=== PATIENT | male | born 1960 | race Caucasian/White ===

== ENCOUNTER 2021-07-06 19:13 | Emergency (ER) | payer OTHER, SELFPAY ==
[2021-07-06 19:14] VITALS: BP 196/114; PULSE 75; RESP 20; TEMP 36.8; O2SAT 95; BMI 57.7
[2021-07-06 19:50] VITALS: BP 186/87; RESP 20; O2SAT 93
--- NOTE | 2021-07-06 19:58 | EX.ED.DYSGE1 ---
HPI History of Present Illness Chief Complaint: Shortness of Breath Narrative Narrative: Positive COVID-19 infection 6 days ago. Nonvaccinated. Symptoms 8 days ago with cough and congestion. No loss of taste or smell. Loose stool yesterday. Today nauseated. States dyspnea is improvement. Just feels fatigued. History of paroxysmal atrial fibrillation. History of diabetes on oral medications. States history of peripheral edema on water pills. He does not take anticoagulation medications. First infection. [facility] Medical History Atrial fibrillation Diabetes Hypertension Home Medications carvedilol [Coreg] 25 mg PO BID 07/06/21 [History Last Taken Unknown] diltiazem HCl [Cartia XT] 120 mg PO DAILY 07/06/21 [History Last Taken Unknown] fluoxetine 40 mg PO DAILY 07/06/21 [History Last Taken Unknown] glyburide-metformin 1 tab PO BID 07/06/21 [History Last Taken Unknown] lisinopril 40 mg PO DAILY 07/06/21 [History Last Taken Unknown] metolazone 2.5 mg PO DAILY 07/06/21 [History Last Taken Unknown] potassium chloride 10 meq PO DAILY 07/06/21 [History Last Taken Unknown] spironolactone 25 mg PO DAILY 07/06/21 [History Last Taken Unknown] torsemide 100 mg PO DAILY 07/06/21 [History Last Taken Unknown] Allergy/AdvReac Type Severity Reaction Status Date / Time codeine Allergy Swelling Verified 07/06/21 19:17 Surgical History History of elbow surgery Social History Smoking Status: Former smoker ROS ROS ED Constitutional Constitutional ED: Denies chills, fever(s) or sweats Eyes Eyes: Denies change in vision ENT ENT ED: Denies dysphagia or sore throat Cardiovascular Cardiovascular: Denies chest pain, leg edema, palpitations or racing heartbeat Respiratory/Chest Respiratory/Chest: Reports cough and dyspnea; Denies dyspnea on exertion Gastrointestinal Gastrointestinal: Reports nausea; Denies abdominal pain, diarrhea or vomiting Genitourinary Genitourinary ED: Denies dysuria, hematuria or urinary frequency Musculoskeletal Musculoskeletal: Denies back pain, extremity pain or neck pain Integumentary Denies rash or wounds Neurologic Neurologic: Denies headache(s), paresthesias or weakness EXAM Physical Exam Const Vital Signs: 07/06/21 19:14 07/06/21 19:50 07/06/21 20:25 Temperature 98.3 F Temperature Source Temporal Pulse Rate 75 Respiratory Rate 20 H 20 H Blood Pressure 196/114 H 186/87 H Blood Pressure Mean 141 120 Pulse Ox 95 93 96 Oxygen Delivery Method Room Air Room Air Nasal Cannula Oxygen Flow Rate (L/min) 2 07/06/21 21:18 Temperature 98.3 F Temperature Source Temporal Pulse Rate 78 Respiratory Rate 20 H Blood Pressure 184/78 H Blood Pressure Mean 113 Pulse Ox 97 Oxygen Delivery Method Nasal Cannula Oxygen Flow Rate (L/min) 2 Positive well nourished and well developed General Appearance ED: well developed and NAD HEENT Reports dry mucous membranes normocephalic and atraumatic Mouth ED: Yes dry mucous membranes Mouth: dry mucous membranes Eyes PERRL, EOMs intact bilaterally and conjunctivae normal General Eye ED: Yes normal appearance of both eyes Neck no lymphadenopathy and supple General: Negative for tenderness Chest Wall Chest: Negative for tenderness Resp normal respiratory effort and normal air movement Effort and Inspection: symmetric chest movement; Negative for respiratory distress Cardio regular rate, regular rhythm and no murmurs Peripheral Pulses: pulses 2+ throughout GI normal to inspection, nondistended, normoactive bowel sounds and non-tender Palpation: Negative for guarding or rebound tenderness present Back/Spine no CVA tenderness and no thoracic nor lumbar tenderness Extremity normal to inspection General Extremety ED: Negative for edema or tenderness General Extremity: Negative for edema Neuro oriented x3 and no sensory deficits noted Sensorium / Orientation: awake and alert Skin no rashes or lesions noted and no wounds MDM MDM MDM Narrative Medical decision making narrative: Patient vitals stable pulse ox 93% on arrival. Blood glucose 135. He is already on Decadron. Concerning work-up labs are stable chest x-ray notes viral pneumonia. With sitting nursing no pulse ox 88% he is placed on oxygen is stable. With his hypoxia I spoke with hospitalist team for admission. He did be a candidate for antiviral treatment. He will be placed on the Covid floor. Lab Data Labs: Laboratory Results - last 24 hr 07/06/21 07/06/21 07/06/21 19:45 19:45 20:16 WBC 5.5 RBC 4.34 L Hgb 12.9 L Hct 39.3 L MCV 90.6 MCH 29.7 MCHC 32.8 RDW Std Deviation 45.9 H RDW Coeff of Daniel 13.8 Plt Count 167 MPV 9.5 Immature Gran % (Auto) 0.600 Neut % (Auto) 73.5 H Lymph % (Auto) 14.7 L [place] % (Auto) 9.0 Eos % (Auto) 1.8 Baso % (Auto) 0.4 Absolute Neuts (auto) 4.0 Absolute Lymphs (auto) 0.80 L Nucleated RBC % 0 Sodium 137 Potassium 3.4 L Chloride 102 Carbon Dioxide 31.0 Anion Gap 4 L BUN 13 Creatinine 1.09 Estim Creat Clear Calc 83.79 Est GFR (MDRD) Af Amer 89 Est GFR (MDRD) Non-Af 73 BUN/Creatinine Ratio 11.9 Glucose 123 H Calcium 8.6 POC Glucose 135 H Radiography Chest X-Ray - ED: 1 View, Read by ED Physician and Read by Radiologist Diagnostic Testing: Radiology Impression Chest X-Ray 07/06/21 20:15 IMPRESSION: Hazy bilateral airspace disease suspicious for pneumonia including atypical or viral pneumonia. at 2120 Reported and signed by: Saals Kaufman MD Electronically Signed: Salas Kaufman MD at 21:19 EDT Tel , Service support , Viral pneumonia Discharge Plan Triage Chief Complaint: Shortness of Breath ED Provider: Doc Oglesby Dx/Rx/DC Orders Clinical Impression: COVID-19 virus infection, Hypoxia Prescriptions: No Action fluoxetine 40 mg Capsule 40 mg PO DAILY RF: 0 metolazone 2.5 mg Tablet 2.5 mg PO DAILY RF: 0 carvedilol [Coreg] 25 mg Tablet 25 mg PO BID RF: 0 potassium chloride 10 mEq Tablet Extended Release 10 meq PO DAILY RF: 0 spironolactone 25 mg Tablet 25 mg PO DAILY RF: 0 torsemide 100 mg Tablet 100 mg PO DAILY RF: 0 glyburide-metformin 5-500 mg Tablet 1 tab PO BID RF: 0 diltiazem HCl [Cartia XT] 120 mg capsule,extended release 24hr 120 mg PO DAILY RF: 0 lisinopril 40 mg Tablet 40 mg PO DAILY RF: 0 Primary Care Provider: Wale Melgoza Referrals: Wale Melgoza MD [Primary Care Provider] - Disposition Disposition: Acute Care Hospital
--- NOTE | 2021-07-06 20:15 | RAD_ITS ---
HISTORY: cough, covid 19 EXAMINATION/TECHNIQUE: XR Chest 1 View: 1 view COMPARISON: None FINDINGS: LINES/DEVICES: None. LUNGS: Hazy bilateral airspace opacities without consolidation or effusion. No pneumothorax. MEDIASTINUM AND CARDIOVASCULAR STRUCTURES: Cardiac silhouette not enlarged. Central airways and mediastinal contour are unremarkable. BONES AND SOFT TISSUES: No acute bony abnormalities. RAD/Chest 1 View (Portable) IMPRESSION: Hazy bilateral airspace disease suspicious for pneumonia including atypical or viral pneumonia. at 2120 Reported and signed by: Salas Kaufman MD Electronically Signed: Salas Kaufman MD at 21:19 EDT Tel , Service support ,
[2021-07-06] MEDS: Ondansetron 4 MG/2 ML Vial IV (20:24)
[2021-07-06 20:25] VITALS: O2SAT 88; O2SAT 96
[2021-07-06 20:25] LABS: Basophil# 0.02 X10^3/uL; Basophil% 0.4 % (0-1); Eosinophils% 1.8 % (0-5); Hematocrit 39.3 % (40-54); Hemoglobin 12.9 g/dL (13.0-16.5); Lymphocyte % 14.7 % (19-41); Mean Corp Hgb Conc 32.8 g/dL (32-36); Mean Corpuscular Hgb 29.7 pg (27.0-32.0); Mean Corpuscular Volume 90.6 fL (80-94); Mean Platelet Vol. 9.5 fl (6.2-12.0); Monocyte# 0.49 X10^3/uL; NRBC Flagged by Analyzer 0 % (0-5); Neutrophil # 4.01 X10^3/uL (2.7-7.7); Neutrophil % 73.5 % (47-70); Platelet Count 167 K/mm3 (150-450); RBC Distribution Width CV 13.8 % (11.6-14.6); RBC Distribution Width SD 45.9 fl (35.1-43.9); Red Blood Count 4.34 M/mm3 (4.6-6.2); White Blood Count 5.5 K/mm3 (4.4-11.0)
[2021-07-06 20:26] LABS: Bedside Glucose 135 mg/dL (70-110)
[2021-07-06 20:35] LABS: Anion Gap 4 (5-15); BUN 13 mg/dL (7-18); BUN/Creat Ratio 11.9 RATIO (10-20); Calcium,Total 8.6 mg/dL (8.5-10.1); Chloride 102 mmol/L (98-107); Creatinine, Serum 1.09 mg/dL (0.70-1.30); EST Glomerular Filtration Rate 73 mL/min (>60); Est Glom Filt Rate - Afr Amer 89 mL/min (>60); Estimated Creatinine Clearance 83.79 ml/min; Glucose 123 mg/dL (74-106); Potassium 3.4 mmol/L (3.5-5.1); Sodium Level 137 mmol/L (136-145)
[2021-07-06] MEDS: dexAMETHasone 4 MG Tablet 6 MG PO (21:15)
[2021-07-06 21:18] VITALS: BP 184/78; PULSE 78; RESP 20; TEMP 36.8; O2SAT 97
[2021-07-06 21:53] VITALS: BP 175/84; PULSE 70; RESP 20; TEMP 37.1; O2SAT 97
[2021-07-06 22:17] VITALS: O2SAT 93
--- NOTE | 2021-07-06 22:18 | ED.RN ---
pt refused to sign AMA paperwork. aware of O2 sats being a reason for admission but does not feel he needs to stay.
== END 2021-07-06 22:20 | disposition left against medical advice (07) ==
LOC: ED 21:45 → PCU 22:03
PROVIDERS: Emergency Provider Emergency Medicine; PCP Family Medicine
DX: U07.1 COVID-19 (principal); R09.02 Hypoxemia; Z53.21 Procedure and treatment not carried out due to patient leaving prior to being seen by health care provider; I10 Essential (primary) hypertension; E11.9 Type 2 diabetes mellitus without complications; I48.0 Paroxysmal atrial fibrillation; Z79.84 Long term (current) use of oral hypoglycemic drugs; Z79.899 Other long term (current) drug therapy; Z87.891 Personal history of nicotine dependence
CPT/HCPCS: 71045; 80048; 82962; 85025; 96361; 96374; 99285; J7040; A4216; J2405

== ENCOUNTER 2022-06-03 10:31 | Inpatient (IN) | payer OTHER, SELFPAY ==
[2022-06-03] VITALS (19 sets, daily range): BP systolic 112–175; BP diastolic 46–97; PULSE 51–92; RESP 12–22; TEMP 36.1–37.1; O2SAT 43–100; BMI 51.4
--- NOTE | 2022-06-03 | OM_PTH ---
PATIENT: CHERYL HERRERA LOC: MS3 U#:[id number] AGE/SX: 61/M ROOM: [facility] [place] RE06/03/[address]: Dr. Odessa Guzman MD : 1960 BED: 1 DIS: 06/07/2022 SPEC #: [id number] RECD: 06/06/22 08:04 STATUS: GILMAR RELindsay #: [id number] RAMONA: 06/03/22 00:[address]: Odessa Guzman DEPT: SURGICAL PATHOLOGY RECD BY: Jose Perdue ENTERED: 06/06/22 08:47 SP TYPE: OMENTUM OTHR DR: Dr. Wale Melgoza MD Tissues: A - Omentum, NOS B - HERNIA Procedures: Surgery Specimen Level II Surgery Specimen Level III HEADER OPERATION: Exploratory laparotomy, repair incarcerated ventral hernia PRE-OP DIAGNOSIS: Incarcerated ventral hernia, incarcerated umbilical hernia TISSUE SUBMITTED: A ? Omentum, B ? Hernia sac MICROSCOPIC DIAGNOSIS A. Omentum, partial excision: Mature adipose tissue consistent with omentum with focal vascular congestion and hemorrhage. B. Hernia sac, herniorrhaphy: Fibrosis and mild chronic inflammation. AM:ulysses 06/07/2022 MICROSCOPIC DESCRIPTION Slides are reviewed. GROSS DESCRIPTION A - Received in fixative is one container labeled with the patient's name and designated omentum. The specimen consists of two irregular fragments of yellow fatty tissue resembling omentum that in aggregate measure 23 x 15 x 5 cm. Serial sections do not reveal mass lesions. Paving Stone Installer sections are submitted in three cassettes. B - Received in fixative is one container labeled with the patient's name and designated hernia sac. The specimen consists of three irregular fragments of glistening sanches soft tissue with patchy yellow fatty tissue that in aggregate measure 14 x 12 x 3 cm. Serial sections do not reveal mass lesions. Paving Stone Installer sections are submitted in two cassettes. / AM:ulysses 06/06/2022 TC:3 CPT: 64638, 42318
--- NOTE | 2022-06-03 10:40 | EKG12_ITS ---
Test Reason : ABD PAIN Blood Pressure : / mmHG Vent. Rate : 056 BPM Atrial Rate : 220 BPM P-R Int : 000 ms QRS Dur : 098 ms QT Int : 526 ms P-R-T Axes : 000 -51 026 degrees QTc Int : 507 ms Atrial fibrillation Left anterior fascicular block Prolonged QT Abnormal ECG Confirmed by MAYURI HUANG, MARILY ([id number]), offline editor DARYL ZIMMERMAN ([id number]) on 06/06/2022 11:27:31 AM Referred By: HORACE Confirmed By:MARILY MESSINA MD
--- NOTE | 2022-06-03 10:40 | CT_ITS ---
STUDY: CT ABDOMEN AND PELVIS WITH CONTRAST REASON FOR EXAM: Male, 61 years old. Abd pain, hernia RADIATION DOSAGE (If Supplied By Facility): CTDIvol = ( 18.74 ) mGy, DLP = ( 1390.01 ) mGycm TECHNIQUE: Transaxial images were obtained from the dome of the diaphragm to the symphysis pubis without oral contrast. IV 100mL Isovue-300 was administered. Sagittal and coronal images were reconstructed. Individualized dose optimization techniques were used for this CT. COMPARISON: None. FINDINGS: Mild increased markings at the lung bases suggestive of atelectasis. Coronary artery calcification. Normal liver. There are multiple small gallstones. Normal spleen. Normal pancreas. Normal bilateral adrenal glands. Normal right kidney. Normal left kidney. There is a small hiatal hernia. Normal small intestine. Normal colon. The appendix is visualized and appears normal. There is diffuse atherosclerotic calcification of the abdominal aorta, without a demonstrated aneurysm. Normal inferior vena cava. There is borderline retroperitoneal lymphadenopathy with enlarged nodes no greater than 10mm in the short axis diameter. Normal urinary bladder. Large left paramedian anterior abdominal wall hernia containing fat and nondilated small bowel loops. The neck of the hernia measures 4.8 cm. Increased markings in the subcutaneous tissues overlying the anterior abdominal wall. There are degenerative changes of the visualized lumbar spine. CT/Abdomen/Pelvis W IV Cont ONLY IMPRESSION: Large left paramedian hernia containing fat and nondilated small bowel loops. The neck of the hernia measures 4.8 cm. Multiple small gallstones. Electronically Signed: Romulo Schulz MD at 12:44 EDT ,
--- NOTE | 2022-06-03 10:42 | EX.ED.DYSGE1 ---
HPI History of Present Illness Chief Complaint: Abd Pain Informant: patient Onset/Context/Timing Onset: Today Current Severity: Moderate Maximum Severity: Moderate Narrative Narrative: Patient present secondary to abdominal pain along with nausea, vomiting, and diarrhea. Patient states he started coughing this morning and had sudden worsening abdominal pain around his umbilical hernia. He has had an umbilical hernia for years with no problems. Since then he has had nausea vomiting with a couple episodes of diarrhea as well. No fever or chills. [facility] Medical History Atrial fibrillation Diabetes Hypertension Home Medications carvedilol 25 mg tablet (Coreg) 25 mg PO BID 07/06/21 [History Last Taken Unknown] diltiazem HCl 120 mg capsule,extended release 24 hr (Cartia XT) 120 mg PO DAILY 07/06/21 [History Last Taken Unknown] fluoxetine 40 mg capsule 40 mg PO DAILY 07/06/21 [History Last Taken Unknown] glyburide 5 mg-metformin 500 mg tablet 1 tab PO BID 07/06/21 [History Last Taken Unknown] lisinopril 40 mg tablet 40 mg PO DAILY 07/06/21 [History Last Taken Unknown] metolazone 2.5 mg tablet 2.5 mg PO DAILY 07/06/21 [History Last Taken Unknown] potassium chloride 10 mEq tablet,extended release 10 meq PO DAILY 07/06/21 [History Last Taken Unknown] spironolactone 25 mg tablet 25 mg PO DAILY PRN PRN fluid 07/06/21 [History Last Taken Unknown] torsemide 100 mg tablet 100 mg PO DAILY 07/06/21 [History Last Taken Unknown] Allergy/AdvReac Type Severity Reaction Status Date / Time codeine Allergy Swelling Verified 06/03/22 10:36 Surgical History History of elbow surgery Social History Smoking Status: Former smoker ROS ROS ED Constitutional Constitutional ED: Denies chills or fever(s) Eyes Eyes: Denies change in vision or discharge from eye(s) ENT ENT ED: Denies discharge from eye(s), rhinorrhea or sore throat Cardiovascular Cardiovascular: Denies chest pain or palpitations Respiratory/Chest Respiratory/Chest: Denies cough or dyspnea Gastrointestinal Gastrointestinal: Reports abdominal pain, diarrhea, nausea and vomiting Genitourinary Genitourinary ED: Denies dysuria Musculoskeletal Musculoskeletal: Denies back pain or extremity pain Integumentary Denies Abrasions or rash Neurologic Neurologic: Denies headache(s) or weakness Psychiatric Psychiatric: Denies anxiety or depression Allergic/Immunologic Allergic/Immunologic ED: Denies lip swelling or urticaria EXAM Physical Exam Const Vital Signs: 06/03/22 10:32 06/03/22 11:00 06/03/22 11:31 Temperature 96.9 F L Temperature Source Temporal Pulse Rate 54 L 54 L Pulse Rate [1] Pulse Rate [2] Pulse Rate [3] Pulse Rate [4] Respiratory Rate 17 17 Respiratory Rate [1] Respiratory Rate [2] Respiratory Rate [3] Respiratory Rate [4] Blood Pressure 170/75 H 175/97 H Blood Pressure [1] Blood Pressure [2] Blood Pressure [3] Blood Pressure [4] Blood Pressure Mean 106 123 Pulse Ox 94 99 99 Oxygen Delivery Method Room Air Nasal Cannula Nasal Cannula Oxygen Delivery Method [1] Oxygen Delivery Method [2] Oxygen Delivery Method [3] Oxygen Delivery Method [4] Oxygen Flow Rate (L/min) 2 2 Oxygen Flow Rate (L/min) [1] Oxygen Flow Rate (L/min) [2] Oxygen Flow Rate (L/min) [3] Oxygen Flow Rate (L/min) [4] 06/03/22 12:45 06/03/22 15:09 06/03/22 15:13 Temperature Temperature Source Pulse Rate 51 L 58 L Pulse Rate [1] 56 L Pulse Rate [2] 61 Pulse Rate [3] 58 L Pulse Rate [4] 70 Respiratory Rate 17 21 H Respiratory Rate [1] 21 H Respiratory Rate [2] 19 H Respiratory Rate [3] 22 H Respiratory Rate [4] 21 H Blood Pressure 135/78 H 154/73 H Blood Pressure [1] 157/78 H Blood Pressure [2] 146/79 H Blood Pressure [3] 146/79 H Blood Pressure [4] 151/83 H Blood Pressure Mean 97 Pulse Ox 99 43 Oxygen Delivery Method Nasal Cannula Nasal Cannula Oxygen Delivery Method [1] Nasal Cannula Oxygen Delivery Method [2] Nasal Cannula Oxygen Delivery Method [3] Nasal Cannula Oxygen Delivery Method [4] Nasal Cannula Oxygen Flow Rate (L/min) 2 5 Oxygen Flow Rate (L/min) [1] 6 Oxygen Flow Rate (L/min) [2] 6 Oxygen Flow Rate (L/min) [3] 6 Oxygen Flow Rate (L/min) [4] 6 06/03/22 14:00 06/03/22 15:00 06/03/22 15:20 Temperature Temperature Source Pulse Rate 54 L 59 L Pulse Rate [1] Pulse Rate [2] Pulse Rate [3] Pulse Rate [4] Respiratory Rate 19 H 20 H Respiratory Rate [1] Respiratory Rate [2] Respiratory Rate [3] Respiratory Rate [4] Blood Pressure 159/77 H 158/77 H Blood Pressure [1] Blood Pressure [2] Blood Pressure [3] Blood Pressure [4] Blood Pressure Mean 104 104 Pulse Ox 100 100 Oxygen Delivery Method Nasal Cannula Nasal Cannula Nasal Cannula Oxygen Delivery Method [1] Oxygen Delivery Method [2] Oxygen Delivery Method [3] Oxygen Delivery Method [4] Oxygen Flow Rate (L/min) 2 2 2 Oxygen Flow Rate (L/min) [1] Oxygen Flow Rate (L/min) [2] Oxygen Flow Rate (L/min) [3] Oxygen Flow Rate (L/min) [4] 06/03/22 15:25 06/03/22 15:20 06/03/22 15:25 Temperature Temperature Source Pulse Rate 58 L 59 L Pulse Rate [1] Pulse Rate [2] Pulse Rate [3] Pulse Rate [4] Respiratory Rate 18 22 H Respiratory Rate [1] Respiratory Rate [2] Respiratory Rate [3] Respiratory Rate [4] Blood Pressure 151/83 H 159/82 H Blood Pressure [1] Blood Pressure [2] Blood Pressure [3] Blood Pressure [4] Blood Pressure Mean Pulse Ox 98 99 Oxygen Delivery Method Nasal Cannula Nasal Cannula Nasal Cannula Oxygen Delivery Method [1] Oxygen Delivery Method [2] Oxygen Delivery Method [3] Oxygen Delivery Method [4] Oxygen Flow Rate (L/min) 2 2 2 Oxygen Flow Rate (L/min) [1] Oxygen Flow Rate (L/min) [2] Oxygen Flow Rate (L/min) [3] Oxygen Flow Rate (L/min) [4] 06/03/22 15:32 Temperature Temperature Source Pulse Rate 51 L Pulse Rate [1] Pulse Rate [2] Pulse Rate [3] Pulse Rate [4] Respiratory Rate 20 H Respiratory Rate [1] Respiratory Rate [2] Respiratory Rate [3] Respiratory Rate [4] Blood Pressure 155/82 H Blood Pressure [1] Blood Pressure [2] Blood Pressure [3] Blood Pressure [4] Blood Pressure Mean Pulse Ox 98 Oxygen Delivery Method Nasal Cannula Oxygen Delivery Method [1] Oxygen Delivery Method [2] Oxygen Delivery Method [3] Oxygen Delivery Method [4] Oxygen Flow Rate (L/min) 2 Oxygen Flow Rate (L/min) [1] Oxygen Flow Rate (L/min) [2] Oxygen Flow Rate (L/min) [3] Oxygen Flow Rate (L/min) [4] Positive well nourished, well developed and obese General Appearance ED: well developed Nutritional Appearance: obese HEENT Reports normocephalic and head/scalp atraumatic Eyes PERRL and EOMs intact bilaterally Neck supple Chest Wall inspection of chest normal and palpation of chest normal Resp normal respiratory effort and clear to auscultation bilaterally Cardio regular rate and regular rhythm GI GI Narrative: Generalized abdominal exam reveals soft abdomen with hypoactive bowel sounds. Patient has a painful, distended, firm umbilical hernia measuring 15 x 9 cm just superior to the umbilicus. Palpation: soft Extremity normal to inspection Neuro oriented x3 and no sensory deficits noted Sensorium / Orientation: alert Motor Exam: strength 5/5 throughout Psych mental status grossly normal Skin no rashes or lesions noted MDM MDM MDM Narrative Medical decision making narrative: Patient placed on tour escort. EKG, lab work, CT abdomen pelvis with IV contrast obtained. Patient given morphine and Zofran for pain along with IV fluids. Lab Data Attestation: I reviewed the patient's lab results. Labs: Laboratory Results - last 24 hr 06/03/22 06/03/22 06/03/22 10:50 10:50 10:50 WBC 10.9 RBC 4.42 L Hgb 13.3 Hct 40.3 MCV 91.2 MCH 30.1 MCHC 33.0 RDW Std Deviation 48.0 H RDW Coeff of Daniel 14.3 Plt Count 224 MPV 9.4 Immature Gran % (Auto) 0.400 Neut % (Auto) 85.2 H Lymph % (Auto) 8.7 L [place] % (Auto) 4.4 Eos % (Auto) 0.8 Baso % (Auto) 0.5 Absolute Neuts (auto) 9.3 H Absolute Lymphs (auto) 0.95 Nucleated RBC % 0 Sodium 140 Potassium 3.9 Chloride 104 Carbon Dioxide 31.0 Anion Gap 5 BUN 26 H Creatinine 1.40 H Estim Creat Clear Calc 64.42 Est GFR (MDRD) Af Amer 66 Est GFR (MDRD) Non-Af 55 L BUN/Creatinine Ratio 18.6 Glucose 189 H Lactic Acid 1.3 Calcium 9.3 Total Bilirubin 0.70 Direct Bilirubin 0.30 AST 16 ALT 16 Alkaline Phosphatase 79 Total Protein 8.0 Albumin 3.7 Globulin 4.3 H Radiography Diagnostic Testing: Clinical Impression(s) from Imaging Studies Abdomen/Pelvis CT 06/03/22 10:40 IMPRESSION: Large left paramedian hernia containing fat and nondilated small bowel loops. The neck of the hernia measures 4.8 cm. Multiple small gallstones. Electronically Signed: Romulo Schulz MD at 12:44 EDT , EKG Initial EKG: Attestation: I personally reviewed and interpreted this EKG as follows: Interpretation: Atrial Fibrillation (Atrial fibrillation with ventricular rate of 56 bpm. QTC is 507.) Treatment and Re-Evaluation Narrative: Lab work is unremarkable with a normal lactic acid. Creatinine is slightly bumped at 1.4. Patient's O2 sat did drop to around 89% after receiving pain medication. He is currently on 2 L nasal cannula and satting in the high 90s. CT scan reveals hernia with loop of bowel. On repeat evaluation patient was resting much more comfortably and I attempted to reduce hernia without success. I spoke with surgery who presented to the emergency room. She attempted to reduce hernia without success as well. Patient was consented for procedural sedation and attempt at umbilical reduction was obtained under sedation. Repeat CT images revealed that this was again unsuccessful. Patient be admitted to surgery with plan to go to the OR later tonight. Procedures Procedural Sedation Procedural sedation for umbilical hernia reduction: Consent Signed: Yes Any Problems With Anesthesia: Yes (Made me sick) You/Your family experience fever (hyperthermia) w/anesthesia: No Sedation medication: Propofol (100 mg total given in 2 separate aliquots.) Dose: 100 Route: IV Mallampati Score: Class III ASA Classification: III Discharge Plan Triage Chief Complaint: Abd Pain ED Provider: Marcie Lee Dx/Rx/DC Orders Clinical Impression: Hernia, umbilical Primary Care Provider: Wale Melgoza Disposition Disposition: Acute Care Hospital [facility]
[2022-06-03] MEDS: 0.9% Normal Saline 1,000 ML 150 ML IV (10:47)
[2022-06-03] MEDS: Ondansetron 4 MG/2 ML Vial IV (10:47)
[2022-06-03] MEDS: Morphine 4 MG/ML Syringe IV (10:47)
[2022-06-03 11:09] LABS: Absolute Lymphocyte Count 0.95 X10^3/uL (0.83-4.51); Absolute Neutrophil Count 9.3 X10^3/uL (2.0-7.7); Basophil# 0.05 X10^3/uL; Basophil% 0.5 % (0-1); Eosinophil# 0.09 X10^3/uL; Eosinophils% 0.8 % (0-5); Hematocrit 40.3 % (40-54); Hemoglobin 13.3 g/dL (13.0-16.5); Lymphocyte # 0.95 X10^3/ul (0.83-4.51); Lymphocyte % 8.7 % (19-41); Mean Corpuscular Hgb 30.1 pg (27.0-32.0); Mean Corpuscular Volume 91.2 fL (80-94); Mean Platelet Vol. 9.4 fl (6.2-12.0); Monocyte# 0.48 X10^3/uL; Monocyte% 4.4 % (0-10); NRBC Flagged by Analyzer 0 % (0-5); Neutrophil # 9.33 X10^3/uL (2.7-7.7); Neutrophil % 85.2 % (47-70); Platelet Count 224 K/mm3 (150-450); RBC Distribution Width CV 14.3 % (11.6-14.6); Red Blood Count 4.42 M/mm3 (4.6-6.2); White Blood Count 10.9 K/mm3 (4.4-11.0)
[2022-06-03 11:16] LABS: AST(SGOT) 16 U/L (15-37); Alanine Aminotransfer ALT/SGPT 16 U/L (16-61); Albumin, Serum 3.7 g/dL (3.2-5.0); Alkaline Phosphatase 79 U/L (45-117); Anion Gap 5 (5-15); BUN 26 mg/dL (7-18); BUN/Creat Ratio 18.6 RATIO (10-20); Calcium,Total 9.3 mg/dL (8.5-10.1); Chloride 104 mmol/L (98-107); EST Glomerular Filtration Rate 55 mL/min (>60); Est Glom Filt Rate - Afr Amer 66 mL/min (>60); Estimated Creatinine Clearance 64.42 ml/min; Globulin 4.3 g/dL (2.2-4.2); Glucose 189 mg/dL (74-106); Potassium 3.9 mmol/L (3.5-5.1); Sodium Level 140 mmol/L (136-145)
[2022-06-03 11:24] LABS: Lactic Acid 1.3 mmol/L (0.4-1.9)
[2022-06-03] MEDS: proMETHazine 25 MG/ML Syringe IM (14:31)
[2022-06-03] MEDS: Propofol 200 MG/20 ML Vial IV BOLUS (15:12)
--- NOTE | 2022-06-03 15:21 | CT_ITS ---
EXAM: CT ABDOMEN WITHOUT INTRAVENOUS CONTRAST CLINICAL INDICATION: hernia TECHNIQUE: Helically acquired images were obtained of the abdomen without intravenous contrast. This CT exam was performed using one or more of the following dose reduction techniques: automated exposure control, adjustment of the mA and/or kV according to patient size, and/or use of iterative reconstruction technique. This report was created using [employer] report generation technology. COMPARISON: 11:55 AM. FINDINGS: LOWER THORAX: Unremarkable. Lung bases are clear. No cardiomegaly. No significant pericardial effusion. LIVER: Unremarkable. Homogeneous. GALLBLADDER AND BILE DUCTS: Multiple dependent stones in the gallbladder. No gallbladder distention or wall edema. No intra- or extrahepatic biliary ductal dilation. PANCREAS: Unremarkable. No focal cystic mass. SPLEEN: Unremarkable. Normal size without focal cystic or solid mass. ADRENALS: Unremarkable. No nodules. KIDNEYS AND URETERS: Retained contrast in the renal collecting systems. No filling defect. 6 cm low-attenuation lesion arising from the right kidney, cystic based on earlier examination. No hydronephrosis. STOMACH AND BOWEL: Moderate left periumbilical abdominal wall hernia contains a loop of mildly dilated small bowel. Distal small bowel is decompressed. The neck of the hernia measures 4.7 cm, unchanged. Diverticulosis, no acute diverticulitis. INTRAPERITONEAL SPACE: Unremarkable. No ascites or other fluid collection. No free air. BONES/JOINTS: Lumbar canal stenosis at L3-4 and L4-5. No suspicious lytic or blastic abnormality. VASCULATURE: Abdominal aorta is normal in caliber. LYMPH NODES: No enlarged lymph nodes. CT/Abdomen without IV Contrast IMPRESSION: 1. Moderate left paraumbilical hernia with suspected low-grade/partial small bowel obstruction. 2. Cholelithiasis. 3. Lumbar canal stenosis. 4. Right renal cyst. Follow-up is not indicated per ACR guidelines. Electronically Signed: Kim Perez MD at 16:36 EDT Reading Location ID and State: [id number] / Tel , Service support ,
--- NOTE | 2022-06-03 15:23 | HP.PCM_ITS ---
HPI - General General Chief Complaint: Abdominal pain/ventral hernia HPI Narrative CHERYL HERRERA, is a 61 M who presents to the ER due to abdominal pain/ventral hernia. Patient states he noticed increased pain after coughing about 5 AM this morning. Patient was driving to work but did have increased pain thus came to the ER. In the ER patient had a CT abdomen pelvis which showed an umbilical hernia containing nondilated bowel and an additional hernia directly superior with some reactive changes/fluid in the hernia. Patient denies any abdominal surgeries. Patient states that normally his umbilical hernia is out and has been for a while and is usually firm to touch. Unable to reduce after pain meds. [facility] Medical History Atrial fibrillation Diabetes Hypertension Home Medications carvedilol 25 mg tablet (Coreg) 25 mg PO BID 07/06/21 [History Last Taken Unknown] diltiazem HCl 120 mg capsule,extended release 24 hr (Cartia XT) 120 mg PO DAILY 07/06/21 [History Last Taken Unknown] fluoxetine 40 mg capsule 40 mg PO DAILY 07/06/21 [History Last Taken Unknown] glyburide 5 mg-metformin 500 mg tablet 1 tab PO BID 07/06/21 [History Last Taken Unknown] lisinopril 40 mg tablet 40 mg PO DAILY 07/06/21 [History Last Taken Unknown] metolazone 2.5 mg tablet 2.5 mg PO DAILY 07/06/21 [History Last Taken Unknown] potassium chloride 10 mEq tablet,extended release 10 meq PO DAILY 07/06/21 [History Last Taken Unknown] spironolactone 25 mg tablet 25 mg PO DAILY PRN PRN fluid 07/06/21 [History Last Taken Unknown] torsemide 100 mg tablet 100 mg PO DAILY 07/06/21 [History Last Taken Unknown] Allergy/AdvReac Type Severity Reaction Status Date / Time codeine Allergy Swelling Verified 06/03/22 10:36 Surgical History History of elbow surgery Social History Smoking Status: Former smoker Vital Signs Vital Signs Vital Signs: 06/03/22 10:32 06/03/22 11:00 06/03/22 11:31 Temperature 96.9 F L Temperature Source Temporal Pulse Rate 54 L 54 L Pulse Rate [1] Pulse Rate [2] Pulse Rate [3] Pulse Rate [4] Respiratory Rate 17 17 Respiratory Rate [1] Respiratory Rate [2] Respiratory Rate [3] Respiratory Rate [4] Blood Pressure 170/75 H 175/97 H Blood Pressure [1] Blood Pressure [2] Blood Pressure [3] Blood Pressure [4] Blood Pressure Mean 106 123 Pulse Ox 94 99 99 Oxygen Delivery Method Room Air Nasal Cannula Nasal Cannula Oxygen Delivery Method [1] Oxygen Delivery Method [2] Oxygen Delivery Method [3] Oxygen Delivery Method [4] Oxygen Flow Rate (L/min) 2 2 Oxygen Flow Rate (L/min) [1] Oxygen Flow Rate (L/min) [2] Oxygen Flow Rate (L/min) [3] Oxygen Flow Rate (L/min) [4] 06/03/22 12:45 06/03/22 15:09 06/03/22 15:13 Temperature Temperature Source Pulse Rate 51 L 58 L Pulse Rate [1] 56 L Pulse Rate [2] 61 Pulse Rate [3] 58 L Pulse Rate [4] 70 Respiratory Rate 17 21 H Respiratory Rate [1] 21 H Respiratory Rate [2] 19 H Respiratory Rate [3] 22 H Respiratory Rate [4] 21 H Blood Pressure 135/78 H 154/73 H Blood Pressure [1] 157/78 H Blood Pressure [2] 146/79 H Blood Pressure [3] 146/79 H Blood Pressure [4] 151/83 H Blood Pressure Mean 97 Pulse Ox 99 43 Oxygen Delivery Method Nasal Cannula Nasal Cannula Oxygen Delivery Method [1] Nasal Cannula Oxygen Delivery Method [2] Nasal Cannula Oxygen Delivery Method [3] Nasal Cannula Oxygen Delivery Method [4] Nasal Cannula Oxygen Flow Rate (L/min) 2 5 Oxygen Flow Rate (L/min) [1] 6 Oxygen Flow Rate (L/min) [2] 6 Oxygen Flow Rate (L/min) [3] 6 Oxygen Flow Rate (L/min) [4] 6 06/03/22 14:00 Temperature Temperature Source Pulse Rate 54 L Pulse Rate [1] Pulse Rate [2] Pulse Rate [3] Pulse Rate [4] Respiratory Rate 19 H Respiratory Rate [1] Respiratory Rate [2] Respiratory Rate [3] Respiratory Rate [4] Blood Pressure 159/77 H Blood Pressure [1] Blood Pressure [2] Blood Pressure [3] Blood Pressure [4] Blood Pressure Mean 104 Pulse Ox 100 Oxygen Delivery Method Nasal Cannula Oxygen Delivery Method [1] Oxygen Delivery Method [2] Oxygen Delivery Method [3] Oxygen Delivery Method [4] Oxygen Flow Rate (L/min) 2 Oxygen Flow Rate (L/min) [1] Oxygen Flow Rate (L/min) [2] Oxygen Flow Rate (L/min) [3] Oxygen Flow Rate (L/min) [4] Weight Weight: 400 lb 12.806 oz Body Mass Index (BMI) 51.4 Physical Exam Const alert and oriented x3 HEENT normocephalic and head/scalp atraumatic Resp normal respiratory effort Cardio regular rate GI soft to palpation; Negative for non-distended Palpation: tender periumbilical (At incarcerated hernias) and hernia ventral (Large incarcerated ventral hernia, CT actually shows a large hernia as well as a smaller 1 directly superior. Firm, tender, unable to reduce after pain meds); Negative for guarding Extremity no clubbing, cyanosis or edema Neuro CN's II-XII intact bilaterally Psych mental status grossly normal Results Lab / Micro Data Result Diagrams: 06/03/22 10:50 06/03/22 10:50 Labs: Laboratory Results - last 24 hr 06/03/22 10:50: WBC 10.9, RBC 4.42 L, Hgb 13.3, Hct 40.3, MCV 91.2, MCH 30.1, MCHC 33.0, RDW Std Deviation 48.0 H, RDW Coeff of Daniel 14.3, Plt Count 224, MPV 9.4, Immature Gran % (Auto) 0.400, Neut % (Auto) 85.2 H, Lymph % (Auto) 8.7 L, [place] % (Auto) 4.4, Eos % (Auto) 0.8, Baso % (Auto) 0.5, Absolute Neuts (auto) 9.3 H, Absolute Lymphs (auto) 0.95, Nucleated RBC % 0 06/03/22 10:50: Sodium 140, Potassium 3.9, Chloride 104, Carbon Dioxide 31.0, Anion Gap 5, BUN 26 H, Creatinine 1.40 H, Estim Creat Clear Calc 64.42, Est GFR (MDRD) Af Amer 66, Est GFR (MDRD) Non-Af 55 L, BUN/Creatinine Ratio 18.6, Glucose 189 H, Calcium 9.3, Total Bilirubin 0.70, Direct Bilirubin 0.30, AST 16, ALT 16, Alkaline Phosphatase 79, Total Protein 8.0, Albumin 3.7, Globulin 4.3 H 06/03/22 10:50: Lactic Acid 1.3 Radiology Impression Abdomen/Pelvis CT 06/03/22 10:40 IMPRESSION: Large left paramedian hernia containing fat and nondilated small bowel loops. The neck of the hernia measures 4.8 cm. Multiple small gallstones. Electronically Signed: Romulo Schulz MD at 12:44 EDT , Assessment & Plan Assessment/Plan (1) Incarcerated ventral hernia: (2) Umbilical hernia, incarcerated: PLAN: Plan Did review CT abdomen pelvis with the patient and his son. Patient does have a larger umbilical hernia with the neck of about 4-1/2 cm which contains nondilated small bowel. However just superior to that he has an additional hernia about 2 cm which contains abdominal fat as well as reactive changes and fluid. Patient's abdominal pain is likely due to the upper hernia with possible strangulation of abdominal fat. Patient's umbilical hernia does not show any reactive changes and the bowel is nondilated not causing any obstructive symptoms. Plan to try to reduce with sedation by the ER physician. Did discuss with patient if unable to reduce patient may require surgery to be able exploratory laparotomy, repair of incarcerated ventral hernias, possible mesh. Discussed with patient risk of injury to another organ, bleeding, infection, recurrent hernia, which is high likelihood if unable to put mesh due to the reactive changes. Discussed with patient that if the mesh were to be placed and got infected it would need to be removed. Patient had no further question at this time did sign consent prior to the conscious sedation. Addendum: Unsure patient's superior ventral hernia was able to be reduced we will check a quick CT abdomen pelvis noncontrast to see at his the larger hernia is definitely unable to be reduced but that does not seem to be as acute cause of pain currently. Repeat CT abdomen/pelvis showed no change of the incarcerated ventral hernia. Plan for surgery janay. Odessa Guzman M.D. Pager: [phone] [facility] [address] [place] [address], [address] [place] [address] Office: [phone]
--- NOTE | 2022-06-03 16:26 | RAD_ITS ---
STUDY: X-RAY CHEST REASON FOR EXAM: Male, 61 years old. Preop TECHNIQUE: Single AP portable view of the chest. COMPARISON: 07/06/2021 FINDINGS: The lungs are clear and expanded. There is no demonstrated pleural abnormality. Normal size heart. Normal mediastinum and luz. Normal visualized pulmonary arteries. Normal visualized aortic arch and descending thoracic aorta. Normal visualized thoracic spine. Normal visualized ribs, clavicles, and shoulders. There is no demonstrated abnormality of the visualized soft tissue structures of the upper abdomen. RAD/Chest 1 View (Portable) IMPRESSION: Normal x-ray examination of the chest. Electronically Signed: Eris Enriquez DO at 0:23 EDT ,
--- NOTE | 2022-06-03 16:31 | PN.HOSP_ITS ---
Documented by User: Hanna Quintanilla NP, OPEN SHANK COVERER-C 06/03/22 16:44 Subjective Subjective Patient seen and examined in the emergency room. Patient reports abdominal pain which began around 5 AM this morning and associated nausea, vomiting. Evaluated by surgery and found to incarcerated ventral hernia. Plan for OR per surgery. Objective Data Objective Data Vital Signs: Vital Signs Temp Pulse Resp BP Pulse Ox O2 Del Method O2 Flow Rate 96.9 F L 51 L 20 H 155/82 H 98 Nasal Cannula 2 06/03/22 10:32 06/03/22 15:32 06/03/22 15:32 06/03/22 15:32 06/03/22 15:32 06/03/22 15:32 06/03/22 15:32 Oxygen Flow Rate (L/min) [1] 6 Oxygen Flow Rate (L/min) [4] 6 Oxygen Flow Rate (L/min) [3] 6 Oxygen Flow Rate (L/min) [2] 6 Oxygen Flow Rate (L/min) 2 Oxygen Delivery Method [1] Nasal Cannula Oxygen Delivery Method [4] Nasal Cannula Oxygen Delivery Method [3] Nasal Cannula Oxygen Delivery Method [2] Nasal Cannula Oxygen Delivery Method Nasal Cannula Weight: 400 lb 12.806 oz Body Mass Index (BMI) 51.4 Lab / Micro Data Result Diagrams: 06/03/22 10:50 06/03/22 10:50 Labs: Laboratory Results - last 24 hr 06/03/22 10:50: WBC 10.9, RBC 4.42 L, Hgb 13.3, Hct 40.3, MCV 91.2, MCH 30.1, MCHC 33.0, RDW Std Deviation 48.0 H, RDW Coeff of Daniel 14.3, Plt Count 224, MPV 9.4, Immature Gran % (Auto) 0.400, Neut % (Auto) 85.2 H, Lymph % (Auto) 8.7 L, [place] % (Auto) 4.4, Eos % (Auto) 0.8, Baso % (Auto) 0.5, Absolute Neuts (auto) 9.3 H, Absolute Lymphs (auto) 0.95, Nucleated RBC % 0 06/03/22 10:50: Sodium 140, Potassium 3.9, Chloride 104, Carbon Dioxide 31.0, Anion Gap 5, BUN 26 H, Creatinine 1.40 H, Estim Creat Clear Calc 64.42, Est GFR (MDRD) Af Amer 66, Est GFR (MDRD) Non-Af 55 L, BUN/Creatinine Ratio 18.6, Glucose 189 H, Calcium 9.3, Total Bilirubin 0.70, Direct Bilirubin 0.30, AST 16, ALT 16, Alkaline Phosphatase 79, Total Protein 8.0, Albumin 3.7, Globulin 4.3 H 06/03/22 10:50: Lactic Acid 1.3 Radiography Diagnostic Testing: Radiology Impression Abdomen/Pelvis CT 06/03/22 10:40 IMPRESSION: Large left paramedian hernia containing fat and nondilated small bowel loops. The neck of the hernia measures 4.8 cm. Multiple small gallstones. Electronically Signed: Romulo Schulz MD at 12:44 EDT , Physical Exam Const alert and oriented x3 Constitutional Narrative: Appears uncomfortable, flat affect Nutritional Appearance: obese HEENT normocephalic Mouth: dry mucous membranes Eyes PERRL, EOMs intact bilaterally and conjunctivae normal Neck no lymphadenopathy Resp normal respiratory effort and clear to auscultation bilaterally Cardio no murmurs Cardio Narrative: Atrial fibrillation, mild bradycardia Peripheral Pulses: pulses 2+ throughout GI normal to inspection, nondistended, normoactive bowel sounds Palpation: tender and hernia Extremity normal to inspection Skin no rashes or lesions noted Skin Narrative: Chronic venous stasis skin changes bilateral lower extremities Lesions: no lesions Rashes: no rashes Trauma: no lacerations or abrasions Neuro CN's II-XII intact bilaterally, no focal motor deficits, no sensory deficits no stan and deep tendon reflexes 2+ bilaterally Psych mental status grossly normal Assessment & Plan Assessment/Plan (1) Incarcerated ventral hernia: PLAN: Plan 1. Incarcerated ventral hernia-management per surgery. Plan for OR. EKG demonstrates atrial fibrillation with mild bradycardia. Obtain chest x-ray. Patient reports upper respiratory infection 2 weeks ago. Tested negative for COVID. If chest x-ray unremarkable, okay to proceed to OR from medical standpoint. Patient denies shortness of breath, chest pain. 2. Renal insufficiency-likely secondary to #1. IV fluids, trend BMP. 3. Paroxysmal atrial fibrillation-on carvedilol. Heart rate in the 50s. Patient is not on anticoagulation as he states his A. fib is not that bad. [id number] score 2 based on hypertension and diabetes history. Patient ideally should be on oral anticoagulation. Will defer this to primary care following surgical intervention. 4. Hypertension-stable, continue lisinopril, carvedilol. 5. Depression-on fluoxetine. 6. Morbid obesity-diet and lifestyle modifications encouraged. 7. Type 2 diabetes [id number] with sliding scale insulin. Hold oral regimen. Hemoglobin A1c pending. DVT prophylaxis-Per surgery This patient was seen by JAMEY Hankins under the supervision of Dr. Reynoso. Documented by User: Dr. Leanna Reynoso DO 06/03/22 17:08 Subjective Subjective Was seen in conjunction with Hanna Quintanilla NP. The following represents my independent history and physical examination. Please see below for addendum the above. Mr. Mejia is a 61-year-old morbidly obese white male who presents emergency department secondary to abdominal pain, nausea, vomiting and diarrhea. The patient reported he started coughing this morning and had a sudden worsening ons et of abdominal pain around his umbilical hernia. The patient indicated he had an umbilical hernia for years and has not had any episodes with this. Since that point time he had nausea with vomiting and a couple episodes of diarrhea. He denied any fever or chills on presentation. His vital signs are overall unremarkable other than bradycardia. Heart rates have been in the 50s while in the emergency department. Patient is on rate controlling medication with carvedilol 25 mg daily at baseline. He has a history of atrial fibrillation however is not anticoagulated. The patient states he does not know why he is not anticoagulated. He denies ever seeing cardiology. He has no known cardiac history other than arrhythmia. His CBC was overall unremarkable. His chemistry panel showed only CHAO with BUN of 2.6 and a serum creatinine of 1.14 with a baseline serum creatinine of about 1. Serum glucose was 189. His lactic acid was normal at 1.3. His LFTs are unremarkable. TSH is normal at 2.04. A CT of his abdomen pelvis without IV contrast was ordered and showed a moderate left periumbilical hernia with suspected low-grade/partial small bowel obstruction, cholelithiasis, lumbar stenosis, and a right renal cyst which does not need follow-up per guidelines. Preoperative EKG shows atrial fibrillation with bradycardia without any ST-T wave changes consistent with acute ischemia, slightly prolonged QTC at 507. His chest x-ray showed no significant abnormalities other than right hemidiaphragm elevation. I have no previous for comparison. We were able to call his primary care physician and his pharmacy to verify his medications. It appears that he has multiple medications that have been ordered by his primary care physician yet are not filled by the pharmacy. We will continue his medications which are appropriate at this time and monitor for further needs ongoing. Objective Data Lab / Micro Data Result Diagrams: 06/03/22 10:50 06/03/22 10:50 Physical Exam Const alert, oriented x3 and well nourished Constitutional Narrative: Super morbidly obese white male lying in left side-lying, appears markedly uncomfortable but nontoxic, minimally interactive and difficult to get history from him HEENT head/scalp atraumatic HEENT Narrative: Mallampati is 4, no thrush noted, difficult to observe mentation Head and Scalp: normocephalic Mouth: dry mucous membranes Eyes PERRL, EOMs intact bilaterally and conjunctivae normal Eyes Narrative: No scleral icterus Neck supple Neck Narrative: Neck is short and thick, trachea midline Resp normal respiratory effort, no retractions, no use of accessory muscles and clear to auscultation bilaterally Resp Narrative: Extremely distant secondary to body habitus Auscultation: Negative for crackles, rales, rhonchi or wheezes Cardio S1 normal heart sound, S2 normal heart sound, no murmurs, no rub, no gallops, no clicks and no JVD GI GI Narrative: Bowel sounds are hypoactive, abdomen is diffusely tender, large overhanging pannus, abdomen is soft, umbilical hernia noted Palpation: tender and hernia umbilical Extremity no clubbing, cyanosis or edema Skin no rashes or lesions noted, no wounds, skin turgor normal, no jaundice, no petechiae and no mottling Neuro oriented x3, CN's II-XII intact bilaterally, moves all extremities, no focal motor deficits and no sensory deficits noted Sensorium / Orientation: awake, alert, oriented to person, oriented to place and oriented to time Speech: speech normal Psych Psych Narrative: Affect is extremely flat and patient minimally interactive Assessment & Plan Assessment/Plan (1) Incarcerated ventral hernia: PLAN: Plan Assessment: Incarcerated umbilical hernia Small bowel obstruction CHAO with a serum creatinine greater than 0.3 above baseline PAF Hypertension DM-2 Depression Super morbid obesity Plan: Operative management per general surgery -Preoperative EKG shows atrial fibrillation with bradycardia and slightly prolonged QTC but no ischemic changes -X-rays pending -Pain management per primary -N.p.o. -IV fluids -We will hold beta-wilfredo and lisinopril perioperatively with bradycardia and CHAO -Monitor to restart -TSH pending with bradycardia -As needed hydralazine for systolic pressure greater than 160 -Supplemental oxygen per protocol--> would recommend nocturnal oxygen as patient is morbidly obese and I highly suspect he has obstructive sleep apnea -SSI with Accu-Cheks -Hemoglobin A1c pending as blood sugar was 189 on presentation -Repeat a.m. labs -DVT prophylaxis per general surgery Charges/Coding Visit Charges Inpatient E&M: 73748 Subs Hosp L2
[2022-06-03 16:51] LABS: Thyroid Stim Hormone (TSH) 2.04 uIU/mL (0.358-3.74)
[2022-06-03 17:12] LABS: Hemoglobin A1c 5.6 % (3.8-5.6)
[2022-06-03 19:06] LABS: Bedside Glucose 142 mg/dL (74-106)
--- NOTE | 2022-06-03 21:44 | OP.PCM_ITS ---
Report of Operation Date of Procedure: 06/03/22 Pre-Operative Diagnosis: Incarcerated, possible strangulated ventral hernia x2 Post-Operative Diagnosis: Strangulated omentum, ventral hernia x2 Surgery/Procedure Performed:: Exploratory laparotomy, repair of incarcerated ventral hernia x2 Description of Surgical Findings:: Inferior ventral hernia did contain bowel which initially appeared bruised and found to be viable after watching, omentum was strangulated, directly superior and additional ventral hernia contained incarcerated omentum. Surgeon: Odessa Guzman beater and pulper feeder: Jaz Mcdonald Type of Anesthesia: General/Supplemental Anesthesiologist: Sarath Shrestha Special Medications: Cefotetan 2 g IV x1 Specimen's removed: 1. Strangulated omentum, 2. Hernia sac x2 Drains: 15 Indian round GISELLA Estimated Blood Loss (mL): 40 CC Fluids Replaced: Per anesthesia Description of Procedure: Patient was brought into the operating room placed supine on the operating table. A timeout was completed verifying correct patient, procedure, site, positioning, special, prior to beginning procedure. General anesthesia was induced. The abdomen was prepped and draped in usual sterile fashion. Incision was planned in the supraumbilical midline overlying the hernias. Incision was made with a 10 blade scalpel. This was deepened with electrocautery. The hernia sac was dissected from the surrounding tissue. Hernia sac was entered found to have strangulated omentum and some bruised small. Omentum was excised using the Enseal. Small bowel is watched and was viable. The more superior of the 2 hernias did contain reactive change along with fluid on CT thus the 2 hernias were connected using electrocautery. The incarcerated omentum was viable in the superior hernia and it was reduced back into the abdomen. The hernia sac was removed. There was some bleeding from the omentum which was controlled with Enseal as well as a 3-0 Vicryl suture. The fascia was cleared defect was about 7 cm. This was closed with 6 [id number] 2 Prolene. Wound was irrigated. A 15 Indian round GISELLA was placed in the subcutaneous space and secured with 3-0 nylon suture. Incision was closed with subdermal sutures of 3-0 Vicryl and skin quinton. Telfa and 4 x 4's and tape placed. Patient was extubated Patient tolerated procedure well and taken to the postanesthesia care unit in stable condition. Complications NONE
[2022-06-03 22:41] LABS: Bedside Glucose 135 mg/dL (74-106)
[2022-06-03] MEDS: Lactated Ringers 1,000 ML 100 ML IV (23:30)
--- NOTE | 2022-06-03 23:42 | NURSING ---
Pt refused to be weighed
[2022-06-04 00:31] LABS: Bedside Glucose 122 mg/dL (74-106)
[2022-06-04 01:27] VITALS: BP 116/68; PULSE 72; RESP 18; TEMP 36.8; O2SAT 99
[2022-06-04 03:27] VITALS: BP 120/46; PULSE 70; RESP 18; TEMP 36.9; O2SAT 99
[2022-06-04] MEDS: Morphine 2 MG/ML Syringe IV ×2 (04:04→08:57)
[2022-06-04] MEDS: 0.9% Saline Lock 10 ML Syringe IV ×2 (04:04→08:58)
[2022-06-04] MEDS: Lactated Ringers 1,000 ML 100 ML IV (06:34)
--- NOTE | 2022-06-04 06:49 | PCM.PN.SRG ---
Subjective Subjective Patient complains of abdominal pain, has not been up walking or using IS. Patient denies flatus Objective Data Objective Data Vital Signs: Vital Signs Temp Pulse Resp BP Pulse Ox O2 Del Method O2 Flow Rate 98.4 F 70 18 120/46 L 99 Nasal Cannula 3 06/04/22 03:27 06/04/22 03:27 06/04/22 03:27 06/04/22 03:27 06/04/22 03:27 06/04/22 03:06/04/22 01:27 Oxygen Flow Rate (L/min) [1] 6 Oxygen Flow Rate (L/min) [4] 6 Oxygen Flow Rate (L/min) [3] 6 Oxygen Flow Rate (L/min) [2] 6 Oxygen Flow Rate (L/min) 3 Oxygen Delivery Method [1] Nasal Cannula Oxygen Delivery Method [4] Nasal Cannula Oxygen Delivery Method [3] Nasal Cannula Oxygen Delivery Method [2] Nasal Cannula Oxygen Delivery Method Nasal Cannula Weight: 400 lb 12.806 oz Body Mass Index (BMI) 51.4 Intake & Output: Intake and Output for Last 24 Hours 06/02/22 06/03/22 06/04/22 23:59 23:59 23:59 Intake Total 1100 / 1100 706.67 / 706.67 Balance 1100 / 1100 706.67 / 706.67 Lab / Micro Data Result Diagrams: 06/04/22 05:59 06/03/22 10:50 Labs: Laboratory Results - last 24 hr 06/03/22 10:50: WBC 10.9, RBC 4.42 L, Hgb 13.3, Hct 40.3, MCV 91.2, MCH 30.1, MCHC 33.0, RDW Std Deviation 48.0 H, RDW Coeff of Daniel 14.3, Plt Count 224, MPV 9.4, Immature Gran % (Auto) 0.400, Neut % (Auto) 85.2 H, Lymph % (Auto) 8.7 L, [place] % (Auto) 4.4, Eos % (Auto) 0.8, Baso % (Auto) 0.5, Absolute Neuts (auto) 9.3 H, Absolute Lymphs (auto) 0.95, Nucleated RBC % 0 06/03/22 10:50: Sodium 140, Potassium 3.9, Chloride 104, Carbon Dioxide 31.0, Anion Gap 5, BUN 26 H, Creatinine 1.40 H, Estim Creat Clear Calc 64.42, Est GFR (MDRD) Af Amer 66, Est GFR (MDRD) Non-Af 55 L, BUN/Creatinine Ratio 18.6, Glucose 189 H, Calcium 9.3, Total Bilirubin 0.70, Direct Bilirubin 0.30, AST 16, ALT 16, Alkaline Phosphatase 79, Total Protein 8.0, Albumin 3.7, Globulin 4.3 H 06/03/22 10:50: Lactic Acid 1.3 06/03/22 10:50: TSH 2.04 06/03/22 10:50: Hemoglobin A1c 5.6 06/03/22 18:45: POC Glucose 142 H 06/03/22 22:23: POC Glucose 135 H 06/04/22 00:10: POC Glucose 122 H Radiography Diagnostic Testing: Radiology Impression Abdomen/Pelvis CT 06/03/22 10:40 IMPRESSION: Large left paramedian hernia containing fat and nondilated small bowel loops. The neck of the hernia measures 4.8 cm. Multiple small gallstones. Electronically Signed: Romulo Schulz MD at 12:44 EDT , Abdomen CT 06/03/22 15:21 IMPRESSION: 1. Moderate left paraumbilical hernia with suspected low-grade/partial small bowel obstruction. 2. Cholelithiasis. 3. Lumbar canal stenosis. 4. Right renal cyst. Follow-up is not indicated per ACR guidelines. Electronically Signed: Kim Perez MD at 16:36 EDT Reading Location ID and State: [id number] / Tel , Service support , Chest X-Ray 06/03/22 16:26 IMPRESSION: Normal x-ray examination of the chest. Electronically Signed: Eris Enriquez DO at 0:23 EDT , Physical Exam Resp normal respiratory effort Cardio regular rate GI GI Narrative: Abdomen: Soft, nondistended, tender near incision's dressed clean dry and intact?binder in place, no peritoneal signs, GISELLA sanguinous Assessment & Plan Assessment/Plan (1) S/P hernia repair: PLAN: Primary repair with permanent sutures due to strangulated omentum 06/03/22 (2) Incarcerated ventral hernia: PLAN: X2 1 had strangulated omentum PLAN: Plan Okay for sips and chips until patient has flatus Encourage ambulation up in the chair We will start Lovenox today Odessa Guzman M.D. Pager: [phone] [facility] [address] [place] [address], [facility], [address] [place] [id number] Office: [phone]
[2022-06-04 07:00] LABS: Absolute Lymphocyte Count 1.37 X10^3/uL (0.83-4.51); Absolute Neutrophil Count 10.9 X10^3/uL (2.0-7.7); Basophil# 0.07 X10^3/uL; Basophil% 0.5 % (0-1); Eosinophil# 0.05 X10^3/uL; Eosinophils% 0.4 % (0-5); Hematocrit 36.4 % (40-54); Hemoglobin 11.7 g/dL (13.0-16.5); Lymphocyte # 1.37 X10^3/ul (0.83-4.51); Lymphocyte % 10.1 % (19-41); Mean Corp Hgb Conc 32.1 g/dL (32-36); Mean Corpuscular Hgb 30.3 pg (27.0-32.0); Mean Corpuscular Volume 94.3 fL (80-94); Mean Platelet Vol. 9.5 fl (6.2-12.0); Monocyte# 1.15 X10^3/uL; Monocyte% 8.5 % (0-10); NRBC Flagged by Analyzer 0 % (0-5); Neutrophil # 10.85 X10^3/uL (2.7-7.7); Neutrophil % 80.2 % (47-70); Platelet Count 218 K/mm3 (150-450); RBC Distribution Width CV 14.6 % (11.6-14.6); RBC Distribution Width SD 51.2 fl (35.1-43.9); Red Blood Count 3.86 M/mm3 (4.6-6.2); White Blood Count 13.5 K/mm3 (4.4-11.0)
[2022-06-04 07:05] LABS: Bedside Glucose 105 mg/dL (74-106)
[2022-06-04 07:30] VITALS: O2SAT 96
[2022-06-04 07:33] LABS: Anion Gap 3 (5-15); BUN 24 mg/dL (7-18); BUN/Creat Ratio 18.2 RATIO (10-20); Calcium,Total 8.6 mg/dL (8.5-10.1); Chloride 107 mmol/L (98-107); Creatinine, Serum 1.32 mg/dL (0.70-1.30); EST Glomerular Filtration Rate 58 mL/min (>60); Est Glom Filt Rate - Afr Amer 71 mL/min (>60); Estimated Creatinine Clearance 68.33 ml/min; Glucose 94 mg/dL (74-106); Potassium 3.7 mmol/L (3.5-5.1); Sodium Level 143 mmol/L (136-145)
[2022-06-04 08:40] VITALS: BP 133/58; PULSE 73; RESP 16; TEMP 37.4; O2SAT 97
[2022-06-04] MEDS: Fluoxetine HCl 40 MG CAPSULE PO (10:14)
[2022-06-04] MEDS: oxyCODONE 5 MG Tablet PO ×2 (10:22→21:01)
--- NOTE | 2022-06-04 11:30 | PN.HOSP_ITS ---
Documented by User: Hanna Quintanilla NP, INSTRUCTIONAL RESOURCE TEACHER-C 06/04/22 11:36 Subjective Subjective Patient seen and examined. Reports postoperative abdominal pain. States pain is improved from prior. Denies other symptoms or complaints. Objective Data Objective Data Vital Signs: Vital Signs Temp Pulse Resp BP Pulse Ox O2 Del Method O2 Flow Rate 99.4 F H 73 16 133/58 H 97 Nasal Cannula 2 06/04/22 08:40 06/04/22 08:40 06/04/22 08:40 06/04/22 08:40 06/04/22 08:40 06/04/22 09:08 06/04/22 08:40 Oxygen Flow Rate (L/min) [1] 6 Oxygen Flow Rate (L/min) [4] 6 Oxygen Flow Rate (L/min) [3] 6 Oxygen Flow Rate (L/min) [2] 6 Oxygen Flow Rate (L/min) 2 Oxygen Delivery Method [1] Nasal Cannula Oxygen Delivery Method [4] Nasal Cannula Oxygen Delivery Method [3] Nasal Cannula Oxygen Delivery Method [2] Nasal Cannula Oxygen Delivery Method Nasal Cannula Weight: 400 lb 12.806 oz Body Mass Index (BMI) 51.4 Intake & Output: Intake and Output for Last 24 Hours 06/02/22 06/03/22 06/04/22 23:59 23:59 23:59 Intake Total 1100 / 1100 915.00 / 915.00 Output Total 200 / 200 Balance 1100 / 1100 715.00 / 715.00 Lab / Micro Data Result Diagrams: 06/04/22 05:59 06/04/22 05:59 Labs: Laboratory Results - last 24 hr 06/03/22 10:50: TSH 2.04 06/03/22 10:50: Hemoglobin A1c 5.6 06/03/22 18:45: POC Glucose 142 H 06/03/22 22:23: POC Glucose 135 H 06/04/22 00:10: POC Glucose 122 H 06/04/22 05:59: WBC 13.5 H, RBC 3.86 L, Hgb 11.7 L, Hct 36.4 L, MCV 94.3 H, MCH 30.3, MCHC 32.1, RDW Std Deviation 51.2 H, RDW Coeff of Daniel 14.6, Plt Count 218, MPV 9.5, Immature Gran % (Auto) 0.300, Neut % (Auto) 80.2 H, Lymph % (Auto) 10.1 L, [place] % (Auto) 8.5, Eos % (Auto) 0.4, Baso % (Auto) 0.5, Absolute Neuts (auto) 10.9 H, Absolute Lymphs (auto) 1.37, Nucleated RBC % 0 06/04/22 05:59: Sodium 143, Potassium 3.7, Chloride 107, Carbon Dioxide 33.0 H, Anion Gap 3 L, BUN 24 H, Creatinine 1.32 H, Estim Creat Clear Calc 68.33, Est GFR (MDRD) Af Amer 71, Est GFR (MDRD) Non-Af 58 L, BUN/Creatinine Ratio 18.2, Glucose 94, Calcium 8.6 06/04/22 06:33: POC Glucose 105 Radiography Diagnostic Testing: Radiology Impression Abdomen/Pelvis CT 06/03/22 10:40 IMPRESSION: Large left paramedian hernia containing fat and nondilated small bowel loops. The neck of the hernia measures 4.8 cm. Multiple small gallstones. Electronically Signed: Romulo Schulz MD at 12:44 EDT , Abdomen CT 06/03/22 15:21 IMPRESSION: 1. Moderate left paraumbilical hernia with suspected low-grade/partial small bowel obstruction. 2. Cholelithiasis. 3. Lumbar canal stenosis. 4. Right renal cyst. Follow-up is not indicated per ACR guidelines. Electronically Signed: Kim Perez MD at 16:36 EDT Reading Location ID and State: [id number] / Tel , Service support , Chest X-Ray 06/03/22 16:26 IMPRESSION: Normal x-ray examination of the chest. Electronically Signed: Eris Enriquez DO at 0:23 EDT , Physical Exam Const alert, oriented x3 and no apparent distress Orientation / Consciousness: awake, oriented to person, oriented to place and oriented to time Nutritional Appearance: morbidly obese HEENT normocephalic and moist oral mucous membranes Eyes PERRL, EOMs intact bilaterally and conjunctivae normal Neck no lymphadenopathy Resp clear to auscultation bilaterally Auscultation: diminished lung sounds Cardio regular rate and no murmurs Cardio Narrative: A. fib Peripheral Pulses: pulses 2+ throughout GI normal to inspection, nondistended, normoactive bowel sounds, non-tender and non-distended Extremity normal to inspection Skin no rashes or lesions noted Skin Narrative: Postop sites intact. Chronic skin changes bilateral lower extremities. Lesions: no lesions Rashes: no rashes Trauma: no lacerations or abrasions Neuro CN's II-XII intact bilaterally, no focal motor deficits, no sensory deficits noted and deep tendon reflexes 2+ bilaterally Psych mental status grossly normal and affect normal Assessment & Plan Assessment/Plan (1) S/P hernia repair: PLAN: Plan 1.? Incarcerated ventral hernia- management per surgery.? Underwent repair of incarcerated ventral hernia x2 06/03/2022. Encouraged ambulation. IS. 2.? Renal insufficiency-mildly improved. Unclear baseline. Possible component of CKD. Trend BMP. 3. Paroxysmal atrial fibrillation-carvedilol held on admission due to mild bradycardia.? Rate improved. Patient is not on anticoagulation as he states his A. fib is not that bad.? [id number] score 2 based on hypertension and diabetes history.? Patient ideally should be on oral anticoagulation.? Will defer this to primary care following surgical intervention. 4. Hypertension-stable, carvedilol held. According to pharmacy, patient ran out of lisinopril and has not refilled. He has also not been taking his diuretic regimen. Monitor BP. 5. Depression-on fluoxetine. 6. Morbid obesity-diet and lifestyle modifications encouraged. 7. Type 2 diabetes [id number] with sliding scale insulin.? Hold oral regimen.? Hemoglobin A1c 5.6%. 8. Hyperlipidemia-continue statin. DVT prophylaxis-Lovenox subcu This patient was seen by JAMEY Hankins under the supervision of Dr. Reynoso. Documented by User: Dr. Leanna Reynoso DO 06/04/22 12:07 Subjective Subjective This patient was seen in conjunction with Hanna Quintanilla NP. The following represents my independent history and physical examination. Please see below for addendum the above. Patient reports that overall he is feeling better. Still having abdominal pain that is postsurgical in nature. No flatus but also no nausea or vomiting. Does feel better with binder in place. States he thinks he starting to feel better as he is starting to joke more and feel ornery. Objective Data Lab / Micro Data Result Diagrams: 06/04/22 05:59 06/04/22 05:59 Physical Exam Const alert, oriented x3, no apparent distress and well nourished Constitutional Narrative: Super morbidly obese white male lying on his back, appears comfortable, indicates he does not remember me from yesterday, nontoxic HEENT head/scalp atraumatic, moist oral mucous membranes and oropharynx normal HEENT Narrative: Mallampati 4, no thrush Resp normal respiratory effort, no retractions, no use of accessory muscles and clear to auscultation bilaterally Resp Narrative: Extremely distant secondary to body habitus Cardio regular rate, regular rhythm, S1 normal heart sound, S2 normal heart sound, no murmurs, no rub, no gallops, no clicks and no JVD GI GI Narrative: Bowel sounds with improved activity since yesterday, diffuse tenderness related to postoperative changes, midline dressing in place without any drainage noted, binder replaced after exam, GISELLA drain in place with serosanguineous fluid in bulb, no distention Extremity normal to inspection and no clubbing, cyanosis or edema Neuro CN's II-XII intact bilaterally, moves all extremities and no focal motor deficits Sensorium / Orientation: awake, alert, oriented to person, oriented to place and oriented to time Speech: speech normal Psych affect normal Psych Narrative: Patient much more interactive and jovial today Assessment & Plan Assessment/Plan (1) S/P hernia repair: PLAN: Plan Assessment: Incarcerated umbilical hernia Small bowel obstruction CHAO with a serum creatinine greater than 0.3 above baseline PAF Hypertension DM-2 Depression Super morbid obesity Plan: -Postop day 1 ex lap with repair of incarcerated ventral hernia x2 -Pain management per primary -N.p.o. with sips and chips until patient passes flatus -Ambulation encouraged -Continue IV fluids but will reduce rate to 75 cc/h -Continue to hold lisinopril and beta-wilfredo as pressures are normalized at this time -TSH within normal limits -Continue as needed hydralazine for systolic pressure greater than 160 -Supplemental oxygen per protocol--> would recommend nocturnal oxygen as patient is morbidly obese and I highly suspect he has obstructive sleep apnea -SSI with Accu-Cheks -Hemoglobin A1c 5.6 on admission indicating good control -Continue sliding scale -Repeat a.m. labs -Lovenox initiated today by general surgery Charges/Coding Visit Charges Inpatient E&M: 45580 Subs Hosp L2
[2022-06-04 13:51] LABS: Bedside Glucose 116 mg/dL (74-106)
[2022-06-04 14:40] VITALS: BP 111/52; PULSE 72; RESP 18; TEMP 37.7; O2SAT 95
--- NOTE | 2022-06-04 17:20 | CASEMGMT ---
MICHELLE NORMAN APPLICATION SUPPORT INTERN CM to room to meet with patient for initial transition planning/care coordination assessment. MICHELLE NORMAN introduced self and role at [facility].? Pt voices understanding and consents to assessment at this time.? Pt sitting up in chair in room in no distress at this time.? Pt is A/O at this time and answered some of the questions, but he did keep his eyes closed during most of the assessment. SonJose Juan, in room visiting. Pt agreeable to him being present during assessment and discussing his care. Jose Juan provided much of the following info.? Care providers, pharmacy, and demographics verified/updated at this time. PCP: Dr Melgoza Specialists: Denies Preferred [facility]acy: [facility] Insurance: MMO Prescription Benefit:? Yes Living Will/HPOA:? Does not think he has LW. SonJose Juan, thinks he is HPOA, but is not sure. LNOK: Jose Juan chapin Living Arrangements: Lives alone in one-story home w/no steps to enter. Independent w/ADL's and IADL's prior to hospitalization/surgery. Ubaldo live close. Jose Juan states pt does need some help w/feeding his 2 cats and w/home mgmt tasks, mostly cleaning. 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 Sons states he would like this and this was provided to him at this time. Transportation: Pt states drives self and states no transportation concerns at this time.? DME: ? States has the following DME:? BP machine, functioning glucometer w/supplies. ?Pt states no need for further DME at this time.? HHC/SNF: No hx of SNF or HHC. Pt denies need for HHC. Pt wishes to return home and states has no concerns with going home at time of discharge.? Son inquired about any dressing changes needed and inquired about the drain. Questions answered and made aware RN to provide eduction and instructions prior to discharge. Pt and son voice no further concerns/needs at this time. PLAN: ?Home w/family support and discharge plans in place. Coby OROURKE RN, CM
[2022-06-04] MEDS: Lactated Ringers 1,000 ML 70 ML IV (18:03)
[2022-06-04 18:25] LABS: Bedside Glucose 101 mg/dL (74-106)
[2022-06-04] MEDS: Atorvastatin Calcium 40 MG Tablet PO (21:01)
[2022-06-04 21:04] VITALS: BP 136/59; PULSE 80; RESP 18; TEMP 37.3; O2SAT 95
[2022-06-05] VITALS (8 sets, daily range): BP systolic 101–141; BP diastolic 43–70; PULSE 65–76; RESP 18; TEMP 36.6–36.9; O2SAT 93–95
[2022-06-05 00:56] LABS: Bedside Glucose 91 mg/dL (74-106)
[2022-06-05 06:22] LABS: Absolute Lymphocyte Count 1.66 X10^3/uL (0.83-4.51); Absolute Neutrophil Count 8.8 X10^3/uL (2.0-7.7); Basophil% 0.8 % (0-1); Eosinophil# 0.14 X10^3/uL; Eosinophils% 1.1 % (0-5); Hematocrit 36.3 % (40-54); Hemoglobin 11.9 g/dL (13.0-16.5); Lymphocyte # 1.66 X10^3/ul (0.83-4.51); Lymphocyte % 13.4 % (19-41); Mean Corp Hgb Conc 32.8 g/dL (32-36); Mean Corpuscular Hgb 30.7 pg (27.0-32.0); Mean Corpuscular Volume 93.6 fL (80-94); Mean Platelet Vol. 9.5 fl (6.2-12.0); Monocyte# 1.61 X10^3/uL; NRBC Flagged by Analyzer 0 % (0-5); Neutrophil # 8.83 X10^3/uL (2.7-7.7); Neutrophil % 71.4 % (47-70); POSITIVE DIFFERENTIAL YES; Platelet Count 199 K/mm3 (150-450); RBC Distribution Width CV 14.6 % (11.6-14.6); RBC Distribution Width SD 50.9 fl (35.1-43.9); Red Blood Count 3.88 M/mm3 (4.6-6.2); White Blood Count 12.4 K/mm3 (4.4-11.0)
[2022-06-05 06:43] LABS: Differential Indicated SCAN CRITERIA MET
[2022-06-05] MEDS: Enoxaparin 40 MG/0.4 ML Syringe SC (06:49)
[2022-06-05 06:50] LABS: Anion Gap 4 (5-15); BUN 28 mg/dL (7-18); BUN/Creat Ratio 18.7 RATIO (10-20); Calcium,Total 8.7 mg/dL (8.5-10.1); Chloride 105 mmol/L (98-107); EST Glomerular Filtration Rate 50 mL/min (>60); Est Glom Filt Rate - Afr Amer 61 mL/min (>60); Estimated Creatinine Clearance 60.13 ml/min; Glucose 82 mg/dL (74-106); Potassium 3.6 mmol/L (3.5-5.1); Sodium Level 139 mmol/L (136-145)
[2022-06-05 06:51] LABS: Bedside Glucose 76 mg/dL (74-106)
--- NOTE | 2022-06-05 07:13 | PN.SURG_ITS ---
Subjective Subjective Patient tolerating sips of clears would like more to drink. Patient denies any flatus. Patient does have some abdominal pain at incision. Objective Data Objective Data Vital Signs: Vital Signs Temp Pulse Resp BP Pulse Ox O2 Del Method O2 Flow Rate 98.2 F 65 18 101/49 L 94 Nasal Cannula 1 06/05/22 06:40 06/05/22 06:40 06/05/22 06:40 06/05/22 06:40 06/05/22 06:40 06/05/22 06:40 06/05/22 06:40 Oxygen Flow Rate (L/min) [1] 6 Oxygen Flow Rate (L/min) [4] 6 Oxygen Flow Rate (L/min) [3] 6 Oxygen Flow Rate (L/min) [2] 6 Oxygen Flow Rate (L/min) 1 Oxygen Delivery Method [1] Nasal Cannula Oxygen Delivery Method [4] Nasal Cannula Oxygen Delivery Method [3] Nasal Cannula Oxygen Delivery Method [2] Nasal Cannula Oxygen Delivery Method Nasal Cannula Weight: 400 lb 12.806 oz Body Mass Index (BMI) 51.4 Intake & Output: Intake and Output for Last 24 Hours 06/03/22 06/04/22 06/05/22 23:59 23:59 23:59 Intake Total 1100 / 1100 2073.00 / 2073.00 Output Total 730 / 730 Balance 1100 / 1100 1343.00 / 1343.00 - / 20 Lab / Micro Data Result Diagrams: 06/05/22 05:33 06/05/22 05:33 Labs: Laboratory Results - last 24 hr 06/04/22 05:59: Sodium 143, Potassium 3.7, Chloride 107, Carbon Dioxide 33.0 H, Anion Gap 3 L, BUN 24 H, Creatinine 1.32 H, Estim Creat Clear Calc 68.33, Est GFR (MDRD) Af Amer 71, Est GFR (MDRD) Non-Af 58 L, BUN/Creatinine Ratio 18.2, Glucose 94, Calcium 8.6 06/04/22 13:28: POC Glucose 116 H 06/04/22 18:02: POC Glucose 101 06/05/22 00:31: POC Glucose 91 06/05/22 05:33: WBC 12.4 H, RBC 3.88 L, Hgb 11.9 L, Hct 36.3 L, MCV 93.6, MCH 30.7, MCHC 32.8, RDW Std Deviation 50.9 H, RDW Coeff of Daniel 14.6, Plt Count 199, MPV 9.5, Immature Gran % (Auto) 0.300, Neut % (Auto) 71.4 H, Lymph % (Auto) 13.4 L, [place] % (Auto) 13.0 H, Eos % (Auto) 1.1, Baso % (Auto) 0.8, Absolute Neuts (auto) 8.8 H, Absolute Lymphs (auto) 1.66, Nucleated RBC % 0 06/05/22 05:33: Sodium 139, Potassium 3.6, Chloride 105, Carbon Dioxide 30.0, Anion Gap 4 L, BUN 28 H, Creatinine 1.50 H, Estim Creat Clear Calc 60.13, Est GFR (MDRD) Af Amer 61, Est GFR (MDRD) Non-Af 50 L, BUN/Creatinine Ratio 18.7, Glucose 82, Calcium 8.7 06/05/22 06:31: POC Glucose 76 Physical Exam Resp normal respiratory effort Cardio regular rate GI GI Narrative: Abdomen: Soft, nondistended, tender near incision's dressed clean dry and intact with [place], no peritoneal signs, GISELLA sanguinous Assessment & Plan Assessment/Plan (1) S/P hernia repair: PLAN: Primary repair with permanent sutures due to strangulated omentum 06/03/22 (2) Incarcerated ventral hernia: PLAN: X2 1 had strangulated omentum PLAN: Plan Will advance to [facility] await flatus Continue ambulation and up in the chair Patient will go home with GISELLA. Odessa Guzman M.D. Pager: [phone] [facility] [address] [place] [address], [facility], [address] [place] [address] Office: [phone]
--- NOTE | 2022-06-05 07:14 | DCINST_ITS ---
Discharge Instructions Diet Discharge Diet: Light diet - advance as tolerated Activity Discharge Activity: May Not Drive (while taking narcotic pain medications.) and May Shower Return to work on:: 07/04/22 (Patient will also have follow-up to determine if this is the correct date will probably be at least 4 weeks) Lifting Restrictions: no lifting >20 lbs x 2 wks, no strenuous exercise for 4 wks Additional Activity Instructions:: Wear abdominal binder for comfort only; track GISELLA output and bring to follow-up appointment Dressing / Incision Call your doctor if your incision/area has: Continuous Slow Oozing, Sudden Increased Bleeding, Increased Pain/ Swelling, Increased Redness, Foul Smelling Discharge and Swelling at the incision site Call your doctor if you observe: Fever of 101 or Higher Remove Dressing in: 2 days Cleanse incision/area with: Soap & Water Additional Dressing/Incision Instructions:: Steri-Strips will fall off in 7 to 10 days, if they do not fall off okay to remove after 10 days. Follow Up Care Please Follow Up With: Odessa Guzman MD When: Call the office for a follow-up appointment early next week; after 5 PM and on the weekends call [phone] with any concerns. Test Results: Test results from this visit will be discussed in further detail at your follow- up appointment, if applicable. Discharge Plan Admission Admit Date/Time: 06/03/22 21:51 Attending Provider: Odessa Guzman Primary Care Provider: Wale Melgoza Instructions Additional Instructions / Restrictions: Okay to take ibuprofen 400-600 mg PO q6hr PRN along with the Percocet. Avoid Tylenol since there is already Tylenol in the Percocet. Take all pain meds with food. Percocet can cause constipation recommend taking daily stool softener (i.e. Colace/docusate) while taking the pain meds. Discharge Orders/Prescriptions Prescriptions: New oxycodone-acetaminophen 5-325 mg tablet 1 - 2 tab PO Q6H PRN (Reason: pain) 3 Days Qty: 14 0RF No Action fluoxetine 40 mg Capsule 40 mg PO DAILY metolazone 2.5 mg Tablet 2.5 mg PO DAILY carvedilol [Coreg] 25 mg Tablet 25 mg PO BID potassium chloride 10 mEq Tablet Extended Release 10 meq PO DAILY spironolactone 25 mg Tablet 25 mg PO DAILY PRN PRN (Reason: fluid) torsemide 100 mg Tablet 100 mg PO DAILY glyburide-metformin 5-500 mg Tablet 1 tab PO BID diltiazem HCl [Cartia XT] 120 mg capsule,extended release 24hr 120 mg PO DAILY lisinopril 40 mg Tablet 40 mg PO DAILY Referrals / Follow Up: Wale Melgoza MD [Primary Care Provider] - Disposition Disposition (needs filled in before D/C Order can be placed): Home, Self Care
[2022-06-05] MEDS: Lactated Ringers 1,000 ML 999 ML IV (08:26)
[2022-06-05] MEDS: Fluoxetine HCl 40 MG CAPSULE PO (11:09)
[2022-06-05] MEDS: Lactated Ringers 1,000 ML 70 ML IV (11:09)
--- NOTE | 2022-06-05 11:53 | PN.HOSP_ITS ---
Documented by User: Hanna Quintanilla NP, DIRECTOR OF [employer]ES-C 06/05/22 12:03 Subjective Subjective Patient seen and examined. Resting in chair. Reports abdominal pain is improved. Denies other symptoms or complaints. Objective Data Objective Data Vital Signs: Vital Signs Temp Pulse Resp BP Pulse Ox O2 Del Method O2 Flow Rate 98.2 F 70 18 101/49 L 95 Nasal Cannula 1 06/05/22 06:40 06/05/22 10:00 06/05/22 10:00 06/05/22 06:40 06/05/22 10:00 06/05/22 10:00 06/05/22 10:00 Oxygen Flow Rate (L/min) [1] 6 Oxygen Flow Rate (L/min) [4] 6 Oxygen Flow Rate (L/min) [3] 6 Oxygen Flow Rate (L/min) [2] 6 Oxygen Flow Rate (L/min) 1 Oxygen Delivery Method [1] Nasal Cannula Oxygen Delivery Method [4] Nasal Cannula Oxygen Delivery Method [3] Nasal Cannula Oxygen Delivery Method [2] Nasal Cannula Oxygen Delivery Method Nasal Cannula Weight: 400 lb 12.806 oz Body Mass Index (BMI) 51.4 Intake & Output: Intake and Output for Last 24 Hours 06/03/22 06/04/22 06/05/22 23:59 23:59 23:59 Intake Total 1100 / 1100 2073.00 / 2073.00 1999 Output Total 730 / 730 Balance 1100 / 1100 1343.00 / 1343.00 1979 Lab / Micro Data Result Diagrams: 06/05/22 05:33 06/05/22 05:33 Labs: Laboratory Results - last 24 hr 06/04/22 13:28: POC Glucose 116 H 06/04/22 18:02: POC Glucose 101 06/05/22 00:31: POC Glucose 91 06/05/22 05:33: WBC 12.4 H, RBC 3.88 L, Hgb 11.9 L, Hct 36.3 L, MCV 93.6, MCH 30.7, MCHC 32.8, RDW Std Deviation 50.9 H, RDW Coeff of Daniel 14.6, Plt Count 199, MPV 9.5, Immature Gran % (Auto) 0.300, Neut % (Auto) 71.4 H, Lymph % (Auto) 13.4 L, [place] % (Auto) 13.0 H, Eos % (Auto) 1.1, Baso % (Auto) 0.8, Absolute Neuts (auto) 8.8 H, Absolute Lymphs (auto) 1.66, Nucleated RBC % 0, Diff Path Review March06/05/22 05:33: Sodium 139, Potassium 3.6, Chloride 105, Carbon Dioxide 30.0, Anion Gap 4 L, BUN 28 H, Creatinine 1.50 H, Estim Creat Clear Calc 60.13, Est GFR (MDRD) Af Amer 61, Est GFR (MDRD) Non-Af 50 L, BUN/Creatinine Ratio 18.7, Glucose 82, Calcium 8.7 06/05/22 06:31: POC Glucose 76 Physical Exam Const alert, oriented x3 and no apparent distress Orientation / Consciousness: awake, oriented to person, oriented to place and oriented to time Nutritional Appearance: obese HEENT normocephalic and moist oral mucous membranes Eyes PERRL, EOMs intact bilaterally and conjunctivae normal Neck no lymphadenopathy Resp normal respiratory effort and clear to auscultation bilaterally Cardio regular rate and no murmurs Cardio Narrative: a.fib Peripheral Pulses: pulses 2+ throughout GI normal to inspection, nondistended, normoactive bowel sounds, non-tender and non-distended Extremity normal to inspection Skin no rashes or lesions noted Skin Narrative: Chronic skin changes bilateral lower extremities. Lesions: no lesions Rashes: no rashes Trauma: no lacerations or abrasions Neuro CN's II-XII intact bilaterally, no focal motor deficits, no sensory deficits noted and deep tendon reflexes 2+ bilaterally Psych mental status grossly normal and affect normal Assessment & Plan Assessment/Plan (1) S/P hernia repair: PLAN: Plan 1.? Incarcerated ventral hernia- management per surgery.? Underwent repair of incarcerated ventral hernia x2 06/03/2022.? Encouraged ambulation. IS. 2.? Renal insufficiency- Unclear baseline.? Possible component of CKD.? Trend BMP. Based on trend, likely CKD stage IIIa. 3. Paroxysmal atrial fibrillation-carvedilol held on admission due to mild bradycardia.? Rate improved.? Patient is not on anticoagulation as he states his A. fib is not that bad.? [id number] score 2 based on hypertension and diabetes history.? Patient ideally should be on oral anticoagulation.? Will defer this to primary care following surgical intervention. 4. Hypertension-stable, carvedilol held.? According to pharmacy, patient ran out of lisinopril and has not refilled.? He has also not been taking his diuretic regimen.? Monitor BP. 5. Depression-on fluoxetine. 6. Morbid obesity-diet and lifestyle modifications encouraged. 7. Type 2 diabetes [id number] with sliding scale insulin.? Hold oral regimen.? Hemoglobin A1c 5.6%. 8.? Hyperlipidemia-continue statin. DVT prophylaxis-Lovenox subcu This patient was seen by Hanna Quintanilla NP-C under the supervision of Dr. Reynoso. Documented by User: Dr. Leanna Reynoso DO 06/05/22 12:15 Subjective Subjective This patient was seen in conjunction with Hanna Quintanilla NP. The following represents my independent history and physical examination. Please see below fo r addendum above. Patient reports that he is feeling okay. Still no flatus. Seems a bit fatigued but recently had pain medication. Drain was pulled this morning. Objective Data Lab / Micro Data Result Diagrams: 06/05/22 05:33 06/05/22 05:33 Physical Exam Const Constitutional Narrative: Super morbidly obese white male sitting up in a chair at the bedside, appears comfortable, dozing off intermittently, nontoxic HEENT head/scalp atraumatic HEENT Narrative: Mallampati is 3-4, no thrush Resp no retractions and no use of accessory muscles Resp Narrative: Extremely distant secondary to body habitus Auscultation: diminished lung sounds; Negative for crackles, rales, rhonchi or wheezes Cardio regular rate, S1 normal heart sound, S2 normal heart sound, no murmurs, no rub, no gallops, no clicks and no JVD Cardio Narrative: Irregular irregular rhythm with normal rate GI GI Narrative: Bowel sounds are hypoactive, mild diffuse tenderness, no distention Palpation: tender Extremity no clubbing, cyanosis or edema Neuro oriented x3 and moves all extremities Speech: speech normal Assessment & Plan Assessment/Plan (1) S/P hernia repair: PLAN: Plan Assessment: Incarcerated umbilical hernia Small bowel obstruction CHAO with a serum creatinine greater than 0.3 above baseline PAF Hypertension DM-2 Depression Super morbid obesity Plan: -Postop day 2 ex lap with repair of incarcerated ventral hernia x2 -Pain management per primary -Blood pressure was down a little bit this morning so 1 L bolus was given with improvement -N.p.o. with sips and chips until patient passes flatus -Ambulation encouraged -Continue continuous IV fluids -Continue to hold lisinopril and beta-wilfredo as pressures not elevated -May be able to resume and restart antihypertensives but the patient's pressure does drop significantly with pain medication -TSH within normal limits -Continue as needed hydralazine for systolic pressure greater than 160 -SSI with Accu-Cheks -Hemoglobin A1c 5.6 on admission indicating good control -Continue sliding scale -Repeat a.m. labs -Lovenox initiated today by general surgery
[2022-06-05 13:50] LABS: Bedside Glucose 107 mg/dL (74-106)
[2022-06-05] MEDS: oxyCODONE 5 MG Tablet PO ×2 (16:15→21:44)
[2022-06-05 19:11] LABS: Bedside Glucose 102 mg/dL (74-106)
[2022-06-05] MEDS: Atorvastatin Calcium 40 MG Tablet PO (21:43)
[2022-06-05 22:05] LABS: Bedside Glucose 110 mg/dL (74-106)
[2022-06-06] MEDS: Lactated Ringers 1,000 ML 70 ML IV (01:26)
[2022-06-06 02:20] VITALS: BP 118/52; PULSE 72; RESP 16; TEMP 36.6; O2SAT 95
[2022-06-06] MEDS: Enoxaparin 40 MG/0.4 ML Syringe SC (06:16)
[2022-06-06 06:24] LABS: Absolute Lymphocyte Count 1.38 X10^3/uL (0.83-4.51); Absolute Neutrophil Count 9.4 X10^3/uL (2.0-7.7); Basophil# 0.06 X10^3/uL; Basophil% 0.5 % (0-1); Eosinophil# 0.29 X10^3/uL; Eosinophils% 2.3 % (0-5); Hematocrit 37.3 % (40-54); Lymphocyte # 1.38 X10^3/ul (0.83-4.51); Mean Corp Hgb Conc 32.2 g/dL (32-36); Mean Corpuscular Hgb 29.9 pg (27.0-32.0); Mean Platelet Vol. 9.6 fl (6.2-12.0); Monocyte# 1.34 X10^3/uL; Monocyte% 10.7 % (0-10); NRBC Flagged by Analyzer 0 % (0-5); Neutrophil # 9.41 X10^3/uL (2.7-7.7); Platelet Count 198 K/mm3 (150-450); RBC Distribution Width SD 47.9 fl (35.1-43.9); Red Blood Count 4.01 M/mm3 (4.6-6.2); White Blood Count 12.5 K/mm3 (4.4-11.0)
[2022-06-06 06:54] LABS: Anion Gap 8 (5-15); BUN 30 mg/dL (7-18); BUN/Creat Ratio 22.1 RATIO (10-20); Calcium,Total 8.6 mg/dL (8.5-10.1); Chloride 99 mmol/L (98-107); Creatinine, Serum 1.36 mg/dL (0.70-1.30); EST Glomerular Filtration Rate 57 mL/min (>60); Est Glom Filt Rate - Afr Amer 68 mL/min (>60); Estimated Creatinine Clearance 66.32 ml/min; Glucose 90 mg/dL (74-106); Potassium 3.5 mmol/L (3.5-5.1); Sodium Level 135 mmol/L (136-145)
[2022-06-06 07:05] LABS: Bedside Glucose 101 mg/dL (74-106)
[2022-06-06 08:04] VITALS: BP 125/49; PULSE 68; RESP 18; TEMP 36.6; O2SAT 100
[2022-06-06] MEDS: Fluoxetine HCl 40 MG CAPSULE PO (08:18)
[2022-06-06] MEDS: oxyCODONE 5 MG Tablet PO ×2 (08:18→14:52)
--- NOTE | 2022-06-06 09:09 | PCM.PN.SRG ---
Subjective Subjective Patient is a 61 y/o M s/p exploratory laparotomy, repair of incarcerated ventral hernia x2. Patient continues to note discomfort in his abdomen. He notes the binder is helpful. He states he is unsteady on his feet. He lives at home alone however he notes his sons were arranging to assist with his recovery at home. Patient denies nausea, vomiting. He notes passing small amounts of flatus overnight. He has been urinating well. Objective Data Objective Data Vital Signs: Vital Signs Temp Pulse Resp BP Pulse Ox O2 Del Method O2 Flow Rate 97.8 F 68 18 125/49 H 100 Room Air 2 06/06/22 08:04 06/06/22 08:04 06/06/22 08:04 06/06/22 08:04 06/06/22 08:04 06/06/22 09:00 06/06/22 02:20 Oxygen Flow Rate (L/min) [1] 6 Oxygen Flow Rate (L/min) [4] 6 Oxygen Flow Rate (L/min) [3] 6 Oxygen Flow Rate (L/min) [2] 6 Oxygen Flow Rate (L/min) 2 Oxygen Delivery Method [1] Nasal Cannula Oxygen Delivery Method [4] Nasal Cannula Oxygen Delivery Method [3] Nasal Cannula Oxygen Delivery Method [2] Nasal Cannula Oxygen Delivery Method Room Air Weight: 400 lb 12.806 oz Body Mass Index (BMI) 51.4 Intake & Output: Intake and Output for Last 24 Hours 06/04/22 06/05/22 06/06/22 23:59 23:59 23:59 Intake Total 2073.00 / 2073.00 2860 / 2860 999.83 / 999.83 Output Total 730 / 730 785 / 1090 805 / 805 Balance 1343.00 / 1343.00 2075 / 1770 194.83 / 194.83 Lab / Micro Data Result Diagrams: 06/06/22 05:40 06/06/22 05:40 Labs: Laboratory Results - last 24 hr 06/05/22 13:31: POC Glucose 107 H 06/05/22 17:37: POC Glucose 102 06/05/22 21:42: POC Glucose 110 H 06/06/22 05:40: WBC 12.5 H, RBC 4.01 L, Hgb 12.0 L, Hct 37.3 L, MCV 93.0, MCH 29.9, MCHC 32.2, RDW Std Deviation 47.9 H, RDW Coeff of Daniel 14.0, Plt Count 198, MPV 9.6, Immature Gran % (Auto) 0.500, Neut % (Auto) 75.0 H, Lymph % (Auto) 11.0 L, [place] % (Auto) 10.7 H, Eos % (Auto) 2.3, Baso % (Auto) 0.5, Absolute Neuts (auto) 9.4 H, Absolute Lymphs (auto) 1.38, Nucleated RBC % 0 06/06/22 05:40: Sodium 135 L, Potassium 3.5, Chloride 99, Carbon Dioxide 28.0, Anion Gap 8, BUN 30 H, Creatinine 1.36 H, Estim Creat Clear Calc 66.32, Est GFR (MDRD) Af Amer 68, Est GFR (MDRD) Non-Af 57 L, BUN/Creatinine Ratio 22.1 H, Glucose 90, Calcium 8.6 06/06/22 06:20: POC Glucose 101 Physical Exam Const alert, oriented x3 and no apparent distress GI GI Narrative: Abdomen- Midline incision c/d/i. Javan intact. GISELLA drain with serosanguineous fluid. Inspection: central obesity Auscultation: normoactive bowel sounds Palpation: soft and tender other (generalized) Assessment & Plan Assessment/Plan (1) S/P hernia repair: PLAN: I am following this patient in conjunction with Dr. Guzman WBC count continues to be elevated. Order labs for tomorrow morning. Patient feels unsteady with walking Discussed possible discharge today with patient, he is unsure that he feels ready to be discharged today. He would feel more comfortable once he has a family plan in place with his sons, as he lives alone. Continue clear liquids at this time. May advance diet later today. Encourage incentive spirometer and ambulation We will continue to monitor this patient Probable discharge tomorrow Charges/Coding Visit Charges Inpatient E&M: 74983 Subs Hosp L1 (post-op; no charge)
[2022-06-06 11:45] LABS: Bedside Glucose 95 mg/dL (74-106)
[2022-06-06 12:08] LABS: Pathologist Review Reviewed
[2022-06-06 14:48] VITALS: BP 145/50; PULSE 72; RESP 18; TEMP 37.3; O2SAT 96
[2022-06-06] MEDS: 0.9% Saline Lock 10 ML Syringe IV (14:53)
[2022-06-06 17:05] LABS: Bedside Glucose 107 mg/dL (74-106)
[2022-06-06 19:03] VITALS: BP 125/41; PULSE 69; RESP 18; TEMP 37.5; O2SAT 94
[2022-06-06 20:17] VITALS: BP 144/53; PULSE 86; RESP 15; TEMP 37.3; O2SAT 93
[2022-06-06] MEDS: Atorvastatin Calcium 40 MG Tablet PO (21:52)
[2022-06-06 22:15] LABS: Bedside Glucose 135 mg/dL (74-106)
[2022-06-07] MEDS: oxyCODONE 5 MG Tablet PO ×3 (01:17→13:56)
[2022-06-07 02:20] VITALS: BP 125/58; PULSE 74; RESP 14; TEMP 36.5; O2SAT 92
[2022-06-07 06:36] LABS: Absolute Lymphocyte Count 1.43 X10^3/uL (0.83-4.51); Absolute Neutrophil Count 8.8 X10^3/uL (2.0-7.7); Basophil# 0.05 X10^3/uL; Basophil% 0.4 % (0-1); Eosinophil# 0.27 X10^3/uL; Eosinophils% 2.3 % (0-5); Hematocrit 34.1 % (40-54); Hemoglobin 11.5 g/dL (13.0-16.5); Lymphocyte # 1.43 X10^3/ul (0.83-4.51); Lymphocyte % 11.9 % (19-41); Mean Corp Hgb Conc 33.7 g/dL (32-36); Mean Corpuscular Hgb 30.9 pg (27.0-32.0); Mean Corpuscular Volume 91.7 fL (80-94); Mean Platelet Vol. 9.8 fl (6.2-12.0); Monocyte# 1.32 X10^3/uL; NRBC Flagged by Analyzer 0 % (0-5); Neutrophil # 8.83 X10^3/uL (2.7-7.7); Neutrophil % 73.8 % (47-70); Platelet Count 203 K/mm3 (150-450); RBC Distribution Width CV 13.7 % (11.6-14.6); RBC Distribution Width SD 46.4 fl (35.1-43.9); Red Blood Count 3.72 M/mm3 (4.6-6.2)
[2022-06-07] MEDS: Enoxaparin 40 MG/0.4 ML Syringe SC (06:46)
[2022-06-07 07:04] LABS: Anion Gap 5 (5-15); BUN 30 mg/dL (7-18); BUN/Creat Ratio 21.7 RATIO (10-20); Calcium,Total 8.5 mg/dL (8.5-10.1); Chloride 98 mmol/L (98-107); Creatinine, Serum 1.38 mg/dL (0.70-1.30); EST Glomerular Filtration Rate 56 mL/min (>60); Est Glom Filt Rate - Afr Amer 67 mL/min (>60); Estimated Creatinine Clearance 65.36 ml/min; Glucose 105 mg/dL (74-106); Potassium 3.5 mmol/L (3.5-5.1); Sodium Level 134 mmol/L (136-145)
[2022-06-07 07:11] LABS: Bedside Glucose 120 mg/dL (74-106)
--- NOTE | 2022-06-07 07:33 | PCM.PN.SRG ---
Subjective Subjective Patient tolerated fullness yesterday did did not really take regular as patient stated not like the food. Patient states he not get up and walk much yesterday due to pain however today he states it is better. Objective Data Objective Data Vital Signs: Vital Signs Temp Pulse Resp BP Pulse Ox O2 Del Method O2 Flow Rate 97.7 F L 74 14 125/58 H 92 Room Air 2 06/07/22 02:20 06/07/22 02:20 06/07/22 02:20 06/07/22 02:20 06/07/22 02:20 06/07/22 02:20 06/06/22 02:20 Oxygen Flow Rate (L/min) [1] 6 Oxygen Flow Rate (L/min) [4] 6 Oxygen Flow Rate (L/min) [3] 6 Oxygen Flow Rate (L/min) [2] 6 Oxygen Flow Rate (L/min) 2 Oxygen Delivery Method [1] Nasal Cannula Oxygen Delivery Method [4] Nasal Cannula Oxygen Delivery Method [3] Nasal Cannula Oxygen Delivery Method [2] Nasal Cannula Oxygen Delivery Method Room Air Weight: 400 lb 12.806 oz Body Mass Index (BMI) 51.4 Intake & Output: Intake and Output for Last 24 Hours 06/05/22 06/06/22 06/07/22 23:59 23:59 23:59 Intake Total 2860 / 2860 2771.16 / 3211.16 540 / 540 Output Total 785 / 1090 1055 / 1555 615 / 615 Balance 2075 / 1770 1716.16 / 1656.16 -75 / -75 Lab / Micro Data Result Diagrams: 06/07/22 05:30 06/07/22 05:30 Labs: Laboratory Results - last 24 hr 06/05/22 05:33: Diff Path Review Reviewed 06/06/22 11:26: POC Glucose 95 06/06/22 16:44: POC Glucose 107 H 06/06/22 21:51: POC Glucose 135 H 06/07/22 05:30: WBC 12.0 H, RBC 3.72 L, Hgb 11.5 L, Hct 34.1 L, MCV 91.7, MCH 30.9, MCHC 33.7, RDW Std Deviation 46.4 H, RDW Coeff of Daniel 13.7, Plt Count 203, MPV 9.8, Immature Gran % (Auto) 0.600, Neut % (Auto) 73.8 H, Lymph % (Auto) 11.9 L, [place] % (Auto) 11.0 H, Eos % (Auto) 2.3, Baso % (Auto) 0.4, Absolute Neuts (auto) 8.8 H, Absolute Lymphs (auto) 1.43, Nucleated RBC % 0 06/07/22 05:30: Sodium 134 L, Potassium 3.5, Chloride 98, Carbon Dioxide 31.0, Anion Gap 5, BUN 30 H, Creatinine 1.38 H, Estim Creat Clear Calc 65.36, Est GFR (MDRD) Af Amer 67, Est GFR (MDRD) Non-Af 56 L, BUN/Creatinine Ratio 21.7 H, Glucose 105, Calcium 8.5 06/07/22 06:44: POC Glucose 120 H Physical Exam Resp normal respiratory effort Cardio regular rate GI GI Narrative: Abdomen: Soft, nondistended, tender near incision's dressed clean dry and intact with quinton, no peritoneal signs, serosanguineous GISELLA Assessment & Plan Assessment/Plan (1) S/P hernia repair: PLAN: Primary repair with permanent sutures due to strangulated omentum 06/03/22 (2) Incarcerated ventral hernia: PLAN: X2 1 had strangulated omentum PLAN: Plan Patient is currently on clears still having flatus. Likely DC home today. Encourage ambulation. Discussed with patient that if he is having pain he does take some pain meds in order to get up and ambulate as well as use IS. Odessa Guzman M.D. Pager: [phone] [facility] [address] [place] [address], [facility], [address] [place] [address] Office: [phone]
[2022-06-07 08:40] VITALS: O2SAT 92
[2022-06-07 09:50] VITALS: BP 130/51; PULSE 72; RESP 18; TEMP 36.9; O2SAT 92
[2022-06-07] MEDS: Fluoxetine HCl 40 MG CAPSULE PO (09:58)
[2022-06-07 11:55] LABS: Bedside Glucose 139 mg/dL (74-106)
--- NOTE | 2022-06-07 12:27 | PCM.DC.SUM ---
Providers Date of Admission: 06/03/22 Date of Discharge: 06/07/22 Primary Care Physician: Dr. Wale Melgoza MD Reason For Visit: HERNIA Diagnosis Discharge Diagnosis (1) S/P hernia repair: Status: Acute Code(s): Z98.890 - Other specified postprocedural states; Z87.19 - Personal history of other diseases of the digestive system Plan: Primary repair with permanent sutures due to strangulated omentum 06/03/22 (2) Incarcerated ventral hernia: Status: Acute Code(s): K43.6 - Other and unspecified ventral hernia with obstruction, without gangrene Plan: X2 1 had strangulated omentum Plan Patient is currently on clears still having flatus. Likely DC home today. Encourage ambulation. Discussed with patient that if he is having pain he does take some pain meds in order to get up and ambulate as well as use IS. Odessa Guzman M.D. Pager: [phone] [facility] [address] [place] [address], [facility], [address] [place] [id number] Office: [phone] Medications at Discharge Home Medications carvedilol 25 mg tablet (Coreg) 25 mg PO BID 07/06/21 diltiazem HCl 120 mg capsule,extended release 24 hr (Cartia XT) 120 mg PO DAILY 07/06/21 fluoxetine 40 mg capsule 40 mg PO DAILY 07/06/21 glyburide 5 mg-metformin 500 mg tablet 1 tab PO BID 07/06/21 lisinopril 40 mg tablet 40 mg PO DAILY 07/06/21 metolazone 2.5 mg tablet 2.5 mg PO DAILY 07/06/21 potassium chloride 10 mEq tablet,extended release 10 meq PO DAILY 07/06/21 spironolactone 25 mg tablet 25 mg PO DAILY PRN PRN fluid 07/06/21 torsemide 100 mg tablet 100 mg PO DAILY 07/06/21 oxycodone-acetaminophen 5 mg-325 mg tablet 1 - 2 tab PO Q6H PRN pain 3 days #14 tabs 06/05/22 Hospital Course Operations herniorrhaphy (Incarcerated ventral hernia repair with permanent suture) Procedures None Summary of Care Provided Minutes Spent on Discharge: 15 Hospital Course: Patient came to the ER due to mid abdominal pain due to incarcerated ventral hernias. Patient underwent ventral hernia repair with permanent suture no mesh as patient did have some strangulated omentum but the small bowel was viable. Postoperatively patient was able to tolerate diet once he regained bowel function. On discharge patient was tolerating diet passing flatus and ambulating. Patient states he does not take his diuretics daily and only takes them as needed. We will have patient follow-up with his PCP to discuss medication. Physical Exam HEENT normocephalic Resp normal respiratory effort Cardio regular rate GI GI Narrative: Abdomen: Soft, nondistended, tender near incision's dressed clean dry and intact with quinton, no peritoneal signs, serosanguineous GISELLA Weight / BMI Weight Weight: 400 lb 12.806 oz Body Mass Index (BMI) 51.4 ABG / Lab / Microbiology Data Result Diagrams: 06/07/22 05:30 06/07/22 05:30 Laboratory: Laboratory Results - last 24 hr 06/06/22 16:44: POC Glucose 107 H 06/06/22 21:51: POC Glucose 135 H 06/07/22 05:30: WBC 12.0 H, RBC 3.72 L, Hgb 11.5 L, Hct 34.1 L, MCV 91.7, MCH 30.9, MCHC 33.7, RDW Std Deviation 46.4 H, RDW Coeff of Daniel 13.7, Plt Count 203, MPV 9.8, Immature Gran % (Auto) 0.600, Neut % (Auto) 73.8 H, Lymph % (Auto) 11.9 L, [place] % (Auto) 11.0 H, Eos % (Auto) 2.3, Baso % (Auto) 0.4, Absolute Neuts (auto) 8.8 H, Absolute Lymphs (auto) 1.43, Nucleated RBC % 0 06/07/22 05:30: Sodium 134 L, Potassium 3.5, Chloride 98, Carbon Dioxide 31.0, Anion Gap 5, BUN 30 H, Creatinine 1.38 H, Estim Creat Clear Calc 65.36, Est GFR (MDRD) Af Amer 67, Est GFR (MDRD) Non-Af 56 L, BUN/Creatinine Ratio 21.7 H, Glucose 105, Calcium 8.5 06/07/22 06:44: POC Glucose 120 H 06/07/22 11:35: POC Glucose 139 H D/C Instructions Discharge Diet: Light diet - advance as tolerated Return to work on: 07/04/22 (Patient will also have follow-up to determine if this is the correct date will probably be at least 4 weeks) May shower in (days): 1 Additional Activity Instructions: Wear abdominal binder for comfort only; track GISELLA output and bring to follow-up appointment Call your doctor if your incision/area has: Continuous Slow Oozing, Sudden Increased Bleeding, Increased Pain/ Swelling, Increased Redness, Foul Smelling Discharge and Swelling at the incision site Call your doctor if you observe: Fever of 101 or Higher Cleanse incision/area with: Soap & Water Additional Dressing/Incision Instructions: Steri-Strips will fall off in 7 to 10 days, if they do not fall off okay to remove after 10 days. Please Follow Up With: Odessa Guzman MD When: Call the office for a follow-up appointment early next week; after 5 PM and on the weekends call [phone] with any concerns. Meaningful Use Info Meaningful Use Diagnoses (Choose all that apply): None applicable Discharge Plan Admission Admit Date/Time: 06/03/22 21:51 Attending Provider: Odessa Guzman Primary Care Provider: Wale Melgoza Instructions Additional Instructions / Restrictions: Okay to take ibuprofen 400-600 mg PO q6hr PRN along with the Percocet. Avoid Tylenol since there is already Tylenol in the Percocet. Take all pain meds with food. Percocet can cause constipation recommend taking daily stool softener (i.e. Colace/docusate) while taking the pain meds. Discharge Orders/Prescriptions Prescriptions: New oxycodone-acetaminophen 5-325 mg tablet 1 - 2 tab PO Q6H PRN (Reason: pain) 3 Days Qty: 14 0RF No Action fluoxetine 40 mg Capsule 40 mg PO DAILY metolazone 2.5 mg Tablet 2.5 mg PO DAILY carvedilol [Coreg] 25 mg Tablet 25 mg PO BID potassium chloride 10 mEq Tablet Extended Release 10 meq PO DAILY spironolactone 25 mg Tablet 25 mg PO DAILY PRN PRN (Reason: fluid) torsemide 100 mg Tablet 100 mg PO DAILY glyburide-metformin 5-500 mg Tablet 1 tab PO BID diltiazem HCl [Cartia XT] 120 mg capsule,extended release 24hr 120 mg PO DAILY lisinopril 40 mg Tablet 40 mg PO DAILY Referrals / Follow Up: Wale Melgoza MD [Primary Care Provider] - Disposition Disposition (needs filled in before D/C Order can be placed): Home, Self Care
--- NOTE | 2022-06-07 13:06 | CASEMGMT ---
MICHELLE CM in to pt room, pt sitting up in chair in no distress. Pt is aware he is being dc'd and denies any homegoing needs at this time.
[2022-06-07 13:58] VITALS: BP 146/62; PULSE 76; RESP 18; TEMP 37.1; O2SAT 93
== END 2022-06-07 15:46 | disposition home or self-care (01) | DRG 354 ==
LOC: ED 11:04 → SDC 14:10 → ACINP 14:10 → MS3 06-04 20:50 → SDC 06-06 21:50 → MS3 06-06 21:50
PROVIDERS: Internal Medicine; Physician Assistant; Admitting Provider Surgery; Emergency Provider Emergency Medicine; PCP Family Medicine; Visit Provider Surgery
PROC: 0WQF0ZZ Repair Abdominal Wall, Open Approach (ICD-10-PCS; principal; 2022-06-03 15:40)
DX: K42.0 Umbilical hernia with obstruction, without gangrene (principal); Z68.43 Body mass index [BMI] 50.0-59.9, adult; E11.22 Type 2 diabetes mellitus with diabetic chronic kidney disease; I48.0 Paroxysmal atrial fibrillation; E66.01 Morbid (severe) obesity due to excess calories; N18.31 Chronic kidney disease, stage 3a; I12.9 Hypertensive chronic kidney disease with stage 1 through stage 4 chronic kidney disease, or unspecified chronic kidney disease; I87.8 Other specified disorders of veins; G47.33 Obstructive sleep apnea (adult) (pediatric); Z79.899 Other long term (current) drug therapy; Z87.891 Personal history of nicotine dependence; F32.A Depression, unspecified; Z79.84 Long term (current) use of oral hypoglycemic drugs
CPT/HCPCS: 36415; 71045; 74150; 74177; 80048; 80076; 82962; 83036; 83605; 84443; 85025; 88302; 88304; 88305; 93005; 99152; 99251; 99285; J7120; Q9967; A4216; C1760; G0463; J2405

== ENCOUNTER 2023-05-04 12:17 | Inpatient (IN) | payer OTHER, SELFPAY ==
[2023-05-04] VITALS (7 sets, daily range): BP systolic 139–169; BP diastolic 62–119; PULSE 67–88; RESP 16–24; TEMP 36.2–36.8; O2SAT 94–95; BMI 54.1; BMI 53.8
--- NOTE | 2023-05-04 13:00 | EX.ED.DYSGE1 ---
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 The last time he took his diuretics, which include torsemide, spironolactone, and metolazone, was this past Monday (today is Monday) and they did not do anything i.e. he did not urinate any more than usual. The last time he took them prior to that was about a week prior; he started getting scrotal edema the day before this past Monday and it has continued to worsen which is why he is here today, sent from his PCPs office. He denies any pain in his scrotum or perineum, nor does have any fevers, chills, or worsening edema elsewhere, he states the swelling in his legs is always bad, he denies having any known swelling in his trunk/abdomen, nor does have any dyspnea with exertion, orthopnea, chest discomfort, or history of heart failure. He recently moved here from the [place] area which is where he was seen his grinding and polishing laborer before, he does not have a new grinding and polishing laborer in the area yet which she is interested in as well. [facility] Medical History (Updated 05/04/23 @ 15:[address] Len Marks MD) Atrial fibrillation CKD (chronic kidney disease) Diabetes mellitus type 2, diet-controlled Former smoker Hypertension Home Medications carvedilol 25 mg tablet (Coreg) 25 mg PO BID 07/06/21 [History Last Taken Unknown] diltiazem HCl 120 mg capsule,extended release 24 hr (Cartia XT) 120 mg PO DAILY 07/06/21 [History Last Taken Unknown] fluoxetine 40 mg capsule 40 mg PO DAILY 07/06/21 [History Last Taken Unknown] glyburide 5 mg-metformin 500 mg tablet 1 tab PO BID 07/06/21 [History Last Taken Unknown] lisinopril 40 mg tablet 40 mg PO DAILY 07/06/21 [History Last Taken Unknown] metolazone 2.5 mg tablet 2.5 mg PO DAILY 07/06/21 [History Last Taken Unknown] potassium chloride 10 mEq tablet,extended release 10 meq PO DAILY 07/06/21 [History Last Taken Unknown] spironolactone 25 mg tablet 25 mg PO DAILY PRN PRN fluid 07/06/21 [History Last Taken Unknown] torsemide 100 mg tablet 100 mg PO DAILY 07/06/21 [History Last Taken Unknown] oxycodone-acetaminophen 5 mg-325 mg tablet 1 - 2 tab PO Q6H PRN pain 3 days #14 tabs 06/05/22 [Rx Last Taken Unknown] Allergy/AdvReac Type Severity Reaction Status Date / Time codeine Allergy Swelling Verified 06/13/22 14:24 Surgical History History of elbow surgery History of exploratory laparotomy (~05/2022) History of hernia repair (~05/2022) Social History Smoking Status: Former smoker ROS ROS ED Constitutional Constitutional ED: Denies chills or fever(s) Eyes Eyes: Denies change in vision or diplopia ENT ENT ED: Denies rhinorrhea or sore throat Cardiovascular Cardiovascular: Reports pedal edema; Denies chest pain or palpitations Respiratory/Chest Respiratory/Chest: Denies cough or dyspnea Gastrointestinal Gastrointestinal: Denies abdominal pain, diarrhea, nausea or vomiting Genitourinary Genitourinary ED: Reports scrotal swelling and other Details: urinating normally / as usual ; Denies dysuria or hematuria Musculoskeletal Musculoskeletal: Denies back pain or neck pain Integumentary Denies abscess or rash Neurologic Neurologic: Denies headache(s), paresthesias or weakness Psychiatric Psychiatric: Denies anxiety or suicidal thoughts EXAM Physical Exam Const Vital Signs: 05/04/23 12:19 Temperature 97.2 F L Temperature Source Temporal Pulse Rate 85 Respiratory Rate 18 Blood Pressure 169/91 H Blood Pressure Mean 117 Pulse Ox 95 Oxygen Delivery Method Room Air Positive well nourished, well developed and obese General Appearance ED: well developed and NAD Nutritional Appearance: obese HEENT Reports moist mucous membranes normocephalic and atraumatic Eyes PERRL and EOMs intact bilaterally Neck full ROM and supple Resp normal respiratory effort and clear to auscultation bilaterally Cardio regular rate and regular rhythm Heart Sounds: murmur systolic I/ soft Peripheral Pulses: pulses 2+ throughout GI non-tender and non-distended Auscultation: normoactive bowel sounds Palpation: soft Narrative: Significant nontender scrotal edema with very mild blanching erythema. No subcutaneous air throughout the scrotum nor the perineum and there is no tenderness there or signs of any abnormal skin/necrotic tissue. No genitourinary or inguinal rash. Back/Spine no CVA tenderness General Back: other FROM Extremity normal to inspection Extremity Narrative: F ROM throughout both lower extremities. No calf tenderness or palpable cords. General Extremety ED: Yes edema; Negative for pulses abnormal or tenderness General Extremity: edema bilateral lower extremity Details: severe (With symmetric changes of chronic stasis dermatitis no signs of acute infection/cellulitis); Negative for pulses abnormal Neuro oriented x3, CN's II-XII intact bilaterally and no sensory deficits noted Sensorium / Orientation: awake and alert Motor Exam: strength 5/5 throughout Skin no rashes or lesions noted and no wounds MDM MDM MDM Narrative Medical decision making narrative: Labs show elevated creatinine compared with his prior but it was last May unknown how acute this is. It is certainly well above his baseline looking back at his old labs/creatinine. Urine yet, but the rest of his labs look good, he does not have hypoproteinemia or hypoalbuminemia, to suggest nephrotic syndrome. I discussed with Dr. Trinidad on for nephrology, he advises that since he has an elevated creatinine it will take a week or so for oral pills to really take effect even if he is taking them every day so he recommends bringing him in for 23-hour observation on a furosemide drip, after giving him 60 IV initially here, and he will be happy to consult. Discussed with hospitalist. History & Record Review Additional record(s) reviewed:: Prior labs Lab Data Attestation: I reviewed the patient's lab results. Labs: Laboratory Results - last 24 hr 05/04/23 05/04/23 13:30 13:30 WBC 6.1 RBC 3.45 L Hgb 10.8 L Hct 33.1 L MCV 95.9 H MCH 31.3 MCHC 32.6 RDW Std Deviation 52.2 H RDW Coeff of Daniel 14.9 H Plt Count 148 L MPV 9.8 Immature Gran % (Auto) 0.300 Neut % (Auto) 67.5 Lymph % (Auto) 16.5 L [place] % (Auto) 10.0 Eos % (Auto) 4.4 Baso % (Auto) 1.3 H Absolute Neuts (auto) 4.1 Absolute Lymphs (auto) 1.00 Nucleated RBC % 0 Sodium 137 Potassium 3.8 Chloride 105 Carbon Dioxide 29.0 Anion Gap 3 L BUN 54 H Creatinine 2.05 H Estim Creat Clear Calc 43.44 Est GFR (MDRD) Af Amer 42 L Est GFR (MDRD) Non-Af 35 L BUN/Creatinine Ratio 26.3 H Glucose 101 Calcium 9.5 Total Bilirubin 1.10 H AST 14 L ALT 10 L Alkaline Phosphatase 105 Total Protein 8.4 H Albumin 3.7 Globulin 4.7 H Albumin/Globulin Ratio 0.8 L Management Discussion w/another healthcare provider: Hospitalist and Airplane Technician Discharge Plan Dx/Rx/DC Orders Clinical Impression: CHAO (acute kidney injury), Scrotal edema, Renal anasarca Disposition Disposition: [facility]
[2023-05-04 13:38] LABS: Absolute Neutrophil Count 4.1 X10^3/uL (2.0-7.7); Basophil# 0.08 X10^3/uL; Basophil% 1.3 % (0-1); Eosinophil# 0.27 X10^3/uL; Eosinophils% 4.4 % (0-5); Hematocrit 33.1 % (40-54); Hemoglobin 10.8 g/dL (13.0-16.5); Lymphocyte % 16.5 % (19-41); Mean Corp Hgb Conc 32.6 g/dL (32-36); Mean Corpuscular Hgb 31.3 pg (27.0-32.0); Mean Corpuscular Volume 95.9 fL (80-94); Mean Platelet Vol. 9.8 fl (6.2-12.0); Monocyte# 0.61 X10^3/uL; NRBC Flagged by Analyzer 0 % (0-5); Neutrophil # 4.09 X10^3/uL (2.7-7.7); Neutrophil % 67.5 % (47-70); Platelet Count 148 K/mm3 (150-450); RBC Distribution Width CV 14.9 % (11.6-14.6); RBC Distribution Width SD 52.2 fl (35.1-43.9); Red Blood Count 3.45 M/mm3 (4.6-6.2); White Blood Count 6.1 K/mm3 (4.4-11.0)
[2023-05-04 14:12] LABS: ALB/GLOB Ratio 0.8 RATIO (0.9-2.4); AST(SGOT) 14 U/L (15-37); Alanine Aminotransfer ALT/SGPT 10 U/L (16-61); Albumin, Serum 3.7 g/dL (3.2-5.0); Alkaline Phosphatase 105 U/L (45-117); Anion Gap 3 (5-15); BUN 54 mg/dL (7-18); BUN/Creat Ratio 26.3 RATIO (10-20); Calcium,Total 9.5 mg/dL (8.5-10.1); Chloride 105 mmol/L (98-107); Creatinine, Serum 2.05 mg/dL (0.70-1.30); EST Glomerular Filtration Rate 35 mL/min (>60); Est Glom Filt Rate - Afr Amer 42 mL/min (>60); Estimated Creatinine Clearance 43.44 ml/min; Globulin 4.7 g/dL (2.2-4.2); Glucose 101 mg/dL (74-106); Potassium 3.8 mmol/L (3.5-5.1); Protein, Total 8.4 g/dL (6.4-8.2); Sodium Level 137 mmol/L (136-145)
--- NOTE | 2023-05-04 15:43 | NURSING ---
[id number] APPIAH.
--- NOTE | 2023-05-04 15:44 | NURSING ---
[id number] APPIAH'S OFFICE TO [address] [employer]. WAS TOLD I CAN'T [facility] FOR AN HOUR BY ANA MARIA
--- NOTE | 2023-05-04 15:44 | NURSING ---
[id number] ADAIR'S OFFICE. TALKED TO PARRISH. PAGED DR MCMILLAN
--- NOTE | 2023-05-04 16:11 | PCM.HP.STD ---
HPI - General General Date of Admission: 05/04/23 Date of Service: 05/04/23 Chief Complaint: Increased scrotal edema in more in 6 days, chronic bilateral lower extremity swelling. HPI Narrative CHERYL HERRERA, is a 62 M was sent to ED by PCP for increased scrotal swelling and edema. Patient states that he has chronic bilateral lower extremity for many years at least for 3 to 4 years. He takes 3 diuretics torsemide, spironolactone and metolazone but he takes intermittently, last dose was on Monday about 1 week ago. He said that he has baseline increased scrotal size but it got much bigger which he noticed on past Monday about 4 days ago. 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 He denies any shortness of breath at rest and in mild activity but feels more fatigued and dyspnea on moderate to severe exertion. Patient did not have BNP, EKG or chest x-ray in ED therefore ordered. Medical Lab Director is consulted from ER and started on Lasix 60 mg IV and continuous drip. Patient is to follow-up with cross cut sawyer in [place] but has moved to this region. 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 He said he had A-fib and was on anticoagulant but for last few years his rhythm is regular therefore does not take any anticoagulant. Vitals in ED reviewed BP 169/91. Heart rate, respiratory rate and pulse ox normal range. [facility] Medical History Atrial fibrillation CKD (chronic kidney disease) Diabetes mellitus type 2, diet-controlled Former smoker Hypertension Home Medications carvedilol 25 mg tablet (Coreg) 25 mg PO BID HEART 07/06/21 [History Last Taken 05/03/23] fluoxetine 40 mg capsule 40 mg PO DAILY DEPRESSION 07/06/21 [History Last Taken 05/03/23] lisinopril 40 mg tablet 40 mg PO DAILY BP 07/06/21 [History Last Taken 05/03/23] metolazone 2.5 mg tablet 2.5 mg PO DAILY FLUID 07/06/21 [History Last Taken 04/30/23] potassium chloride 10 mEq tablet,extended release 10 meq PO DAILY 07/06/21 [History Last Taken 05/03/23] spironolactone 25 mg tablet 25 mg PO DAILY PRN PRN fluid 07/06/21 [History Last Taken 04/30/23] torsemide 100 mg tablet 100 mg PO DAILY FLUID 07/06/21 [History Last Taken 04/30/23] atorvastatin 40 mg tablet 40 mg PO DAILY CHOLESTEROL 05/04/23 [History Last Taken 05/03/23] ibuprofen 800 mg tablet 800 mg PO Q8H PAIN 05/04/23 [History Last Taken 04/29/23] indomethacin 50 mg capsule 50 mg PO DAILY PRN PRN GOUT 05/04/23 [History Last Taken 1 Month Ago ~04/03/23] Allergy/AdvReac Type Severity Reaction Status Date / Time codeine Allergy Swelling Verified 06/13/22 14:24 Surgical History History of elbow surgery History of exploratory laparotomy (~05/2022) History of hernia repair (~05/2022) Social History Smoking Status: Former smoker ROS ROS Narrative Constitutional: Reports fatigue and weakness. No fever. HEENT: Reports systems reviewed and no addt'l complaints, except as documented Respiratory/Chest: As described in HPI. CVS: Denies chest pain/pressure or tightness. Gastrointestinal: Denies coffee ground emesis, hematemesis or vomiting. Denies abdominal pain. Genitourinary: Denies burning urination or new urinary tract symptoms Musculoskeletal: Chronic bilateral lower extremity lymphedema. Denies acute joint pain or limited range of motion. No acute injury Neurologic: Denies seizure-like symptoms. No acute strokelike symptoms. skin: No ulcer. No rash Endocrinology: Reports systems reviewed and no addt'l complaints, except as documented Hematologic/Lymphatic: Bilateral lower extremity chronic lymphedema. Reports systems reviewed and no addt'l complaints, except as documented Rest 14 ROS are negative except as mentioned in HPI Vital Signs Vital Signs Vital Signs: 05/04/23 12:19 Temperature 97.2 F L Temperature Source Temporal Pulse Rate 85 Respiratory Rate 18 Blood Pressure 169/91 H Blood Pressure Mean 117 Pulse Ox 95 Oxygen Delivery Method Room Air Weight Weight: 422 lb Body Mass Index (BMI) 54.1 Physical Exam Narrative General: Alert, Oriented x3, Cooperative, morbid obesity BMI 54.2 kg/m? HEENT: Atraumatic, PERRLA, EOMI, Normocephalic Oral: Deep visualized. No Gingival or Mucosal Lesions/ Ulcerations Neck: Supple, No JVD, Negative Carotid Bruits Lungs: Air entry diminished in bilateral lung bases. No crepitation/rhonchi Cardiovascular: Regular rate, Regular Rhythm, Normal S1, Normal S2, No murmurs Abdomen: Bowel Sounds Present, Soft, Non Tender, large fat abdomen. Could not palpate for fluid thrill/shifting dullness. Midline ventral hernia surgical scar. : Increased scrotal edema. Penis buried in his scrotum. No renal angle tenderness. No suprapubic tenderness. Extremities: Bilateral lower extremity lymphedema up to thigh level. Skin: No open ulcer but chronic skin changes of lymphedema including hypertrophy and hyperplasia of soft tissues. Musculoskeletal: ROM at knee and hip joints restricted due to edema of lower extremities. No Tenderness to Palpation of Joints or Extremities Neurological: Cranial nerves II-XII grossly intact, DTR 2+/4 and Symmetrical, Neuro grossly intact Psych/Mental Status: Normal Affect, Appropriate. Results Lab / Micro Data Result Diagrams: 05/04/23 13:30 05/04/23 13:30 Labs: Laboratory Results - last 24 hr 05/04/23 13:30: WBC 6.1, RBC 3.45 L, Hgb 10.8 L, Hct 33.1 L, MCV 95.9 H, MCH 31.3, MCHC 32.6, RDW Std Deviation 52.2 H, RDW Coeff of Daniel 14.9 H, Plt Count 148 L, MPV 9.8, Immature Gran % (Auto) 0.300, Neut % (Auto) 67.5, Lymph % (Auto) 16.5 L, [place] % (Auto) 10.0, Eos % (Auto) 4.4, Baso % (Auto) 1.3 H, Absolute Neuts (auto) 4.1, Absolute Lymphs (auto) 1.00, Nucleated RBC % 0 05/04/23 13:30: Sodium 137, Potassium 3.8, Chloride 105, Carbon Dioxide 29.0, Anion Gap 3 L, BUN 54 H, Creatinine 2.05 H, Estim Creat Clear Calc 43.44, Est GFR (MDRD) Af Amer 42 L, Est GFR (MDRD) Non-Af 35 L, BUN/Creatinine Ratio 26.3 H, Glucose 101, Calcium 9.5, Total Bilirubin 1.10 H, AST 14 L, ALT 10 L, Alkaline Phosphatase 105, Total Protein 8.4 H, Albumin 3.7, Globulin 4.7 H, Albumin/Globulin Ratio 0.8 L Assessment & Plan Assessment/Plan (1) Scrotal edema: (2) CHAO (acute kidney injury): PLAN: Plan This is a 62-year-old gentleman being admitted for management of increased lower extremity and scrotal edema. 1. Worsening lower extremity and scrotal edema with history of bilateral lymphedema rule out heart failure: Patient is being admitted in PCU. Twelve-lead EKG chest x-ray PA and lateral and BNP ordered. 2D echo ordered for tomorrow AM. Started on Lasix IV bolus and then drip as per cross cut sawyer recommendation. Medical Lab Director is consulted from ED. Strict intake and output, fluid restriction less than 1500 mL, daily weight monitoring, kidney and electrolytes monitoring 2. History of A-fib, exact classification unclear: Patient he had A-fib in the past but resolved now possible transient. Twelve-lead EKG ordered. Not on anticoagulant. Heart rate is controlled. 3. CHAO on CKD stage II: Patient baseline creatinine runs around 1.4-1.5, last outpatient labs in May 2022. Admitted with creatinine 2.05. BUN also increased from 30-54. Monitor kidney function electrolytes. Hold metolazone and other nephrotoxic medications including ibuprofen and indomethacin. Potassium in normal range therefore continue spironolactone. Serum magnesium and phosphorus in normal range. Medical Lab Director is consulted. 4. Diabetes mellitus type 2, diet controlled. On 1800-calorie ADA diet. Accu-Chek insulin coverage below sliding scale. A1c tomorrow AM. Glucose is 101 mg/dl on baseline. 5. Hypertension: Hold antihypertensive lisinopril. Patient on IV diuretic. 6. Dyslipidemia and morbid obesity: Patient BMI is 54.2 kg/m?. Weight loss counseling done. Income Tax Auditor consult. Patient on atorvastatin. Fasting profile and TSH tomorrow AM. Living will/advanced directive/end of life care: Patient does not have living will or advanced directive. Patient does not have designated power of deputy attorney general for health. His son is next to kin. After discussion of benefits/risks procedures involved with full code, DNR CC arrest and DNR CC, the patient opted for DNRCC arrest with no intubation. Patient does want artificial life support including intubation, tube feed, ventilator and/chest compression, central venous catheter, vasopressor and DC shock if needed Total time spent in [id number] encounter in discussion of advanced directive 17 minutes. Laboratory Results 05/04/23 13:30: WBC 6.1, RBC 3.45 L, Hgb 10.8 L, Hct 33.1 L, MCV 95.9 H, MCH 31.3, MCHC 32.6, RDW Std Deviation 52.2 H, RDW Coeff of Daniel 14.9 H, Plt Count 148 L, MPV 9.8, Immature Gran % (Auto) 0.300, Neut % (Auto) 67.5, Lymph % (Auto) 16.5 L, [place] % (Auto) 10.0, Eos % (Auto) 4.4, Baso % (Auto) 1.3 H, Absolute Neuts (auto) 4.1, Absolute Lymphs (auto) 1.00, Nucleated RBC % 0 05/04/23 13:30: Sodium 137, Potassium 3.8, Chloride 105, Carbon Dioxide 29.0, Anion Gap 3 L, BUN 54 H, Creatinine 2.05 H, Estim Creat Clear Calc 43.44, Est GFR (MDRD) Af Amer 42 L, Est GFR (MDRD) Non-Af 35 L, BUN/Creatinine Ratio 26.3 H, Glucose 101, Calcium 9.5, Total Bilirubin 1.10 H, AST 14 L, ALT 10 L, Alkaline Phosphatase 105, Total Protein 8.4 H, Albumin 3.7, Globulin 4.7 H, Albumin/Globulin Ratio 0.8 L 05/04/23 13:30: Sodium Cancelled, Potassium Cancelled, Chloride Cancelled, Carbon Dioxide Cancelled, Anion Gap Cancelled, BUN Cancelled, Creatinine Cancelled, Est GFR (MDRD) Af Amer Cancelled, Est GFR (MDRD) Non-Af Cancelled, BUN/Creatinine Ratio Cancelled, Glucose Cancelled, Calcium Cancelled, Phosphorus 3.2, Magnesium 2.5 05/04/23 13:30: B-Natriuretic Peptide Pending Charges/Coding Visit Charges Inpatient E&M: 11259 Init Hosp L3 Procedures Hospitalists Procedures: 40862 Advncd Care Plan 30 Min
[2023-05-04] MEDS: Furosemide 100 MG/10 ML Vial 60 MG IV (16:16)
--- NOTE | 2023-05-04 16:27 | NURSING ---
PCU OBS ADRIEN MISHRA
[2023-05-04] MEDS: Furosemide 500 MG in Empty Viaflex 50 mL 1 EACH CONT INF (16:30)
[2023-05-04 16:31] LABS: Magnesium 2.5 mg/dL (1.6-2.6); Phosphorus 3.2 mg/dL (2.5-4.9)
--- NOTE | 2023-05-04 16:33 | EKG12_ITS ---
Test Reason : EDEMA Blood Pressure : / mmHG Vent. Rate : 070 BPM Atrial Rate : 000 BPM P-R Int : 000 ms QRS Dur : 100 ms QT Int : 442 ms P-R-T Axes : 000 -88 083 degrees QTc Int : 477 ms Atrial fibrillation with premature ventricular or aberrantly conducted complexes Left axis deviation Pulmonary disease pattern Incomplete right bundle branch block Nonspecific T wave abnormality Abnormal ECG When compared with ECG of 03-JUN-2022 10:58, Incomplete right bundle branch block is now Present Confirmed by MAYURI HUANG, MARILY ([id number]), deputy editor in chief KYM BANDA ([id number]) on 05/08/2023 11:13:32 AM Referred By: Confirmed By:MARILY MESSINA MD
--- NOTE | 2023-05-04 16:45 | RAD_ITS ---
STUDY: X-RAY CHEST REASON FOR EXAM: Male, 62 years old. Shortness of breath on exertion. Lower extremity edema. TECHNIQUE: PA and lateral views of the chest. COMPARISON: June 03, 2022 (1627 hours. FINDINGS: The lungs are clear and expanded. There is no demonstrated pleural abnormality. The heart appears mildly enlarged. Normal mediastinum. Mild hilar prominence. Normal visualized aortic arch and descending thoracic aorta. Normal visualized thoracic spine. Normal visualized ribs, clavicles, and shoulders. There is no demonstrated abnormality of the visualized soft tissue structures of the upper abdomen. RAD/Chest PA and Lateral IMPRESSION: Stable cardiomegaly with mild hilar prominence. Question mild vascular congestion. Electronically Signed: Mike Espino DO at 17:00 EDT ,
[2023-05-04 17:00] LABS: BNP,B-Type NATRIURETIC PEPTIDE 206.3 pg/mL (0-100)
[2023-05-04] MEDS: Heparin Injection (Vial) 5,000 UNIT/ML VIAL 5000 UNIT SC (22:05)
[2023-05-04] MEDS: Carvedilol 25 MG Tablet PO (22:11)
[2023-05-04] MEDS: Atorvastatin Calcium 40 MG Tablet PO (22:12)
[2023-05-04 22:50] LABS: Bedside Glucose 123 mg/dL (74-106)
[2023-05-05 03:28] VITALS: BP 127/67; PULSE 61; RESP 16; TEMP 36.4; O2SAT 95
[2023-05-05 03:33] VITALS: O2SAT 95
[2023-05-05 05:50] LABS: Absolute Lymphocyte Count 0.89 X10^3/uL (0.83-4.51); Absolute Neutrophil Count 4.3 X10^3/uL (2.0-7.7); Basophil# 0.05 X10^3/uL; Basophil% 0.8 % (0-1); Eosinophil# 0.23 X10^3/uL; Eosinophils% 3.7 % (0-5); Hematocrit 31.4 % (40-54); Hemoglobin 10.1 g/dL (13.0-16.5); Lymphocyte # 0.89 X10^3/ul (0.83-4.51); Lymphocyte % 14.4 % (19-41); Mean Corp Hgb Conc 32.2 g/dL (32-36); Mean Corpuscular Hgb 31.3 pg (27.0-32.0); Mean Corpuscular Volume 97.2 fL (80-94); Mean Platelet Vol. 9.5 fl (6.2-12.0); Monocyte# 0.64 X10^3/uL; Monocyte% 10.4 % (0-10); NRBC Flagged by Analyzer 0 % (0-5); Neutrophil # 4.34 X10^3/uL (2.7-7.7); Neutrophil % 70.4 % (47-70); Platelet Count 157 K/mm3 (150-450); RBC Distribution Width SD 53.5 fl (35.1-43.9); Red Blood Count 3.23 M/mm3 (4.6-6.2); White Blood Count 6.2 K/mm3 (4.4-11.0)
[2023-05-05] MEDS: Heparin Injection (Vial) 5,000 UNIT/ML VIAL 5000 UNIT SC ×2 (05:55→14:18)
--- NOTE | 2023-05-05 05:55 | ECHOCS_ITS ---
Reason For Study: HEART FAILURE Procedure This was a 2D Doppler, Color Flow transthoracic echocardiogram. The study was technically difficult. Contrast injection was performed. Exam performed portable in patient room. Left Ventricle Normal LV size. The estimated ejection fraction is 65 %. Unable to assess diastolic dysfunction. No regional wall motion abnormalities noted. Right Ventricle Mildly dilated right ventricle. Normal systolic function. Atria The left atrium is severely enlarged. Normal right atrium. No doppler evidence for ASD. Mitral Valve There is moderate mitral annular calcification. There is no mitral valve stenosis. Mild (1+) mitral valve insufficiency. Tricuspid Valve There is no tricuspid stenosis. Pulmonary artery systolic pressure is 55 mmHg. Mild tricuspid valve insufficiency. Aortic Valve Trisinus/trileaflet aortic valve. There is no aortic stenosis. No aortic valve insufficiency. Pulmonic Valve There is no pulmonic valvular stenosis. No pulmonic valve insufficiency. Great Vessels Normal aortic root. Pericardium/Pleural No pericardial effusion. Medication Diluted definity 2ml given slow IV push to enhance endocardial definition. Performed a rapid injection of agitated mix of 9 cc saline and 1cc air to assess for atrial septal defect. MMode/2D Measurements & Calculations LVIDd: 5.2 cm IVSd: 1.4 cm Ao root diam: 3.5 cm LVIDs: 3.5 cm LVPWd: 1.5 cm FS: 32.1 % LAV(MOD-bp): 108.2 ml LVAd ap4: 36.3 cm2 SV(MOD-sp4): 65.2 ml LAV(MOD-bp) Indexed: 36.4 ml/m2 LVLd ap4: 8.1 cm LAV(MOD-sp2): 100.5 ml EDV(MOD-sp4): 131.5 ml LAV(MOD-sp4): 109.5 ml EDV(sp4-el): 137.7 ml LVAs ap4: 24.8 cm2 LVLs ap4: 7.7 cm ESV(MOD-sp4): 66.3 ml ESV(sp4-el): 68.3 ml EF(MOD-sp4): 49.6 % EF(sp4-el): 50.4 % SV(sp4-el): 69.4 ml LA A4 area: 32.2 cm2 LA dimension(2D): 5.9 cm RA A4 area: 28.6 cm2 Doppler Measurements & Calculations MV E max tam: 147.2 cm/sec MV V2 max: 166.3 cm/sec Ao V2 max: 133.0 cm/sec MV max P.1 mmHg Ao max P.2 mmHg MV V2 mean: 87.3 cm/sec Ao V2 mean: 89.9 cm/sec MV mean P.9 mmHg Ao mean P.8 mmHg MV V2 VTI: 33.5 cm Ao V2 VTI: 30.1 cm AV (velocity ratio): 0.81 LV V1 max: 109.2 cm/sec PA V2 max: 82.4 cm/sec TR max tam: 357.2 cm/sec LV V1 max P.8 mmHg PA V2 mean: 58.0 cm/sec TR max P.0 mmHg LV V1 mean P.8 mmHg LV V1 mean: 79.1 cm/sec LV V1 VTI: 24.3 cm ECHO/Echo Complete W/ Contrast Interpretation Summary The estimated ejection fraction is 65 %. Unable to assess diastolic dysfunction. The left atrium is severely enlarged. Mild (1+) mitral valve insufficiency. Mildly dilated right ventricle. Ordering Physician: Deniz Maharaj Referring Physician: MD Abad Wale Performed By: Ronel Solano RCS
[2023-05-05 06:21] LABS: Bedside Glucose 102 mg/dL (74-106)
[2023-05-05 07:37] VITALS: BMI 52.9
[2023-05-05 07:38] LABS: Anion Gap 6 (5-15); BUN 53 mg/dL (7-18); Calcium,Total 9.3 mg/dL (8.5-10.1); Chloride 105 mmol/L (98-107); Cholesterol < 50 mg/dL (200); Creatinine, Serum 1.83 mg/dL (0.70-1.30); EST Glomerular Filtration Rate 40 mL/min (>60); Est Glom Filt Rate - Afr Amer 48 mL/min (>60); Estimated Creatinine Clearance 48.66 ml/min; Glucose 100 mg/dL (74-106); High Density Lipoprotein 25 mg/dL; Potassium 3.3 mmol/L (3.5-5.1); Sodium Level 139 mmol/L (136-145); Thyroid Stim Hormone (TSH) 1.86 uIU/mL (0.358-3.74); Triglycerides 42 mg/dL; Very Low Density Lipoprotein 8 mg/dL (5-40)
--- NOTE | 2023-05-05 07:40 | PCM.PN.HOSP ---
Reason for Visit Reason for Visit: Diagnoses Acute kidney failure, unspecified (05/04/23) Other specified disorders of the male genital organs (05/04/23) Subjective Subjective This is a 62-year-old gentleman being admitted for management of increased lower extremity and scrotal edema. Objective Data Objective Data Vital Signs: Vital Signs Temp Pulse Resp BP Pulse Ox O2 Del Method 97.5 F L 61 16 127/67 H 95 Room Air 05/05/23 03:28 05/05/23 03:28 05/05/23 03:28 05/05/23 03:28 05/05/23 03:33 05/05/23 03:33 Oxygen Delivery Method Room Air Weight: 187.1 kg Body Mass Index (BMI) 52.9 Intake & Output: Intake and Output for Last 24 Hours 05/03/23 05/04/23 05/05/23 23:59 23:59 23:59 Intake Total 200 / 200 150 / 150 Output Total 970 / 970 1020 / 1020 Balance -770 / -770 -870 / -870 Lab / Micro Data Result Diagrams: 05/05/23 05:02 05/05/23 05:02 Labs: Laboratory Results - last 24 hr 05/04/23 13:30: WBC 6.1, RBC 3.45 L, Hgb 10.8 L, Hct 33.1 L, MCV 95.9 H, MCH 31.3, MCHC 32.6, RDW Std Deviation 52.2 H, RDW Coeff of Daniel 14.9 H, Plt Count 148 L, MPV 9.8, Immature Gran % (Auto) 0.300, Neut % (Auto) 67.5, Lymph % (Auto) 16.5 L, [place] % (Auto) 10.0, Eos % (Auto) 4.4, Baso % (Auto) 1.3 H, Absolute Neuts (auto) 4.1, Absolute Lymphs (auto) 1.00, Nucleated RBC % 0 05/04/23 13:30: Sodium 137, Potassium 3.8, Chloride 105, Carbon Dioxide 29.0, Anion Gap 3 L, BUN 54 H, Creatinine 2.05 H, Estim Creat Clear Calc 43.44, Est GFR (MDRD) Af Amer 42 L, Est GFR (MDRD) Non-Af 35 L, BUN/Creatinine Ratio 26.3 H, Glucose 101, Calcium 9.5, Total Bilirubin 1.10 H, AST 14 L, ALT 10 L, Alkaline Phosphatase 105, Total Protein 8.4 H, Albumin 3.7, Globulin 4.7 H, Albumin/Globulin Ratio 0.8 L 05/04/23 13:30: Sodium Cancelled, Potassium Cancelled, Chloride Cancelled, Carbon Dioxide Cancelled, Anion Gap Cancelled, BUN Cancelled, Creatinine Cancelled, Est GFR (MDRD) Af Amer Cancelled, Est GFR (MDRD) Non-Af Cancelled, BUN/Creatinine Ratio Cancelled, Glucose Cancelled, Calcium Cancelled, Phosphorus 3.2, Magnesium 2.5 05/04/23 13:30: B-Natriuretic Peptide 206.3 H 05/04/23 22:02: POC Glucose 123 H 05/05/23 05:02: WBC 6.2, RBC 3.23 L, Hgb 10.1 L, Hct 31.4 L, MCV 97.2 H, MCH 31.3, MCHC 32.2, RDW Std Deviation 53.5 H, RDW Coeff of Daniel 15.0 H, Plt Count 157, MPV 9.5, Immature Gran % (Auto) 0.300, Neut % (Auto) 70.4 H, Lymph % (Auto) 14.4 L, Douglas % (Auto) 10.4 H, Eos % (Auto) 3.7, Baso % (Auto) 0.8, Absolute Neuts (auto) 4.3, Absolute Lymphs (auto) 0.89, Nucleated RBC % 0 05/05/23 05:02: Sodium 139, Potassium 3.3 L, Chloride 105, Carbon Dioxide 28.0, Anion Gap 6, BUN 53 H, Creatinine 1.83 H, Estim Creat Clear Calc 48.66, Est GFR (MDRD) Af Amer 48 L, Est GFR (MDRD) Non-Af 40 L, BUN/Creatinine Ratio 29.0 H, Glucose 100, Calcium 9.3, Triglycerides 42, Cholesterol < 50, LDL Cholesterol TNP, VLDL Cholesterol 8, HDL Cholesterol 25 L, TSH 1.86 05/05/23 05:53: POC Glucose 102 Radiography Diagnostic Testing: Radiology Impression Chest X-Ray 05/04/23 16:45 IMPRESSION: Stable cardiomegaly with mild hilar prominence. Question mild vascular congestion. Electronically Signed: Mike Espino DO at 17:00 EDT Reading Location ID and State: [address] [address] Tel [phone], Service support , Physical Exam Narrative GENERAL: cooperative HEENT: Atraumatic; normocephalic EYES; Anicteric, Normal Conjunctiva NECK; supple, normal thyroid, RESPIRATORY: Diminished to auscultation CARDIOVASCULAR: Regular S1 S2, GI: soft, normoactive bowel sounds, : Scrotal edema EXTREMITIES: Bipedal edema MUSCULOSKELETAL: no muscle wasting NEURO: Awake; no lateralizing signs. SKIN: No Rash PSYCH; Flat affect Assessment & Plan Assessment/Plan (1) Scrotal edema: (2) CHAO (acute kidney injury): PLAN: Plan This is a 62-year-old gentleman being admitted for management of increased lower extremity and scrotal edema. 1. Acute congestive heart failure (unspecified) ? Patient presented with increasing bipedal edema as well as scrotal edema. His BNP was mildly elevated which is not surprising given his BMI of 53. Admitted to a monitored bed managed with strict input and output, daily weight, low-sodium diet as well as diuretics echo ordered for EF assessment 2. Paroxysmal A-fib ? Rate controlled 3. Acute kidney injury ? Superimposed on chronic kidney disease stage III monitoring with daily BMPs 4. Dyslipidemia -Patient is on statin therapy, continued at home dose 5. Hypertension - Blood pressure controlled, home medications continued with dose adjustment as needed 6. Diabetes mellitus type 2 ? Managed with diet only please on Accu-Cheks before meals and at bedtime with sliding scale coverage 7. Class III obesity with a BMI of 53 ? Complicating patient's care weight loss advised 8. DVT prophylaxis -SC heparin 5000 unit Q8 Time spent in the patient's overall evaluation,decision-making process, review of diagnostic data, adjustment of management, discussion with other providers, nursing nursing and ancillary staff involved in patient's care documentation, 50 Minutes Charges/Coding Visit Charges Inpatient E&M: 43383 [facility] Hosp L3
--- NOTE | 2023-05-05 08:06 | PCM.CONS.R ---
Assessment & Plan Assessment/Plan (1) CHAO (acute kidney injury): (2) Chronic kidney disease, stage 3b: (3) Hypokalemia: PLAN: Plan Impression/Plan: The patient is a 62-year-old man with past history of type 2 diabetes mellitus (diet-controlled), hypertension, atrial fibrillation, hyperlipidemia, gout, and chronic kidney disease. The patient presented to the hospital with a 1 week history of progressive increase in lower extremity and scrotal swelling. Nephrology is following for acute kidney injury on chronic kidney disease and for volume management. Acute kidney injury on chronic kidney disease stage G3b. Baseline serum creatinine from 1 year ago was around 1.38 mg/dL, EGFR 56 mL/min. Serum creatinine was 2.05 mg/dL on presentation on 05/04/2023, EGFR 35 mL/min. Unclear what the underlying CKD is from. The patient tells me that he has been followed by numerical control router operator in [place], [place] since the . Unfortunately, he does not know what the [place] diagnosis for CKD is. Interestingly, despite requirement for both loop and thiazide diuretic for volume control, his serum albumin is normal at 3.7 g/dL which argues against nephrotic syndrome. There is no available urinalysis or urine ACR. I will check urinalysis, urine ACR and PCR. If there is significant proteinuria, I will check SPEP, immunofixation, and free light chains. This can be done as outpatient. Since her renal function has improved despite diuresis with furosemide drip, the patient can be started back on his home regimen of diuretics: Torsemide 100 mg once a day, spironolactone 25 mg once a day, and metolazone 2.5 mg once a day. I will arrange for outpatient follow-up in our [place] office within the next week or 2. Anasarca. I suspect that volume overload from lack of adherence to prescribed diuretic. He also has chronic kidney disease which is likely progressing over the past year. The patient will need to be followed in the office for CKD and for diuretic adjustment. However, this can be done as an outpatient. Hypokalemia. Hypokalemia secondary to diuresis. We will give a dose of potassium chloride today. Since the patient will be back on spironolactone, there is no need to schedule potassium chloride. However, I would recheck potassium and magnesium level as outpatient within 1 week. Nephrology plan discussed with Dr. Orellana. HPI Consult Data Date of Consult: 05/05/23 HPI Narrative Reason for Consultation: Anasarca and the setting of known chronic kidney disease. HPI Narrative: The patient is a 62-year-old man with past history of type 2 diabetes mellitus (diet-controlled), hypertension, atrial fibrillation, hyperlipidemia, gout, and chronic kidney disease. The patient was sent in to ED by his PCP because of increased scrotal swelling and lower extremity edema. Nephrology is asked to see the patient because of his prior history of chronic kidney disease and anasarca. In regards to his CKD, the patient has seen a numerical control router operator in [place], [place]. However, we do not know what his specific diagnosis is. He was last seen by Dr. Gold in [place] in 2019. On presentation to the hospital, serum creatinine is 2.05 mg/dL on 05/04/2023. Last available serum creatinine from May 2022 was around 1.4 to 1.5 mg/dL. The patient denies current chest pain, shortness of breath at rest, or nausea. Edema has been increasing progressively over the last week. The patient has been prescribed torsemide, metolazone, and spironolactone for volume control. The patient is also on lisinopril as well. However, he only takes diuretics on intermittent basis because of his job. 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 He last took diuretics 1 week prior to presentation to the hospital yesterday. He only takes diuretic once a week on average. The patient denies LUTS. He denies chronic use of NSAIDs. PFSH Medical History Atrial fibrillation Chronic pain CKD (chronic kidney disease) Diabetes Diabetes mellitus type 2, diet-controlled Former smoker Hypertension Kidney disease Non-smoker Home Medications carvedilol 25 mg tablet (Coreg) 25 mg PO BID HEART 07/06/21 [History Last Taken 05/03/23] fluoxetine 40 mg capsule 40 mg PO DAILY DEPRESSION 07/06/21 [History Last Taken 05/03/23] lisinopril 40 mg tablet 40 mg PO DAILY BP 07/06/21 [History Last Taken 05/03/23] metolazone 2.5 mg tablet 2.5 mg PO DAILY FLUID 07/06/21 [History Last Taken 04/30/23] potassium chloride 10 mEq tablet,extended release 10 meq PO DAILY 07/06/21 [History Last Taken 05/03/23] spironolactone 25 mg tablet 25 mg PO DAILY PRN PRN fluid 07/06/21 [History Last Taken 04/30/23] torsemide 100 mg tablet 100 mg PO DAILY FLUID 07/06/21 [History Last Taken 04/30/23] atorvastatin 40 mg tablet 40 mg PO DAILY CHOLESTEROL 05/04/23 [History Last Taken 05/03/23] ibuprofen 800 mg tablet 800 mg PO Q8H PAIN 05/04/23 [History Last Taken 04/29/23] indomethacin 50 mg capsule 50 mg PO DAILY PRN PRN GOUT 05/04/23 [History Last Taken 1 Month Ago ~04/03/23] Allergy/AdvReac Type Severity Reaction Status Date / Time codeine Allergy Swelling Verified 05/04/23 17:09 Surgical History (Updated 05/04/23 @ 17:08 by Geri Cochran) History of appendectomy History of elbow surgery History of exploratory laparotomy (~05/2022) History of hernia repair (~05/2022) Social History Smoking Status: Former smoker ROS ROS Narrative Constitutional: There is no weight loss, fatigue, malaise or lethargy. HEENT: No visual change, double vision, scotomas. No rhinorrhea, epistaxis, or sinus pain. No tinnitus or hearing loss. No sore throat, odynophagia or gingival bleeding. Cardiovascular: No chest pain, shortness of breath, exercise intolerance, PND, orthopnea, palpitation, or claudication. Increased peripheral edema as per HPI. Respiratory: No cough, sputum, wheeze, hemoptysis, dyspnea, or exercise intolerance. Gastrointestinal: No abdominal pain, dysphagia, anorexia, nausea, vomiting, diarrhea, constipation, obstipation, hematemesis, hematochezia, melena, or tenesmus. Genitourinary: No incontinence, dysuria, gross hematuria, polyuria, or hesitancy. Increasing scrotal edema as per HPI. Musculoskeletal: No stiffness, pain, joint swelling, decreased range of motion, crepitus, or functional deficit. Integumentary: No pruritus, rash, striae, wound, incision, acanthosis, tumors, or eczema. Neurological: No change in sight, smell, hearing, taste. There is no seizure, headache, numbness, poor balance, speech problem, cognitive disturbance. Psychiatric: No depression, anxiety, paranoia, anhedonia, or suresh. Endocrine: No temperature intolerance, polydipsia, polyuria, polyphagia. Hematologic: No purpura, petechia, prolonged bleeding, or blood clots. Physical Exam Narrative General: Alert and oriented x3, NAD. HEENT: Normocephalic, atraumatic. Mucous membrane moist without erythema. PERRLA, EOMI. Hearing is intact. Neck: Supple, no JVD. Trachea is midline. No thyromegaly or lymphadenopathy. Cardiovascular: Normal S1, S2. No rubs, murmurs, or gallops. Respiratory: Lungs are clear to auscultation bilaterally. No wheezing, rhonchi, or rales. Abdomen: Obese, normal bowel sounds, soft, nontender, no guarding or rebound, no organomegaly. Extremities: No clubbing or cyanosis. There is 3+ edema of the lower extremities. There is 2+ scrotal edema. Musculoskeletal: Full passive range of motion, no joint swelling. Psychiatric: Normal mood and affect. Skin: Warm and dry, no rash. Neurologic: Cranial nerve II to XII are grossly intact. No focal neurologic deficits. Lab / Micro Data Result Diagrams: 05/05/23 05:02 05/05/23 05:02 Labs: Laboratory Results - last 24 hr 05/04/23 13:30: WBC 6.1, RBC 3.45 L, Hgb 10.8 L, Hct 33.1 L, MCV 95.9 H, MCH 31.3, MCHC 32.6, RDW Std Deviation 52.2 H, RDW Coeff of Daniel 14.9 H, Plt Count 148 L, MPV 9.8, Immature Gran % (Auto) 0.300, Neut % (Auto) 67.5, Lymph % (Auto) 16.5 L, [place] % (Auto) 10.0, Eos % (Auto) 4.4, Baso % (Auto) 1.3 H, Absolute Neuts (auto) 4.1, Absolute Lymphs (auto) 1.00, Nucleated RBC % 0 05/04/23 13:30: Sodium 137, Potassium 3.8, Chloride 105, Carbon Dioxide 29.0, Anion Gap 3 L, BUN 54 H, Creatinine 2.05 H, Estim Creat Clear Calc 43.44, Est GFR (MDRD) Af Amer 42 L, Est GFR (MDRD) Non-Af 35 L, BUN/Creatinine Ratio 26.3 H, Glucose 101, Calcium 9.5, Total Bilirubin 1.10 H, AST 14 L, ALT 10 L, Alkaline Phosphatase 105, Total Protein 8.4 H, Albumin 3.7, Globulin 4.7 H, Albumin/Globulin Ratio 0.8 L 05/04/23 13:30: Sodium Cancelled, Potassium Cancelled, Chloride Cancelled, Carbon Dioxide Cancelled, Anion Gap Cancelled, BUN Cancelled, Creatinine Cancelled, Est GFR (MDRD) Af Amer Cancelled, Est GFR (MDRD) Non-Af Cancelled, BUN/Creatinine Ratio Cancelled, Glucose Cancelled, Calcium Cancelled, Phosphorus 3.2, Magnesium 2.5 05/04/23 13:30: B-Natriuretic Peptide 206.3 H 05/04/23 22:02: POC Glucose 123 H 05/05/23 05:02: WBC 6.2, RBC 3.23 L, Hgb 10.1 L, Hct 31.4 L, MCV 97.2 H, MCH 31.3, MCHC 32.2, RDW Std Deviation 53.5 H, RDW Coeff of Daniel 15.0 H, Plt Count 157, MPV 9.5, Immature Gran % (Auto) 0.300, Neut % (Auto) 70.4 H, Lymph % (Auto) 14.4 L, [place] % (Auto) 10.4 H, Eos % (Auto) 3.7, Baso % (Auto) 0.8, Absolute Neuts (auto) 4.3, Absolute Lymphs (auto) 0.89, Nucleated RBC % 0 05/05/23 05:02: Sodium 139, Potassium 3.3 L, Chloride 105, Carbon Dioxide 28.0, Anion Gap 6, BUN 53 H, Creatinine 1.83 H, Estim Creat Clear Calc 48.66, Est GFR (MDRD) Af Amer 48 L, Est GFR (MDRD) Non-Af 40 L, BUN/Creatinine Ratio 29.0 H, Glucose 100, Calcium 9.3, Triglycerides 42, Cholesterol < 50, LDL Cholesterol TNP, VLDL Cholesterol 8, HDL Cholesterol 25 L, TSH 1.86 05/05/23 05:53: POC Glucose 102 Radiology Impression Chest X-Ray 05/04/23 16:45 IMPRESSION: Stable cardiomegaly with mild hilar prominence. Question mild vascular congestion. Electronically Signed: Mike Espino DO at 17:00 EDT Reading Location ID and State: [address] [place] [address] Tel [phone], Service support ,
[2023-05-05 09:30] VITALS: BP 148/67; PULSE 65; RESP 16; TEMP 37; O2SAT 97
[2023-05-05] MEDS: Fluoxetine HCl 40 MG CAPSULE PO (10:41)
[2023-05-05] MEDS: Carvedilol 25 MG Tablet PO (10:41)
[2023-05-05 12:20] LABS: Bedside Glucose 131 mg/dL (74-106)
[2023-05-05] MEDS: Potassium Chloride Oral Tablet 20 MEQ 40 MEQ PO (14:18)
[2023-05-05] MEDS: 0.9% Saline Lock 10 ML Syringe IV (14:19)
--- NOTE | 2023-05-05 16:06 | DS.PCM_ITS ---
Providers Date of Admission: 05/04/23 Date of Discharge: 05/05/23 Primary Care Physician: Dr. Wale Melgoza MD Consultations 05/04/23 16:26 Consult: Nephrology Routine Consulting Provider: Yamile Javier Reason for Consult: ckd 3, scrotal and leg swelling EMERGENT Consult: No MD Notified: Yes Date Notified: 05/04/23 Time Notified: 16:26 Method of Notification: ED Physician Initiated Reason For Visit: SCROTAL EDEMA Diagnosis Discharge Diagnosis (1) Scrotal edema: Status: Acute Code(s): N50.89 - Other specified disorders of the male genital organs (2) CHAO (acute kidney injury): Status: Acute Code(s): N17.9 - Acute kidney failure, unspecified Plan This is a 62-year-old gentleman being admitted for management of increased lower extremity and scrotal edema. 1. Acute congestive heart failure with preserved ejection fraction ? Patient presented with increasing bipedal edema as well as scrotal edema. His BNP was mildly elevated which is not surprising given his BMI of 53. Admitted to a monitored bed managed with strict input and output, daily weight, low- sodium diet as well as diuretics echo ordered for EF assessment ? Echo result as below The estimated ejection fraction is 65 %. Unable to assess diastolic dysfunction. The left atrium is severely enlarged. Mild (1+) mitral valve insufficiency. Mildly dilated right ventricle. 2. Paroxysmal A-fib ? Rate controlled 3. Acute kidney injury ? Superimposed on chronic kidney disease stage III monitoring with daily BMPs 4. Dyslipidemia -Patient is on statin therapy, continued at home dose 5. Hypertension - Blood pressure controlled, home medications continued with dose adjustment as needed 6. Diabetes mellitus type 2 ? Managed with diet only please on Accu-Cheks before meals and at bedtime with sliding scale coverage 7. Class III obesity with a BMI of 53 ? Complicating patient's care weight loss advised 8. DVT prophylaxis -SC heparin 5000 unit Q8 Time spent in the patient's overall evaluation,decision-making process, review of diagnostic data, adjustment of management, discussion with other providers, nursing nursing and ancillary staff involved in patient's care documentation, 50 Minutes Medications at Discharge Home Medications carvedilol 25 mg tablet (Coreg) 25 mg PO BID HEART 07/06/21 fluoxetine 40 mg capsule 40 mg PO DAILY DEPRESSION 08/17/21 lisinopril 40 mg tablet 40 mg PO DAILY BP 07/06/21 metolazone 2.5 mg tablet 2.5 mg PO DAILY FLUID 07/06/21 potassium chloride 10 mEq tablet,extended release 10 meq PO DAILY 07/06/21 spironolactone 25 mg tablet 25 mg PO DAILY PRN PRN fluid 07/06/21 torsemide 100 mg tablet 100 mg PO DAILY FLUID 07/06/21 atorvastatin 40 mg tablet 40 mg PO DAILY CHOLESTEROL 05/04/23 Hospital Course Summary of Care Provided Minutes Spent on Discharge: 50 Physical Exam Narrative GENERAL: cooperative HEENT: Atraumatic; normocephalic EYES; Anicteric, Normal Conjunctiva NECK; supple, normal thyroid, RESPIRATORY: Diminished to auscultation CARDIOVASCULAR: Regular S1 S2, GI: soft, normoactive bowel sounds, : Scrotal edema EXTREMITIES: Bipedal edema MUSCULOSKELETAL: no muscle wasting NEURO: Awake; no lateralizing signs. SKIN: No Rash PSYCH; Flat affect Weight / BMI Weight Weight: 190.4 kg Body Mass Index (BMI) 52.9 ABG / Lab / Microbiology Data Result Diagrams: 05/05/23 05:02 05/05/23 05:02 Laboratory: Laboratory Results - last 24 hr 05/04/23 13:30: Sodium Cancelled, Potassium Cancelled, Chloride Cancelled, Carbon Dioxide Cancelled, Anion Gap Cancelled, BUN Cancelled, Creatinine Cancelled, Est GFR (MDRD) Af Amer Cancelled, Est GFR (MDRD) Non-Af Cancelled, BUN/Creatinine Ratio Cancelled, Glucose Cancelled, Calcium Cancelled, Phosphorus 3.2, Magnesium 2.5 05/04/23 13:30: B-Natriuretic Peptide 206.3 H 05/04/23 22:02: POC Glucose 123 H 05/05/23 05:02: WBC 6.2, RBC 3.23 L, Hgb 10.1 L, Hct 31.4 L, MCV 97.2 H, MCH 31.3, MCHC 32.2, RDW Std Deviation 53.5 H, RDW Coeff of Daniel 15.0 H, Plt Count 157, MPV 9.5, Immature Gran % (Auto) 0.300, Neut % (Auto) 70.4 H, Lymph % (Auto) 14.4 L, [place] % (Auto) 10.4 H, Eos % (Auto) 3.7, Baso % (Auto) 0.8, Absolute Neuts (auto) 4.3, Absolute Lymphs (auto) 0.89, Nucleated RBC % 0 05/05/23 05:02: Sodium 139, Potassium 3.3 L, Chloride 105, Carbon Dioxide 28.0, Anion Gap 6, BUN 53 H, Creatinine 1.83 H, Estim Creat Clear Calc 48.66, Est GFR (MDRD) Af Amer 48 L, Est GFR (MDRD) Non-Af 40 L, BUN/Creatinine Ratio 29.0 H, Glucose 100, Calcium 9.3, Triglycerides 42, Cholesterol < 50, LDL Cholesterol TNP, VLDL Cholesterol 8, HDL Cholesterol 25 L, TSH 1.86 05/05/23 05:53: POC Glucose 102 05/05/23 12:01: POC Glucose 131 H Radiography Diagnostic Testing: Radiology Impression Chest X-Ray 05/04/23 16:45 IMPRESSION: Stable cardiomegaly with mild hilar prominence. Question mild vascular congestion. Electronically Signed: Mike Espino DO at 17:00 EDT Reading Location ID and State: [address] [place] [address] Tel [phone], Service support , Echocardiogram 05/05/23 05:55 Interpretation Summary The estimated ejection fraction is 65 %. Unable to assess diastolic dysfunction. The left atrium is severely enlarged. Mild (1+) mitral valve insufficiency. Mildly dilated right ventricle. Ordering Physician: Deniz Maharaj Referring Physician: MD Abad Wale Performed By: Ronel Solano RCS D/C Instructions Discharge Diet: 8 Cup Fluid Restriction and 2000 mg Sodium Diet Discharge Activity: Return to Normal Activity Call your doctor if you observe: Fever of 101 or Higher, Shortness of breath, Fainting spells and Chest pain Meaningful Use Info Meaningful Use Diagnoses (Choose all that apply): CHF CHF MADINA/ARB ordered at discharge?: No Reason MADINA/ARB not ordered?: Not indicated and Worsening renal disease Documented LVEF (%): 65 Discharge Plan Admission Admit Date/Time: 05/04/23 16:06 Attending Provider: Junior Orellana Primary Care Provider: Wale Melgoza Consulting Providers: Yamile Javier ; Deniz Maharaj Discharge Orders/Prescriptions Prescriptions: Continued fluoxetine 40 mg Capsule 40 mg PO DAILY metolazone 2.5 mg Tablet 2.5 mg PO DAILY carvedilol [Coreg] 25 mg Tablet 25 mg PO BID potassium chloride 10 mEq Tablet Extended Release 10 meq PO DAILY spironolactone 25 mg Tablet 25 mg PO DAILY PRN PRN (Reason: fluid) torsemide 100 mg Tablet 100 mg PO DAILY lisinopril 40 mg Tablet 40 mg PO DAILY atorvastatin 40 mg Tablet 40 mg PO DAILY Discontinued ibuprofen 800 mg tablet 800 mg PO Q8H indomethacin 50 mg capsule 50 mg PO DAILY PRN PRN (Reason: GOUT) Referrals / Follow Up: Wale Melgoza MD [Primary Care Provider] - Within 1 Week Yamile Javier MD [Med Staff - Consulting] - Within 2 Weeks Disposition Disposition (needs filled in before D/C Order can be placed): Home, Self Care Charges/Coding Visit Charges Inpatient E&M: 42539 Disch Hosp >30min
[2023-05-05 16:21] VITALS: BP 148/67; PULSE 65; RESP 16; TEMP 37; O2SAT 97
--- NOTE | 2023-05-05 16:40 | CASEMGMT ---
RN EMERSON Face to Face with patient for initial transition planning/care coordination assessment. RN CM introduced self and role at [facility]. Patient sitting in chair, alert and oriented, son at bedside. Patient willing to participate in assessment and is able to answer all questions appropriately. Care providers, pharmacy, and demographics verified. Patient wishes to discharge home, denies need for home health at this time. Patient states he has no further needs or concerns at this time. CM to follow for discharge planning needs that may arise. PCP: Abad Specialists: none Preferred Pharmacy: [facility] Insurance: MMO Prescription Benefit: yes Living Will/HPOA: none LNOK: sons Living Arrangements: Patient lives with son in a first floor apartment with no steps to enter. Patient states he is independent at home. Transportation: self, son DME/HHC: Patient denies DME in the home. Patient denies previous HHC or SNF. Disposition Plan: Patient to discharge home with family support and follow-up plans in place. Breonna OROURKE, RN, CM
== END 2023-05-05 17:10 | disposition home or self-care (01) | DRG 682 ==
LOC: ED 15:55 → PCU 16:24
PROVIDERS: Admitting Provider Internal Medicine; Emergency Provider Emergency Medicine; PCP Family Medicine; Visit Provider Internal Medicine
DX: N17.9 Acute kidney failure, unspecified (principal); I50.31 Acute diastolic (congestive) heart failure; I13.0 Hypertensive heart and chronic kidney disease with heart failure and stage 1 through stage 4 chronic kidney disease, or unspecified chronic kidney disease; Z68.43 Body mass index [BMI] 50.0-59.9, adult; E11.22 Type 2 diabetes mellitus with diabetic chronic kidney disease; E66.01 Morbid (severe) obesity due to excess calories; I48.0 Paroxysmal atrial fibrillation; N18.32 Chronic kidney disease, stage 3b; E78.5 Hyperlipidemia, unspecified; I34.0 Nonrheumatic mitral (valve) insufficiency; E87.6 Hypokalemia; R60.1 Generalized edema; N50.89 Other specified disorders of the male genital organs; Z66 Do not resuscitate; Z87.891 Personal history of nicotine dependence; Z51.5 Encounter for palliative care; N50.9 Disorder of male genital organs, unspecified; Z79.1 Long term (current) use of non-steroidal anti-inflammatories (NSAID); G89.29 Other chronic pain
CPT/HCPCS: 36415; 71046; 80048; 80053; 80061; 82962; 83735; 83880; 84100; 84443; 85025; 93005; 93306; 94668; 99252; 99284; Q9957; A4216; C8929; G0463; J1940

== ENCOUNTER 2024-03-29 13:10 | Inpatient (IN) | payer OTHER, SELFPAY ==
[2024-03-29] VITALS (7 sets, daily range): BP systolic 112–160; BP diastolic 63–89; PULSE 60–80; RESP 14–18; TEMP 36.2–36.9; O2SAT 94–100; BMI 43.2
--- NOTE | 2024-03-29 14:59 | EDS_ITS ---
HPI <GRISELDA Hernandez - Last Filed: 03/29/24 20:20> History of Present Illness Chief Complaint: Weakness Narrative Narrative: Patient presenting today due to bilateral lower extremity edema. 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 Last Monday he began having spasms in his mid back and pain in his bilateral lower extremities and hips, he did not want to have to use the bathroom frequently so he stopped taking his diuretics over the weekend. He reports that last week he was not taking them every day either. He has been intermittently taking them this week, he did not take them today. He reports that now his legs are swollen and he is having a difficult time ambulating because of that. He denies any fevers, chills, shortness of breath and chest pain. PFSH <GRISELDA Hernandez - Last Filed: 03/29/24 20:20> PFSH Medical History Atrial fibrillation Chronic pain CKD (chronic kidney disease) Diabetes Diabetes mellitus type 2, diet-controlled Former smoker Hypertension Kidney disease Non-smoker Home Medications carvedilol 25 mg tablet (Coreg) 25 mg PO BID HEART 07/06/21 [History Last Taken 05/03/23] fluoxetine 40 mg capsule 40 mg PO DAILY DEPRESSION 07/06/21 [History Last Taken 05/03/23] lisinopril 40 mg tablet 20 mg PO DAILY BP 07/06/21 [History Last Taken 05/03/23] metolazone 2.5 mg tablet 2.5 mg PO DAILY FLUID 07/06/21 [History Last Taken 03/27/24] potassium chloride 10 mEq tablet,extended release 20 meq PO DAILY 07/06/21 [History Last Taken 05/03/23] spironolactone 25 mg tablet 25 mg PO DAILY PRN fluid 07/06/21 [History Last Taken 03/27/24] torsemide 100 mg tablet 100 mg PO DAILY FLUID 07/06/21 [History Last Taken 03/27/24] atorvastatin 40 mg tablet 40 mg PO DAILY CHOLESTEROL 05/04/23 [History Last Taken 05/03/23] fluoxetine 10 mg capsule 10 mg PO DAILY PRN MOOD 03/29/24 [History Last Taken Unknown] Allergy/AdvReac Type Severity Reaction Status Date / Time codeine Allergy Swelling Verified 03/29/24 13:12 Surgical History History of appendectomy History of elbow surgery History of exploratory laparotomy (~05/2022) History of hernia repair (~05/2022) Social History Smoking Status: Former smoker ROS <GRISELDA Hernandez - Last Filed: 03/29/24 20:20> ROS ED Constitutional Constitutional ED: Denies chills or fever(s) Cardiovascular Cardiovascular: Denies chest pain Respiratory/Chest Respiratory/Chest: Denies cough or dyspnea Gastrointestinal Gastrointestinal: Denies abdominal pain, nausea or vomiting Genitourinary Genitourinary ED: Denies dysuria, hematuria or urinary frequency Musculoskeletal Musculoskeletal: Reports arthralgias and back pain Integumentary Denies rash Neurologic Neurologic: Denies paresthesias EXAM <GRISELDA Hernandez - Last Filed: 03/29/24 20:20> Physical Exam Const Vital Signs: 03/29/24 13:15 03/29/24 15:11 03/29/24 15:11 Temperature 98 F Temperature Source Temporal Pulse Rate 60 71 Respiratory Rate 14 16 Respiratory Effort Normal Respiratory Pattern Normal Blood Pressure 130/63 H 158/89 H Blood Pressure Mean 85 112 Pulse Ox 100 99 Oxygen Delivery Method Room Air Room Air 03/29/24 16:18 03/29/24 16:48 Temperature 98.2 F Temperature Source Pulse Rate 80 71 Respiratory Rate 16 16 Respiratory Effort Respiratory Pattern Blood Pressure 118/66 112/68 Blood Pressure Mean 83 82 Pulse Ox 94 100 Oxygen Delivery Method Room Air Positive well nourished, well developed and no apparent distress General Appearance ED: well developed HEENT Reports normocephalic and head/scalp atraumatic Mouth ED: Yes moist mucous membranes normal Eyes PERRL and EOMs intact bilaterally Neck full ROM and supple Chest Wall inspection of chest normal Resp normal respiratory effort and clear to auscultation bilaterally Cardio regular rate and regular rhythm GI soft to palpation, non-tender, non-distended and no masses Back/Spine normal ROM and normal to inspection Extremity normal to inspection and full ROM Extremity Narrative: Bilateral lower extremity 4+ pitting edema. Neuro oriented x3, CN's II-XII intact bilaterally, moves all extremities, no focal motor deficits and no sensory deficits noted Sensorium / Orientation: awake and alert Psych mental status grossly normal and thought process normal Skin no rashes or lesions noted and no wounds <Dr. Len Marks MD - Last Filed: 03/29/24 16:42> Physical Exam Const Vital Signs: 03/29/24 13:15 03/29/24 15:11 03/29/24 15:11 Temperature 98 F Temperature Source Temporal Pulse Rate 60 71 Respiratory Rate 14 16 Respiratory Effort Normal Respiratory Pattern Normal Blood Pressure 130/63 H 158/89 H Blood Pressure Mean 85 112 Pulse Ox 100 99 Oxygen Delivery Method Room Air Room Air 03/29/24 16:18 03/29/24 16:48 Temperature 98.2 F Temperature Source Pulse Rate 80 71 Respiratory Rate 16 16 Respiratory Effort Respiratory Pattern Blood Pressure 118/66 112/68 Blood Pressure Mean 83 82 Pulse Ox 94 100 Oxygen Delivery Method Room Air MDM <GRISELDA Hernandez - Last Filed: 03/29/24 20:20> MDM MDM Narrative Medical decision making narrative: Patient presenting with bilateral lower extremity lymphedema that has been worse over the past several days as he has been noncompliant with his diuretics recently. 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 He is not short of breath. He does have bilateral lower extremity pitting edema. He will be given a dose of Lasix here and basic labs will be obtained. He was given Tylenol for pain. He does appear to have an CHAO, his creatinine is 3.28, BUN 67, this is elevated from his baseline. Given this, I do feel he would benefit from admission to the hospital, spoke with the hospitalist and he will be admitted in stable condition. Lab Data Labs: Laboratory Results - last 24 hr 03/29/24 15:24 WBC 7.0 RBC 4.06 L Hgb 12.2 L Hct 36.8 L MCV 90.6 MCH 30.0 MCHC 33.2 RDW Std Deviation 49.3 H RDW Coeff of Daniel 14.8 H Plt Count 253 MPV 8.2 Immature Gran % (Auto) 0.300 Neut % (Auto) 66.3 Lymph % (Auto) 16.[address] [facility] % (Auto) 11.1 H Eos % (Auto) 5.1 H Baso % (Auto) 1.1 H Absolute Neuts (auto) 4.7 Absolute Lymphs (auto) 1.13 Nucleated RBC % 0 Sodium 137 Potassium 3.7 Chloride 99 Carbon Dioxide 33.0 H Anion Gap 5 BUN 67 H Creatinine 3.28 H Est GFR (MDRD) Af Amer 25 L Est GFR (MDRD) Non-Af 20 L BUN/Creatinine Ratio 20.4 H Glucose 116 H Calcium 10.0 B-Natriuretic Peptide 91.5 <Dr. Len Marks MD - Last Filed: 03/29/24 16:42> [facility] Lab Data Attestation: I reviewed the patient's lab results. Labs: Laboratory Results - last 24 hr 03/29/24 15:24 WBC 7.0 RBC 4.06 L Hgb 12.2 L Hct 36.8 L MCV 90.6 MCH 30.0 MCHC 33.2 RDW Std Deviation 49.3 H RDW Coeff of Daniel 14.8 H Plt Count 253 MPV 8.2 Immature Gran % (Auto) 0.300 Neut % (Auto) 66.3 Lymph % (Auto) 16.[address] % (Auto) 11.1 H Eos % (Auto) 5.1 H Baso % (Auto) 1.1 H Absolute Neuts (auto) 4.7 Absolute Lymphs (auto) 1.13 Nucleated RBC % 0 Sodium 137 Potassium 3.7 Chloride 99 Carbon Dioxide 33.0 H Anion Gap 5 BUN 67 H Creatinine 3.28 H Est GFR (MDRD) Af Amer 25 L Est GFR (MDRD) Non-Af 20 L BUN/Creatinine Ratio 20.4 H Glucose 116 H Calcium 10.0 B-Natriuretic Peptide 91.5 Treatment and Re-Evaluation Comments:: I have personally performed a face to face assessment of the patient and have reviewed the FRANCISCO Note. I performed a substantive portion of the visit including all aspects of the following. My strong findings include: History is significant increased bilateral lower extremity edema causing pain and difficulty with mobility. States he stopped taking his diuretic a week ago when he had some pain around his waist, that is gone and when he went to take his torsemide again, it is not causing any urination, which is unusual for him. He continues to swell. No dyspnea with exertion orthopnea. No chest pains. No fevers or chills. Exam is 4+ bilateral lower extremity symmetric edema without signs of cellulitis, calf tenderness, or focal asymmetry. Lungs clear to auscultation throughout. Heart regular no tachycardia. No JVD. Obesity limits exam to some degree. Neurovascular intact distally lower extremities. Medical Decison Making obtain labs along with a dose of IV Lasix and reeval. He has CHAO, likely explaining why the diuretic is not resulting in urination. His urologist is at [facility]. Will admit for further evaluation and treatment. Other additions or changes: [None] Discharge Plan Dx/Rx/DC Orders Clinical Impression: CHAO (acute kidney injury), Chronic kidney disease, stage 3b, Bilateral lower extremity edema Disposition Disposition: Acute Care Hospital [facility] Discharge Date/Time: 03/29/24 18:29
[2024-03-29] MEDS: Furosemide 40 MG/4 ML Vial IV (15:16)
[2024-03-29] MEDS: Acetaminophen 325 MG Tablet 650 MG PO ×2 (15:16→21:04)
[2024-03-29 15:28] LABS: Absolute Lymphocyte Count 1.13 X10^3/uL (0.83-4.51); Absolute Neutrophil Count 4.7 X10^3/uL (2.0-7.7); Basophil# 0.08 X10^3/uL; Basophil% 1.1 % (0-1); Eosinophil# 0.36 X10^3/uL; Eosinophils% 5.1 % (0-5); Hematocrit 36.8 % (40-54); Hemoglobin 12.2 g/dL (13.0-16.5); Lymphocyte # 1.13 X10^3/ul (0.83-4.51); Lymphocyte % 16.1 % (19-41); Mean Corp Hgb Conc 33.2 g/dL (32-36); Mean Corpuscular Volume 90.6 fL (80-94); Mean Platelet Vol. 8.2 fl (6.2-12.0); Monocyte# 0.78 X10^3/uL; Monocyte% 11.1 % (0-10); NRBC Flagged by Analyzer 0 % (0-5); Neutrophil # 4.66 X10^3/uL (2.7-7.7); Neutrophil % 66.3 % (47-70); Platelet Count 253 K/mm3 (150-450); RBC Distribution Width CV 14.8 % (11.6-14.6); RBC Distribution Width SD 49.3 fl (35.1-43.9); Red Blood Count 4.06 M/mm3 (4.6-6.2)
[2024-03-29 15:50] LABS: Anion Gap 5 (5-15); BUN 67 mg/dL (7-18); BUN/Creat Ratio 20.4 RATIO (10-20); Chloride 99 mmol/L (98-107); Creatinine, Serum 3.28 mg/dL (0.70-1.30); EST Glomerular Filtration Rate 20 mL/min (>60); Est Glom Filt Rate - Afr Amer 25 mL/min (>60); Glucose 116 mg/dL (74-106); Potassium 3.7 mmol/L (3.5-5.1); Sodium Level 137 mmol/L (136-145)
--- NOTE | 2024-03-29 16:42 | ED.RN ---
1511: attempted to place patient in gown prior to IV placement, patient refused.
--- NOTE | 2024-03-29 17:00 | HP.PCM.HOS_ITS ---
HPI - General General Date of Admission: 03/29/24 Date of Service: 03/29/24 Chief Complaint: Worsening lower extremity swelling HPI Narrative CHERYL HERRERA, is a 63 M who presented to [facility] ED on 03/29/2024 with worsening lower extremity swelling. Patient seen at bedside in the ED, son present. Patient was sitting up comfortably in bed, conversing normally, in no acute distress. He was breathing comfortably on room air at rest. Patient has known history of HFpEF and CKD stage III. He was last hospitalized here in April 2023. Presented at that time with worsening lower extremity and scrotal edema. Was diagnosed with CHF exacerbation. Echo showed EF 65%, unable to assess diastolic dysfunction, LA severely enlarged, mildly dilated RV. Improved quickly with IV diuretics and was discharged home without issue. 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 Was on a consistent medication regimen for heart failure after April. Patient notes that last Tuesday 03/20 he had an episode of A-fib with RVR. Has history of A-fib but had not had any episodes of A-fib in many years. He had significant palpitations with racing heart rate at rest, had a monitor of some sort at home and found that his heart rate was in the 160s. He states that stayed in the 150s to 160s for about 30 minutes, then resolved on its own. States his blood pressure was in the 100s over 60s initially when he went into A-fib and he had a few readings in the 80s over 40s during that time. He denies any lightheadednes s or dizziness with the episode. He recently established with a tree and shrub technician with [facility] in [place], saw him in the office about 3 weeks ago. He had basic labs drawn just prior to that visit. Was able to review the nephrology note in [facility]. Patient noted worsening lower extremity swelling to the tree and shrub technician at that time. 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 Prior Authorization Nurse put him back on to rsemide 100 mg daily. Patient previously had metolazone and spironolactone on as needed for worsening lower extremity swelling, and the tree and shrub technician recommended that these be held. His creatinine was 1.91 prior to that visit and this appeared stable from previous creatinine values last year. Had renal/bladder ultrasound done per the tree and shrub technician request on 03/18 that showed a right renal cyst but otherwise no hydronephrosis or concern for bladder outlet obstruction. Since the episode of A-fib with RVR, patient states he again has not been taking the torsemide. Had decreased urine output over the next week and 2 days ago he tried taking the torsemide again as well as doses of metolazone and spironolactone but he had no improvement in urine output with this. Has noticed that his lower extremity swelling has continued to get worse. Has also noticed some scrotal edema and mild abdominal fullness with decreased appetite. He has not been walking around much due to his leg pain, has not noticed any significant shortness of breath with exertion. Denies any cough or sputum production. Vitals in ED with normal sinus rhythm in the 70s, normotensive, satting in high 90s on room air at rest. CBC with hemoglobin 12.2 (at baseline), otherwise benign. BMP with creatinine 3.28 (baseline 1.8-1.9), BUN 67, bicarb 33. BNP only 91. Chest x-ray with no gross infiltration or pulmonary edema. Will be admitted for further management. PFSH Medical History Atrial fibrillation Chronic pain CKD (chronic kidney disease) Diabetes Diabetes mellitus type 2, diet-controlled Former smoker Hypertension Kidney disease Non-smoker Home Medications carvedilol 25 mg tablet (Coreg) 25 mg PO BID HEART 07/06/21 [History Last Taken 05/03/23] fluoxetine 40 mg capsule 40 mg PO DAILY DEPRESSION 07/06/21 [History Last Taken 05/03/23] lisinopril 40 mg tablet 20 mg PO DAILY BP 07/06/21 [History Last Taken 05/03/23] metolazone 2.5 mg tablet 2.5 mg PO DAILY FLUID 07/06/21 [History Last Taken 03/27/24] potassium chloride 10 mEq tablet,extended release 20 meq PO DAILY 07/06/21 [History Last Taken 05/03/23] spironolactone 25 mg tablet 25 mg PO DAILY PRN fluid 07/06/21 [History Last Taken 03/27/24] torsemide 100 mg tablet 100 mg PO DAILY FLUID 07/06/21 [History Last Taken 03/27/24] atorvastatin 40 mg tablet 40 mg PO DAILY CHOLESTEROL 05/04/23 [History Last Taken 05/03/23] fluoxetine 10 mg capsule 10 mg PO DAILY PRN MOOD 03/29/24 [History Last Taken Unknown] Allergy/AdvReac Type Severity Reaction Status Date / Time codeine Allergy Swelling Verified 03/29/24 13:12 Surgical History History of appendectomy History of elbow surgery History of exploratory laparotomy (~05/2022) History of hernia repair (~05/2022) Social History Smoking Status: Former smoker ROS Constitutional Constitutional: Reports change in weight and fatigue; Denies chills, fever(s) or weakness Cardiovascular Cardiovascular: Reports edema; Denies chest pain, dyspnea on exertion, lightheadedness, orthopnea or palpitations Respiratory/Chest Respiratory/Chest: Denies cough, productive cough, shortness of breath at rest or wheezing Gastrointestinal Gastrointestinal: Denies abdominal pain, nausea or vomiting Genitourinary Genitourinary: Denies dysuria Musculoskeletal Musculoskeletal: Denies back pain Neurologic Neurologic: Denies dizziness, focal weakness, headache(s), numbness or tingling Vital Signs Vital Signs Vital Signs: 03/29/24 13:15 03/29/24 15:11 03/29/24 15:11 Temperature 98 F Temperature Source Temporal Pulse Rate 60 71 Respiratory Rate 14 16 Respiratory Effort Normal Respiratory Pattern Normal Blood Pressure 130/63 H 158/89 H Blood Pressure Mean 85 112 Pulse Ox 100 99 Oxygen Delivery Method Room Air Room Air 03/29/24 16:18 03/29/24 16:48 Temperature 98.2 F Temperature Source Pulse Rate 80 71 Respiratory Rate 16 16 Respiratory Effort Respiratory Pattern Blood Pressure 118/66 112/68 Blood Pressure Mean 83 82 Pulse Ox 94 100 Oxygen Delivery Method Room Air Physical Exam Const alert, oriented x3 and no apparent distress Constitutional Narrative: Middle-age male, morbidly obese, sitting up comfortably in bed, conversing normally, in no acute distress. General Appearance: cooperative and comfortable HEENT normocephalic, head/scalp atraumatic, hearing grossly normal bilaterally and nasal mucous membranes and turbinates normal Eyes PERRL, EOMs intact bilaterally and conjunctivae normal Neck full ROM and no JVD Lymph Lymphatic: no lymphadenopathy noted Chest inspection of chest normal Resp normal respiratory effort and no use of accessory muscles Resp Narrative: Breathing ultimately on room air at rest with oxygen saturations in the high 90s. Good breath sounds bilaterally throughout, no wheezing or crackles noted. Cardio regular rate, regular rhythm, no murmurs and peripheral pulses 2+ throughout GI normal to inspection, nondistended, normoactive bowel sounds, soft to palpation, non-tender and non-distended Negative for no CVA tenderness Narrative: Mild scrotal edema with scrotal erythema noted particularly on right side of scrotum. No tenderness to palpation. Bladder / Kidney Exam: No bladder normal to palpation Back/Spine normal ROM Extremity Extremity Narrative: +1-2 nonpitting lower extremity edema noted. Chronic venous stasis changes bilaterally. Skin no rashes or lesions noted Neuro moves all extremities and no focal motor deficits Speech: speech normal Psych mental status grossly normal Results Lab / Micro Data 03/29/24 15:24 03/29/24 15:24 Labs: Laboratory Results - last 24 hr 03/29/24 15:24: WBC 7.0, RBC 4.06 L, Hgb 12.2 L, Hct 36.8 L, MCV 90.6, MCH 30.0, MCHC 33.2, RDW Std Deviation 49.3 H, RDW Coeff of Daniel 14.8 H, Plt Count 253, MPV 8.2, Immature Gran % (Auto) 0.300, Neut % (Auto) 66.3, Lymph % (Auto) 16.1 L, [place] % (Auto) 11.1 H, Eos % (Auto) 5.1 H, Baso % (Auto) 1.1 H, Absolute Neuts (auto) 4.7, Absolute Lymphs (auto) 1.13, Nucleated RBC % 0, Sodium 137, Potas sium 3.7, Chloride 99, Carbon Dioxide 33.0 H, Anion Gap 5, BUN 67 H, Creatinine 3.28 H, Est GFR (MDRD) Af Amer 25 L, Est GFR (MDRD) Non-Af 20 L, BUN/Creatinine Ratio 20.4 H, Glucose 116 H, Calcium 10.0 Assessment & Plan Assessment/Plan (1) CHAO (acute kidney injury): (2) Chronic kidney disease, stage 3b: (3) Bilateral lower extremity edema: PLAN: Plan Patient is a 63-year-old male who presented [facility] ED on 03/20 with worsening lower extremity swelling. 1. CHAO on CKD stage III ? Admit under inpatient status to PCU. Nephrology consulted. Creatinine 3.28 on admit, baseline creatinine around 1.8-1.9. Highest suspicion is for ATN due to hypoperfusion after a recent episode of A-fib with RVR as noted below. Also may have worsening blood pressures due to overmedication causing renal hypoperfusion. Reported worsening lower extremity swelling but BNP normal, chest x-ray with no volume overload so have minimal concern for heart failure exacerbation. Patient reports decreased urine output over the past week or so since that event. Recent renal/bladder ultrasound on 03/18 with no hydronephrosis, unlikely postobstructive. Will obtain urine sodium and creatinine to calculate FeNa. Given 1 dose of IV Lasix in the ED, will restart home torsemide 100 mg daily tomorrow. Hold home lisinopril, metolazone, spironolactone, potassium supplement. Trend daily BMP and urine output. 2. Concern for recurrent A-fib with RVR ? History of A-fib with RVR noted in chart but reportedly had not had episodes in many years until recent episode last week, when he had significant palpitations with the episode. However, I have concern that he may be going in and out of A-fib more frequently than he realizes. Echo from 04/2023 showed severely dilated LA which could be indicative of frequent A-fib. Suspect undiagnosed MARY as noted below which would make him at high risk for having recurrent A-fib with RVR. Will continue Coreg at decreased dose of 6.25 mg twice daily. Continuous cardiac monitoring ordered. Heparin subcu for DVT prophylaxis, will not start anticoagulant at this time. 3. Worsening metabolic alkalosis, concern for undiagnosed MARY ? Bicarb 33 on admit. Patient morbidly obese, no documented history of MARY but certainly has risk factors for MARY. Trend daily BMP. Monitor for oxygen desaturations overnight. Would recommend sleep study outpatient postdischarge. 4. Mild scrotal edema with right-sided scrotal erythema ? Noted on exam in the ED. Patient reports previous scrotal edema similar to this. No significant tenderness to palpation. Suspect patient may have a tinea infection of the scrotum, will treat with topical antifungal agent and monitor for improvement. 5. Chronic lower extremity lymphedema ? Chronic venous stasis changes noted on exam. No pitting edema noted, suspect edema is more chronic in nature. Continuing home torsemide as noted above. 6. History of HFpEF with moderate pulmonary hypertension, hypertension, hyperlipidemia ? Last echo in 04/2023 with EF 65%, unable to assess diastolic dysfunction, mildly dilated RV, severely enlarged LA, pulmonary artery systolic pressure 55 mmHg, no significant valve disease. Low concern for heart failure exacerbation as noted above but given softer blood pressures recently, will repeat echo now to assess for any new changes. Medication management as noted above. Chronic medical conditions: ? Morbid obesity: Encouraged lifestyle modifications. Complicates hospital course, care and prognosis. ? Depression: Stable. Continue home fluoxetine. DVT prophylaxis: Heparin subcu CODE STATUS: DNR CCA, DNI Expected disposition: Home, 2 to 3 days Total clinical time spent by myself addressing the patient's medical issues, reviewing all the data, and collaborating with patient's care team: 55 minutes. Charges/Coding Visit Charges Inpatient E&M: 64601 Init Hosp L2
--- NOTE | 2024-03-29 17:08 | RAD_ITS ---
STUDY: X-RAY CHEST REASON FOR EXAM: Male, 63 years old. eval for CHF/volume overload TECHNIQUE: AP portable COMPARISON: None. FINDINGS: Elevated right hemidiaphragm and minor subsegmental atelectasis.. There is no demonstrated pleural abnormality. Heart appears mildly enlarged though exaggerated by radiographic technique.. Normal mediastinum and luz. Normal visualized pulmonary arteries. Normal visualized aortic arch and descending thoracic aorta. Normal visualized thoracic spine. Normal visualized ribs, clavicles, and shoulders. There is no demonstrated abnormality of the visualized soft tissue structures of the upper abdomen. RAD/Chest 1 View (Portable) IMPRESSION: Elevated right hemidiaphragm and minor basilar atelectasis. No gross infiltration or pulmonary edema Electronically Signed: Lv Galaviz MD at 17:44 EDT ,
[2024-03-29 17:45] LABS: BNP,B-Type NATRIURETIC PEPTIDE 91.5 pg/mL (0-100)
--- NOTE | 2024-03-29 18:31 | ECHOD_ITS ---
Reason For Study: CHF Procedure This was a 2D Doppler, Color Flow transthoracic echocardiogram. Exam performed portable in patient room. Left Ventricle Normal LV size. Mild concentric left ventricular hypertrophy. The left ventricular ejection fraction is 65 %. At least grade 2 diastolic dysfunction. Right Ventricle Normal right ventricle. Atria There is severe biatrial dilatation. Mitral Valve Mild mitral annular calcification. Mild (1+) mitral valve insufficiency. Tricuspid Valve Mild tricuspid valve insufficiency. Right ventricular systolic pressure estimated to be 68 mmHg. Severe pulmonary hypertension. Aortic Valve Trisinus/trileaflet aortic valve. Pulmonic Valve The pulmonic valve is not well visualized. Trivial pulmonic valve insufficiency. Great Vessels Normal sized aortic root. Pericardium/Pleural No pericardial effusion. MMode/2D Measurements & Calculations LVIDd: 5.6 cm IVSd: 1.2 cm Ao root diam: 3.2 cm LVIDs: 3.5 cm LVPWd: 1.2 cm RVDd: 4.7 cm FS: 37.9 % LAV(MOD-bp): 96.4 ml LVAd ap4: 25.1 cm2 SV(MOD-sp4): 44.3 ml LAV(MOD-bp) Indexed: 35.9 ml/m2 LVLd ap4: 7.9 cm LAV(MOD-sp2): 109.0 ml EDV(MOD-sp4): 68.4 ml LAV(MOD-sp4): 83.1 ml EDV(sp4-el): 68.0 ml LVAs ap4: 13.5 cm2 LVLs ap4: 6.7 cm ESV(MOD-sp4): 24.0 ml ESV(sp4-el): 23.1 ml EF(MOD-sp4): 64.9 % EF(sp4-el): 66.1 % SV(sp4-el): 44.9 ml LA A4 area: 28.2 cm2 LA dimension(2D): 6.1 cm RA A4 area: 26.2 cm2 TAPSE: 2.1 cm Doppler Measurements & Calculations MV E max albaro: 138.6 cm/sec Lat Peak E' Albaro: 8.3 cm/sec Med Peak E' Albaro: 6.0 cm/sec E/E' lat: 16.7 E/E' med: 23.1 Ao V2 max: 176.6 cm/sec LV V1 max: 113.9 cm/sec PA V2 max: 102.5 cm/sec Ao max P.5 mmHg LV V1 max P.3 mmHg Ao V2 mean: 120.6 cm/sec Ao mean P.7 mmHg Ao V2 VTI: 40.5 cm TR max albaro: 364.2 cm/sec TR max P.1 mmHg ECHO/Echo Complete Interpretation Summary Mild concentric left ventricular hypertrophy. The left ventricular ejection fraction is 65 %. At least grade 2 diastolic dysfunction. There is severe biatrial dilatation. Mild (1+) mitral valve insufficiency. Mild tricuspid valve insufficiency. Severe pulmonary hypertension Ordering Physician: Genaro Barth Referring Physician: Wale Melgoza Performed By: Rosy Saini, ISMAEL, RVT
[2024-03-29] MEDS: Ketoconazole Cream 1 APPLIC TOPICAL (21:02)
[2024-03-29] MEDS: 0.9% Saline Lock 10 ML Syringe IV (21:04)
[2024-03-29] MEDS: Carvedilol 6.25 MG Tablet PO (21:04)
[2024-03-29] MEDS: Heparin Injection (Vial) 5,000 UNIT/ML VIAL 5000 UNIT SC (21:04)
[2024-03-29 22:48] LABS: Urine Sodium 93 mmol/L (Not Establ.)
[2024-03-30] VITALS (10 sets, daily range): BP systolic 100–117; BP diastolic 46–62; PULSE 45–78; RESP 16–18; TEMP 36.1–36.6; O2SAT 95–99; BMI 43.4
[2024-03-30] MEDS: Heparin Injection (Vial) 5,000 UNIT/ML VIAL 5000 UNIT SC ×3 (05:51→21:19)
[2024-03-30] MEDS: Acetaminophen 325 MG Tablet 650 MG PO ×2 (06:57→20:06)
[2024-03-30 08:04] LABS: Hemoglobin 10.6 g/dL (13.0-16.5); Mean Corp Hgb Conc 33.1 g/dL (32-36); Mean Corpuscular Hgb 29.9 pg (27.0-32.0); Mean Corpuscular Volume 90.1 fL (80-94); Mean Platelet Vol. 8.7 fl (6.2-12.0); Platelet Count 242 K/mm3 (150-450); RBC Distribution Width CV 14.6 % (11.6-14.6); RBC Distribution Width SD 48.1 fl (35.1-43.9); Red Blood Count 3.55 M/mm3 (4.6-6.2); White Blood Count 5.9 K/mm3 (4.4-11.0)
--- NOTE | 2024-03-30 08:05 | PN.HOSP_ITS ---
Reason for Visit Reason for Visit: Diagnoses Acute kidney failure, unspecified (03/29/24) Chronic kidney disease, stage 3b (03/29/24) Localized edema (03/29/24) Subjective Subjective Decreased LE edema. Still with scrotal edema. Complains of aching in hips. Objective Data Objective Data Vital Signs: Vital Signs Temp Pulse Resp BP Pulse Ox O2 Del Method 36.6 C 78 16 100/46 L 95 Room Air 03/30/24 07:58 03/30/24 07:58 03/30/24 07:58 03/30/24 07:58 03/30/24 07:58 03/30/24 07:58 Oxygen Delivery Method Room Air Weight: 153.4 kg Body Mass Index (BMI) 43.4 Intake & Output: Intake and Output for Last 24 Hours 03/28/24 03/29/24 03/30/24 23:59 23:59 23:59 Output Total 450 / 1250 1250 / 1250 Balance -450 / -1250 -1250 / -1250 Lab / Micro Data 03/30/24 07:02 03/30/24 07:07 Labs: Laboratory Results - last 24 hr 03/29/24 15:24: WBC 7.0, RBC 4.06 L, Hgb 12.2 L, Hct 36.8 L, MCV 90.6, MCH 30.0, MCHC 33.2, RDW Std Deviation 49.3 H, RDW Coeff of Daniel 14.8 H, Plt Count 253, MPV 8.2, Immature Gran % (Auto) 0.300, Neut % (Auto) 66.3, Lymph % (Auto) 16.1 L, [place] % (Auto) 11.1 H, Eos % (Auto) 5.1 H, Baso % (Auto) 1.1 H, Absolute Neuts (auto) 4.7, Absolute Lymphs (auto) 1.13, Nucleated RBC % 0, Sodium 137, Potassium 3.7, Chloride 99, Carbon Dioxide 33.0 H, Anion Gap 5, BUN 67 H, Creatinine 3.28 H, Est GFR (MDRD) Af Amer 25 L, Est GFR (MDRD) Non-Af 20 L, BUN/Creatinine Ratio 20.4 H, Glucose 116 H, Calcium 10.0, B-Natriuretic Peptide 91.5 05/10/24 21:15: Ur Random Sodium 93, Urine Creatinine 50.20 Radiography Diagnostic Testing: Radiology Impression Chest X-Ray 03/29/24 17:08 IMPRESSION: Elevated right hemidiaphragm and minor basilar atelectasis. No gross infiltration or pulmonary edema Electronically Signed: Lv Galaviz MD at 17:44 EDT Reading Location ID and State: [address] [place] [address] Tel , Service support , Physical Exam Const alert and no apparent distress HEENT moist oral mucous membranes Resp normal respiratory effort, no retractions and no use of accessory muscles Cardio regular rate, regular rhythm, S1 normal heart sound and S2 normal heart sound GI normal to inspection, nondistended, normoactive bowel sounds, soft to palpation, non-tender and non-distended Extremity Extremity Narrative: bilateral edema in LE. Neuro Sensorium / Orientation: awake and alert Assessment & Plan Assessment/Plan (1) CHAO (acute kidney injury): (2) Chronic kidney disease, stage 3b: (3) Bilateral lower extremity edema: PLAN: Plan CHAO on CKD stage III * imprivng presumed as no baseline creatinine since 05/05/2023 where it 1.83 at that time. Admission creatinine was 3.28. * FENa calculates at 4.45%. Consistent with ATN, though this number may be skewed given diuretic use, though he had not use recently. * nephrology on consult Anasarca * resumed on diuretics. Change furosemide to 40 BID. * monitor * weight has gone down about 40kg since last year. * echo ordered. h/o Afib: * currently NSR * not on anticoagulation * continue carvedilol Mild scrotal edema with right-sided scrotal erythema Chronic HFpEF with moderate pulmonary hypertension, hypertension, hyperlipidemia * Last echo in 04/2023 with EF 65%, unable to assess diastolic dysfunction, mildly dilated RV, severely enlarged LA, pulmonary artery systolic pressure 55 mmHg, no significant valve disease. * Suspect pt has untreated MARY. Recommend sleep evaluation as outpt. Morbid obesity class III * complicates care, recovery and long-term morbidity and mortatlity. DVT prophylaxis: Heparin subcu CODE STATUS: DNR CCA, DNI Charges/Coding Visit Charges Inpatient E&M: 86341 Subs Hosp L2
--- NOTE | 2024-03-30 08:05 | CPS ---
Attempted to start SMI and Pep. Pt sleeeping at this time. SMI and pep opened and placed at bedside
[2024-03-30 08:33] LABS: Anion Gap 6 (5-15); BUN 68 mg/dL (7-18); Calcium,Total 9.2 mg/dL (8.5-10.1); Chloride 100 mmol/L (98-107); Creatinine, Serum 2.83 mg/dL (0.70-1.30); EST Glomerular Filtration Rate 24 mL/min (>60); Est Glom Filt Rate - Afr Amer 29 mL/min (>60); Estimated Creatinine Clearance 41.83 ml/min; Glucose 117 mg/dL (74-106); Potassium 3.4 mmol/L (3.5-5.1); Sodium Level 136 mmol/L (136-145)
[2024-03-30] MEDS: Menthol/Lanolin/Calamine/Znox 113 GM Tube 1 APPLIC TOPICAL ×2 (10:50→21:20)
[2024-03-30] MEDS: Ketoconazole Cream 1 APPLIC TOPICAL (10:50)
[2024-03-30] MEDS: Atorvastatin Calcium 40 MG Tablet PO (10:51)
[2024-03-30] MEDS: Fluoxetine HCl 40 MG CAPSULE PO (10:51)
[2024-03-30] MEDS: Furosemide 40 MG/4 ML Vial IV ×2 (10:59→18:18)
[2024-03-30] MEDS: cycloBENZAPRine HCl 5 MG TABLET PO ×2 (11:00→21:18)
--- NOTE | 2024-03-30 11:01 | CPS ---
Pt is refusing to do SMI or Pep. Pt was asked if he would be willing to do later or at any time and he is refusing to do at all. DCing visists due to pt uncooperative
[2024-03-30] MEDS: 0.9% Saline Lock 10 ML Syringe IV ×2 (11:03→18:18)
--- NOTE | 2024-03-30 11:15 | CASEMGMT ---
RN CM Face to Face with patient for initial transition planning/care coordination assessment. RN CM introduced self and role at [facility]. Patient sitting in chair, alert and oriented. Patient willing to participate in assessment and is able to answer all questions appropriately. Care providers, pharmacy, and demographics verified. PCP: [facility] Specialists: Dr. 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 Patient states he is independent Transportation: self, son DME/HHC: Patient states he has cane, pulse ox, and BP cuff at home. No previous HHC or SNF . Patient wishes to discharge home, denies need for home health at this time. Patient states he has no further needs or concerns at this time. CM to follow for discharge planning needs that may arise. Disposition Plan: Patient to discharge home with family support and follow-up plans in place. Breonna OROURKE, RN, CM
[2024-03-30] MEDS: Potassium Chloride Oral Tablet 20 MEQ 60 MEQ PO (22:35)
[2024-03-30 23:54] LABS: Magnesium 2.1 mg/dL (1.6-2.6); Phosphorus 4.7 mg/dL (2.5-4.9); Potassium 3.6 mmol/L (3.5-5.1)
[2024-03-31 03:00] VITALS: BP 114/62; PULSE 57; RESP 18; TEMP 36.5; O2SAT 95
[2024-03-31] MEDS: Heparin Injection (Vial) 5,000 UNIT/ML VIAL 5000 UNIT SC (05:24)
[2024-03-31] MEDS: cycloBENZAPRine HCl 5 MG TABLET PO ×3 (05:24→20:58)
[2024-03-31 06:00] VITALS: BMI 43.1
--- NOTE | 2024-03-31 08:18 | PN.HOSP_ITS ---
Reason for Visit Reason for Visit: Diagnoses Acute kidney failure, unspecified (03/29/24) Chronic kidney disease, stage 3b (03/29/24) Localized edema (03/29/24) Objective Data Objective Data Vital Signs: Vital Signs Temp Pulse Resp BP Pulse Ox O2 Del Method 97.7 F L 57 L 18 114/62 95 Room Air 03/31/24 03:00 03/31/24 03:00 03/31/24 03:00 03/31/24 03:00 03/31/24 03:00 03/31/24 03:05 Oxygen Delivery Method Room Air Weight: 336 lb 3.279 oz Body Mass Index (BMI) 43.1 Intake & Output: Intake and Output for Last 24 Hours 03/29/24 03/30/24 03/31/24 23:59 23:59 23:59 Intake Total 480 / 480 Output Total 450 / 1250 3450 / 4100 1275 / 1275 Balance -450 / -1250 -3450 / -3740 -795 / -795 Lab / Micro Data 03/30/24 07:02 03/30/24 23:30 Labs: Laboratory Results - last 24 hr 03/30/24 07:07: Sodium 136, Potassium 3.4 L 03/30/24 07:07: Potassium Cancelled, Chloride 100, Carbon Dioxide 30.0, Anion Gap 6, BUN 68 H, Creatinine 2.83 H, Estim Creat Clear Calc 41.83, Est GFR (MDRD) Af Amer 29 L, Est GFR (MDRD) Non-Af 24 L, BUN/Creatinine Ratio 24.0 H, Glucose 117 H, Calcium 9.2, Phosphorus Cancelled, Magnesium Cancelled 03/30/24 23:30: Potassium 3.6, Phosphorus 4.7, Magnesium 2.1 Radiography Diagnostic Testing: Radiology Impression Echocardiogram 03/29/24 18:31 Interpretation Summary Mild concentric left ventricular hypertrophy. The left ventricular ejection fraction is 65 %. At least grade 2 diastolic dysfunction. There is severe biatrial dilatation. Mild (1+) mitral valve insufficiency. Mild tricuspid valve insufficiency. Severe pulmonary hypertension Ordering Physician: Genaro Barth Referring Physician: Wale Melgoza Performed By: Rosy Saini, ISMAEL, RVT Physical Exam Narrative Mild scrotal edema with scrotal erythema noted particularly on right side of scrotum. No tenderness to palpation. Patient was admitted with shortness of breath, lower extremity swelling, scrotal edema and abdominal swelling; anasarca. Patient states swelling of lower extremities and scrotal edema better. Shortness of breath is also improved. Physical exam General: Alert, Oriented x3, Cooperative, BMI 43.2 kg/m? morbid obesity HEENT: Atraumatic, PERRLA, EOMI, Normocephalic Oral: No Gingival or Mucosal Lesions/ Ulcerations Neck: Supple, No JVD, Negative Carotid Bruits Chest wall/Lungs: Air entry diminished in bilateral lung bases. No crepitation/rhonchi Cardiovascular: Sinus rhythm. Systolic murmur LLSB. S1-S2 regular. Abdomen: Bowel Sounds Present, Soft, Non Tender, Non-Distended : Scrotal edema better. No open ulcer but mild redness/skin bruise from rubbing of thighs. No dysuria. No renal angle or suprapubic tenderness. Urinating well. Extremities: Bilateral 3+ pitting edema, Capillary Refill Less than 3 Seconds Skin: No rashes, No breakdown Musculoskeletal: No Tenderness to Palpation of Joints or Extremities Neurological: Cranial nerves II-XII grossly intact, DTR 2+/4. No acute focal neurological deficit. Psych/Mental Status: Flat affect Assessment & Plan Assessment/Plan (1) CHAO (acute kidney injury): (2) Chronic kidney disease, stage 3b: (3) Bilateral lower extremity edema: PLAN: Plan CHAO on CKD stage III * imprivng presumed as no baseline creatinine since 05/05/2023 where it 1.83 at that time. Admission creatinine was 3.28. * FENa calculates at 4.45%. Consistent with ATN, though this number may be skewed given diuretic use, though he had not use recently. * nephrology on consult 03/31: BUNs/creatinine improving 68/2.83. Anasarca * resumed on diuretics. Change furosemide to 40 BID. Heart failure core measures including intake and output, fluid restriction less than 1500 mL, daily weight monitoring, kidney and electrolytes monitoring. * weight has gone down about 40kg since last year. * 2D echo reviewed with the patient. Echo shows EF 65% with stage II diastolic dysfunction. Severe biatrial dilatation, mild MR, severe pulmonary hypertension, PASP 68 mmHg h/o Afib: * currently NSR * not on anticoagulation * continue carvedilol Mild scrotal edema with right-sided scrotal erythema Chronic HFpEF with moderate pulmonary hypertension, hypertension, hyperlipidemia * Last echo in 04/2023 with EF 65%, unable to assess diastolic dysfunction, mildly dilated RV, severely enlarged LA, pulmonary artery systolic pressure 55 mmHg, no significant valve disease. * Suspect pt has untreated MARY. Recommend sleep evaluation as outpt. Morbid obesity class III * complicates care, recovery and long-term morbidity and mortatlity. DVT prophylaxis: Heparin subcu CODE STATUS: DNR CCA, DNI Clinical Impression(s) from Imaging Studies Chest X-Ray 03/29/24 17:08 IMPRESSION: Elevated right hemidiaphragm and minor basilar atelectasis. No gross infiltration or pulmonary edema Electronically Signed: Lv Galaviz MD at 17:44 EDT Reading Location ID and State: [facility] / [place] Tel , Service support , Echocardiogram 03/29/24 18:31 Interpretation Summary Mild concentric left ventricular hypertrophy. The left ventricular ejection fraction is 65 %. At least grade 2 diastolic dysfunction. There is severe biatrial dilatation. Mild (1+) mitral valve insufficiency. Mild tricuspid valve insufficiency. Severe pulmonary hypertension Ordering Physician: Genaro Barth Referring Physician: Wale Melgoza Performed By: Rosy Saini, RDCS, RVT Charges/Coding Visit Charges Inpatient E&M: 69538 Subs Hosp L2
[2024-03-31 08:35] VITALS: BP 111/60; PULSE 105; RESP 16; TEMP 36.3; O2SAT 96
[2024-03-31] MEDS: 0.9% Saline Lock 10 ML Syringe IV ×2 (09:25→17:13)
[2024-03-31] MEDS: Furosemide 40 MG/4 ML Vial IV ×2 (09:25→17:13)
[2024-03-31] MEDS: Atorvastatin Calcium 40 MG Tablet PO (10:02)
[2024-03-31] MEDS: Ketoconazole Cream 1 APPLIC TOPICAL (10:02)
[2024-03-31] MEDS: Fluoxetine HCl 40 MG CAPSULE PO (10:02)
[2024-03-31] MEDS: Menthol/Lanolin/Calamine/Znox 113 GM Tube 1 APPLIC TOPICAL ×2 (10:07→20:58)
--- NOTE | 2024-03-31 10:43 | PCM.CONS.R ---
Assessment & Plan Assessment/Plan (1) CHAO (acute kidney injury): PLAN: Suspect patient has developed acute kidney injury secondary to renal hypoperfusion during episode of hypotension when he had a bout of atrial fibrillation with rapid ventricular response. Rhythm control (2) Bilateral lower extremity edema: PLAN: That is mostly related to his pulmonary hypertension, he was not taking his diuretics for several days. Definitely would restart diuretics at this point (3) Chronic kidney disease, stage 3b: PLAN: Patient has chronic kidney disease stage IIIb, baseline creatinine 1.9 HPI Consult Data Date of Consult: 03/31/24 HPI Narrative Reason for Consultation: CHAO on CKD 3, edema HPI Narrative: CHERYL HERRERA, is a 63 M who presents emergency room with a chief complaint of swelling. According to patient about a week ago he started to experience significant palpitations which he has attributed to episode of atrial fibrillation. He states that during that episode his pulse was in the 150s, and blood pressure was in the 80s to 100s. That made him feel so sick and debilitated that he could not get up and leave the house for several days, did not take his medications and started to experience edema. Finally his children came over and insisted that he go to the emergency room. Patient states that he has chronic renal insufficiency for at least 30 years and has been slowly progressing, without significant proteinuria. 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 He states also that he is very difficult to diurese and lately has been requiring 100 mg of torsemide to keep his fluids down. Considering that he did not take torsemide for several days, his edema get worse. Patient's baseline creatinine is 1.8-1.9. He had an episode of worsening of kidney function about a year ago, has been seen by Dr. Trinidad. Upon arrival to emergency room he was found to have creatinine of 3.28, but it is improving now even with diuretics to 2.8 today. He has no respiratory compromise. He continues to be in atrial fibrillation [facility] Medical History Atrial fibrillation Chronic pain CKD (chronic kidney disease) Diabetes Diabetes mellitus type 2, diet-controlled Former smoker Hypertension Kidney disease Non-smoker Home Medications carvedilol 25 mg tablet (Coreg) 25 mg PO BID HEART 07/06/21 [History Last Taken 05/03/23] fluoxetine 40 mg capsule 40 mg PO DAILY DEPRESSION 07/06/21 [History Last Taken 06/14/23] lisinopril 40 mg tablet 20 mg PO DAILY BP 07/06/21 [History Last Taken 05/03/23] metolazone 2.5 mg tablet 2.5 mg PO DAILY FLUID 07/06/21 [History Last Taken 03/27/24] potassium chloride 10 mEq tablet,extended release 20 meq PO DAILY 07/06/21 [History Last Taken 05/03/23] spironolactone 25 mg tablet 25 mg PO DAILY PRN fluid 07/06/21 [History Last Taken 03/27/24] torsemide 100 mg tablet 100 mg PO DAILY FLUID 07/06/21 [History Last Taken 03/27/24] atorvastatin 40 mg tablet 40 mg PO DAILY CHOLESTEROL 05/04/23 [History Last Taken 05/03/23] fluoxetine 10 mg capsule 10 mg PO DAILY PRN MOOD 03/29/24 [History Last Taken Unknown] Allergy/AdvReac Type Severity Reaction Status Date / Time codeine Allergy Swelling Verified 03/29/24 13:12 Surgical History History of appendectomy History of elbow surgery History of exploratory laparotomy (~05/2022) History of hernia repair (~05/2022) Social History Smoking Status: Former smoker ROS Constitutional Constitutional: Denies chills, fever(s), malaise, weakness, weight gain or weight loss Eyes Eyes: Denies blindness, blurry vision, change in vision, discongugate gaze, double vision, dry eyes or loss of vision ENT HEENT: Denies dry mouth, epistaxis, hoarseness, loss taste/smell or nasal congestion Cardiovascular Cardiovascular: Reports leg edema and palpitations Respiratory/Chest Respiratory/Chest: Denies dry cough, dyspnea on exertion, hemoptysis, portable oxygen @ home, productive cough, shortness of breath at rest or wheezing Gastrointestinal Gastrointestinal: Denies abdominal pain, anorexia, diarrhea, dry heaves, hematemesis, hematochezia, melena, nausea, rectal bleeding, vomiting or weight changes Genitourinary Genitourinary: Denies change in urinary stream, difficulty urinating, dribbling, dysuria, flank pain, hematuria, nocturia, oliguria, post void dribbling, urinary frequency, urinary hesitancy, urinary incontinence or urinary urgency Musculoskeletal Musculoskeletal: Reports muscle cramps and myalgias Integumentary Integumentary: Denies dry skin, erythema, jaundice, lesions, pruritus, rash or skin ulcer Neurologic Neurologic: Denies abnormal gait, burning sensations, confusion, focal weakness, frequent falls, headache(s), numbness, restless legs, seizures, syncope, tremor(s) or weakness Psychiatric Psychiatric: Denies anxiety, confusion, depression or hallucinations Endocrine Endocrinology: Denies cold intolerance, fatigue, heat intolerance, polydipsia or polyuria Hematologic/Lymphatic Hematologic/Lymphatic: Denies anemia, easy bleeding or easy bruising Physical Exam Const alert, oriented x3, no apparent distress and average body habitus General Appearance: well developed Orientation / Consciousness: oriented to person, oriented to place and oriented to time HEENT normocephalic Head and Scalp: atraumatic Eyes PERRL Neck no lymphadenopathy Resp no use of accessory muscles and clear to auscultation bilaterally Cardio Rhythm: abnormal rhythm irregularly irregular GI non-tender and non-distended Auscultation: normoactive bowel sounds Palpation: soft Skin no rashes or lesions noted Neuro CN's II-XII intact bilaterally Psych cooperative Lab / Micro Data Attestation: I reviewed the patient's lab results. 03/30/24 07:02 03/30/24 23:30 Labs: Laboratory Results - last 24 hr 03/30/24 07:07: Potassium Cancelled, Phosphorus Cancelled, Magnesium Cancelled 03/30/24 23:30: Potassium 3.6, Phosphorus 4.7, Magnesium 2.1 Imaging Radiology Impression Echocardiogram 03/29/24 18:31 Interpretation Summary Mild concentric left ventricular hypertrophy. The left ventricular ejection fraction is 65 %. At least grade 2 diastolic dysfunction. There is severe biatrial dilatation. Mild (1+) mitral valve insufficiency. Mild tricuspid valve insufficiency. Severe pulmonary hypertension Ordering Physician: Genaro Barth Referring Physician: Wale Melgoza Performed By: Rosy Saini, ISMAEL, RVT
[2024-03-31 13:17] VITALS: BP 116/52; PULSE 73; RESP 18; TEMP 36.3; O2SAT 98
[2024-03-31 18:42] VITALS: BP 130/72; PULSE 93; RESP 17; TEMP 36.4; O2SAT 98
[2024-03-31] MEDS: oxyCODONE 5 MG Tablet PO (19:33)
[2024-03-31] MEDS: Carvedilol 6.25 MG Tablet PO (20:58)
[2024-03-31 22:00] VITALS: BP 122/57; PULSE 70; RESP 18; TEMP 36.7; O2SAT 96
[2024-04-01 04:00] VITALS: BP 122/58; PULSE 68; RESP 18; TEMP 36.6; O2SAT 96
[2024-04-01] MEDS: cycloBENZAPRine HCl 5 MG TABLET PO ×2 (05:09→13:53)
[2024-04-01 06:42] LABS: Absolute Lymphocyte Count 1.44 X10^3/uL (0.83-4.51); Absolute Neutrophil Count 3.3 X10^3/uL (2.0-7.7); Basophil# 0.06 X10^3/uL; Basophil% 1.1 % (0-1); Eosinophil# 0.24 X10^3/uL; Eosinophils% 4.2 % (0-5); Hematocrit 30.7 % (40-54); Hemoglobin 10.2 g/dL (13.0-16.5); Lymphocyte # 1.44 X10^3/ul (0.83-4.51); Lymphocyte % 25.2 % (19-41); Mean Corp Hgb Conc 33.2 g/dL (32-36); Mean Corpuscular Hgb 30.3 pg (27.0-32.0); Mean Corpuscular Volume 91.1 fL (80-94); Mean Platelet Vol. 8.9 fl (6.2-12.0); Monocyte# 0.69 X10^3/uL; Monocyte% 12.1 % (0-10); NRBC Flagged by Analyzer 0 % (0-5); Neutrophil # 3.25 X10^3/uL (2.7-7.7); Neutrophil % 56.9 % (47-70); Platelet Count 229 K/mm3 (150-450); RBC Distribution Width CV 14.5 % (11.6-14.6); RBC Distribution Width SD 48.9 fl (35.1-43.9); Red Blood Count 3.37 M/mm3 (4.6-6.2); White Blood Count 5.7 K/mm3 (4.4-11.0)
[2024-04-01 07:09] LABS: Anion Gap 6 (5-15); BUN 78 mg/dL (7-18); BUN/Creat Ratio 33.9 RATIO (10-20); Calcium,Total 8.9 mg/dL (8.5-10.1); Chloride 99 mmol/L (98-107); EST Glomerular Filtration Rate 31 mL/min (>60); Est Glom Filt Rate - Afr Amer 37 mL/min (>60); Glucose 104 mg/dL (74-106); Potassium 3.6 mmol/L (3.5-5.1); Sodium Level 136 mmol/L (136-145)
[2024-04-01 07:36] VITALS: O2SAT 96
[2024-04-01 09:58] VITALS: BP 107/55; PULSE 68; RESP 17; TEMP 36.6; O2SAT 95
[2024-04-01] MEDS: Menthol/Lanolin/Calamine/Znox 113 GM Tube 1 APPLIC TOPICAL (10:00)
[2024-04-01] MEDS: Ketoconazole Cream 1 APPLIC TOPICAL (10:00)
[2024-04-01] MEDS: Fluoxetine HCl 40 MG CAPSULE PO (10:01)
[2024-04-01] MEDS: Atorvastatin Calcium 40 MG Tablet PO (10:01)
[2024-04-01] MEDS: Furosemide 40 MG/4 ML Vial IV (10:01)
[2024-04-01] MEDS: oxyCODONE 5 MG Tablet PO (10:01)
[2024-04-01] MEDS: 0.9% Saline Lock 10 ML Syringe IV (10:01)
[2024-04-01] MEDS: Acetaminophen 325 MG Tablet 650 MG PO (10:01)
[2024-04-01] MEDS: Carvedilol 6.25 MG Tablet PO (10:02)
--- NOTE | 2024-04-01 10:05 | PCM.DC ---
Discharge Instructions Diet Discharge Diet: Low fat / Low cholesterol, 8 Cup Fluid Restriction and 2000 mg Sodium Diet Activity Weight Bearing Status: Weight bearing as tolerated Dressing / Incision Call your doctor if you observe: Fever of 101 or Higher, Coldness, Increased Pain, Numbness or Tingling, Change in Color, Inability to urinate, Inability to have a bowel movement, Shortness of breath, Dizziness, Fainting spells, Swelling in the ankles, Chest pain, Prolonged hiccupping, Increased palpitations (irregular heartbeat) and Calf discomfort Follow Up Care Test Results: Test results from this visit will be discussed in further detail at your follow-up appointment, if applicable. Discharge Plan Admission Admit Date/Time: 03/29/24 17:01 Primary Reason for Your Visit: CHAO, Fluid overlaod Attending Provider: Deniz Maharaj Primary Care Provider: Wale Melgoza Consulting Providers: Cabrera Bhatti; Genaro Barth; Donnie Barone Discharge Orders/Prescriptions Prescriptions: New carvedilol 6.25 mg Tablet 6.25 mg PO BID 30 Days Qty: 60 2RF Rx Instructions: Hold for heart less than 50 or systolic blood pressure less than 100 mmHg. torsemide 40 mg tablet 40 mg PO BID 30 Days Qty: 60 1RF Continued fluoxetine 40 mg Capsule 40 mg PO DAILY carvedilol [Coreg] 25 mg Tablet 25 mg PO BID atorvastatin 40 mg Tablet 40 mg PO DAILY Changed spironolactone 25 mg Tablet 12.5 mg PO DAILY PRN (Reason: fluid) 30 Days Qty: 0 0RF Held metolazone 2.5 mg Tablet 2.5 mg PO DAILY Hold Instructions: Hold for 2 weeks until follow-up with the net software engineer lisinopril 40 mg Tablet 20 mg PO DAILY Hold Instructions: Hold for 2 weeks until follow-up with the net software engineer Discontinued potassium chloride 10 mEq Tablet Extended Release 20 meq PO DAILY torsemide 100 mg Tablet 100 mg PO DAILY fluoxetine 10 mg capsule 10 mg PO DAILY PRN (Reason: MOOD) Referrals / Follow Up: Wale Melgoza MD [Primary Care Provider] - 04/05/24 10:20 am Aleks Mcleod MD [Med Staff - Active Staff] - Within 1 Month Frank Bailey DO [Med Staff - Active Staff] - Within 2 Weeks Cabrera Bhatti MD [Med Staff - Consulting] - Within 1 Week Disposition Disposition (needs filled in before D/C Order can be placed): Home, Self Care
--- NOTE | 2024-04-01 10:08 | DCINST_ITS ---
Discharge Instructions Diet Discharge Diet: Low fat / Low cholesterol, 8 Cup Fluid Restriction and 2000 mg Sodium Diet Activity Discharge Activity: Return to Normal Activity Weight Bearing Status: Weight bearing as tolerated Dressing / Incision Call your doctor if you observe: Fever of 101 or Higher, Coldness, Increased Pain, Numbness or Tingling, Change in Color, Inability to urinate, Inability to have a bowel movement, Shortness of breath, Dizziness, Fainting spells, Swelling in the ankles, Chest pain, Prolonged hiccupping, Increased palpitations (irregular heartbeat) and Calf discomfort Follow Up Care When: IN 2 WEEKS Test Results: Test results from this visit will be discussed in further detail at your follow- up appointment, if applicable. Discharge Plan Admission Admit Date/Time: 03/29/24 17:01 Attending Provider: Deniz Maharaj Primary Care Provider: Wale Melgoza Consulting Providers: Cabrera Bhatti; Genaro Barth; Donnie Barone Discharge Orders/Prescriptions Prescriptions: No Action fluoxetine 40 mg Capsule 40 mg PO DAILY metolazone 2.5 mg Tablet 2.5 mg PO DAILY carvedilol [Coreg] 25 mg Tablet 25 mg PO BID potassium chloride 10 mEq Tablet Extended Release 20 meq PO DAILY spironolactone 25 mg Tablet 25 mg PO DAILY PRN (Reason: fluid) torsemide 100 mg Tablet 100 mg PO DAILY lisinopril 40 mg Tablet 20 mg PO DAILY atorvastatin 40 mg Tablet 40 mg PO DAILY fluoxetine 10 mg capsule 10 mg PO DAILY PRN (Reason: MOOD) Referrals / Follow Up: Wale Melgoza MD [Primary Care Provider] - Disposition Disposition (needs filled in before D/C Order can be placed): Home, Self Care
--- NOTE | 2024-04-01 11:29 | CASEMGMT ---
Patient has order for discharge. RN CM in to discuss needs at discharge. RN CM reviewed progress with therapy with patient. RN CM inquired about needs at discharge. Patient states he needs to get stronger. RN CM inquired about HHC or outpatient therapy at discharge. Patient denies therapy or HHC at discharge and denied DME needs. RN CM updated patient that if he should reconsider therapy or DME after discharge to follow up with PCP, patient voiced understanding. Patient had no further questions or concerns.
--- NOTE | 2024-04-01 11:42 | PCM.DC.SUM ---
Providers Date of Admission: 03/29/24 Date of Discharge: 04/01/24 Primary Care Physician: Dr. Wale Melgoza MD Consultations 03/29/24 18:31 Consult: Nephrology Routine Consulting Provider: Cabrera Bhatti Reason for Consult: CHAO on CKD 3 EMERGENT Consult: No MD Notified: Yes Date Notified: 03/29/24 Time Notified: 18:38 Method of Notification: Answering Service Reason For Visit: CHF EXACERBATION Diagnosis Discharge Diagnosis (1) CHAO (acute kidney injury): Status: Acute Code(s): N17.9 - Acute kidney failure, unspecified (2) Chronic kidney disease, stage 3b: Status: Acute Code(s): N18.32 - Chronic kidney disease, stage 3b (3) Bilateral lower extremity edema: Status: Acute Code(s): R60.0 - Localized edema Plan 63-year-old gentleman was admitted with worsening bilateral lower extremity edema, dyspnea on exertion, CHAO on CKD but not in respiratory distress. Patient also had a scrotal edema CHAO on CKD stage III imprivng presumed as no baseline creatinine since 05/05/2023 where it 1.83 at that time. Admission creatinine was 3.28. FENa calculates at 4.45%. Consistent with ATN, though this number may be skewed given diuretic use, though he had not use recently. nephrology on consult 03/31: BUNs/creatinine improving 68/2.83. 04/01: BUNs/creatinine improved to 78/2.3. Patient discharged on torsemide 40 mg twice daily, equivalent dose of furosemide 40 mg twice daily. Advised follow-up with marine electrician in 2 weeks. His spironolactone dose decreased. Supplemental potassium and metolazone discontinued. Anasarca resumed on diuretics. Change furosemide to 40 BID. Heart failure core measures including intake and output, fluid restriction less than 1500 mL, daily weight monitoring, kidney and electrolytes monitoring. weight has gone down about 40kg since last year. 2D echo reviewed with the patient. Echo shows EF 65% with stage II diastolic dysfunction. Severe biatrial dilatation, mild MR, severe pulmonary hypertension, PASP 68 mmHg 04/01: Patient can walk. Scrotal edema and leg swelling is much improved. h/o Afib: currently NSR not on anticoagulation continue carvedilol 04/01: The patient was advised follow-up in cardiology clinic. Probably patient does not want to take anticoagulant. Mild scrotal edema with right-sided scrotal erythema Chronic HFpEF with moderate pulmonary hypertension, hypertension, hyperlipidemia Last echo in 04/2023 with EF 65%, unable to assess diastolic dysfunction, mildly dilated RV, severely enlarged LA, pulmonary artery systolic pressure 55 mmHg, no significant valve disease. Suspect pt has untreated MARY. Recommend sleep evaluation as outpt. 04/01: Follow-up in pulmonary clinic. Morbid obesity class III complicates care, recovery and long-term morbidity and mortatlity. DVT prophylaxis: Heparin subcu CODE STATUS: DNR CCA, DNI Discharge medication reconciliation done. Discharge follow-up instructions completed. Discharge process discussed with the patient and all questions were answered to patient's satisfaction. Follow with PCP in 1 to 2 weeks Total time spent, exact 35 minutes on discharge meds reconciliation, examination, coordination of care with nurses and ancillary staff, review of imaging and blood test and discussion with the patient on follow-up instructions. Laboratory Results 04/01/24 05:55: WBC 5.7, RBC 3.37 L, Hgb 10.2 L, Hct 30.7 L, MCV 91.1, MCH 30.3, MCHC 33.2, RDW Std Deviation 48.9 H, RDW Coeff of Daniel 14.5, Plt Count 229, MPV 8.9, Immature Gran % (Auto) 0.500, Neut % (Auto) 56.9, Lymph % (Auto) 25.2, [place] % (Auto) 12.1 H, Eos % (Auto) 4.2, Baso % (Auto) 1.1 H, Absolute Neuts (auto) 3.3, Absolute Lymphs (auto) 1.44, Nucleated RBC % 0, Sodium 136, Potassium 3.6, Chloride 99, Carbon Dioxide 31.0, Anion Gap 6, BUN 78 H, Creatinine 2.30 H, Estim Creat Clear Calc 51.30, Est GFR (MDRD) Af Amer 37 L, Est GFR (MDRD) Non-Af 31 L, BUN/Creatinine Ratio 33.9 H, Glucose 104, Calcium 8.9 Clinical Impression(s) from Imaging Studies Chest X-Ray 03/29/24 17:08 IMPRESSION: Elevated right hemidiaphragm and minor basilar atelectasis. No gross infiltration or pulmonary edema Electronically Signed: Lv Galaviz MD at 17:44 EDT , Echocardiogram 03/29/24 18:31 Interpretation Summary Mild concentric left ventricular hypertrophy. The left ventricular ejection fraction is 65 %. At least grade 2 diastolic dysfunction. There is severe biatrial dilatation. Mild (1+) mitral valve insufficiency. Mild tricuspid valve insufficiency. Severe pulmonary hypertension Ordering Physician: Genaro Barth Referring Physician: Wale Melgoza Performed By: Rosy Saini, ISMAEL, RVT Medications at Discharge Home Medications fluoxetine 40 mg capsule 40 mg PO DAILY DEPRESSION 07/06/21 lisinopril 40 mg tablet 20 mg PO DAILY BP 07/06/21 metolazone 2.5 mg tablet 2.5 mg PO DAILY FLUID 07/06/21 atorvastatin 40 mg tablet 40 mg PO DAILY CHOLESTEROL 05/04/23 carvedilol 6.25 mg tablet 6.25 mg PO BID 30 days #60 tabs 04/01/24 spironolactone 25 mg tablet 12.5 mg (1/2 x 25 mg) PO DAILY PRN fluid 30 days #0 tabs 04/01/24 torsemide 40 mg tablet 40 mg PO BID 1 month #60 tabs 04/01/24 Physical Exam Narrative Bilateral lower extremity and scrotal edema has improved. Mild scrotal erythema noted particularly on right side of scrotum. No tenderness to palpation. Physical exam General: Alert, Oriented x3, Cooperative, BMI 43.2 kg/m? morbid obesity HEENT: Atraumatic, PERRLA, EOMI, Normocephalic Oral: No Gingival or Mucosal Lesions/ Ulcerations Neck: Supple, No JVD, Negative Carotid Bruits Chest wall/Lungs: Air entry diminished in bilateral lung bases. No crepitation/rhonchi Cardiovascular: Sinus rhythm. Systolic murmur LLSB. S1-S2 regular. Abdomen: Bowel Sounds Present, Soft, Non Tender, Non-Distended : Scrotal edema better. No open ulcer but mild redness/skin bruise from rubbing of thighs. No dysuria. No renal angle or suprapubic tenderness. Urinating well. Extremities: Bilateral 3+ pitting edema, Capillary Refill Less than 3 Seconds Skin: No rashes, No breakdown Musculoskeletal: No Tenderness to Palpation of Joints or Extremities Neurological: Cranial nerves II-XII grossly intact, DTR 2+/4. No acute focal neurological deficit. Psych/Mental Status: Flat affect Weight / BMI Weight Weight: 336 lb 3.279 oz Body Mass Index (BMI) 43.1 ABG / Lab / Microbiology Data 04/01/24 05:55 04/01/24 05:55 Laboratory: Laboratory Results - last 24 hr 04/01/24 05:55: WBC 5.7, RBC 3.37 L, Hgb 10.2 L, Hct 30.7 L, MCV 91.1, MCH 30.3, MCHC 33.2, RDW Std Deviation 48.9 H, RDW Coeff of Daniel 14.5, Plt Count 229, MPV 8.9, Immature Gran % (Auto) 0.500, Neut % (Auto) 56.9, Lymph % (Auto) 25.2, [place] % (Auto) 12.1 H, Eos % (Auto) 4.2, Baso % (Auto) 1.1 H, Absolute Neuts (auto) 3.3, Absolute Lymphs (auto) 1.44, Nucleated RBC % 0, Sodium 136, Potassium 3.6, Chloride 99, Carbon Dioxide 31.0, Anion Gap 6, BUN 78 H, Creatinine 2.30 H, Estim Creat Clear Calc 51.30, Est GFR (MDRD) Af Amer 37 L, Est GFR (MDRD) Non-Af 31 L, BUN/Creatinine Ratio 33.9 H, Glucose 104, Calcium 8.9 D/C Instructions Discharge Diet: Low fat / Low cholesterol, 8 Cup Fluid Restriction and 2000 mg Sodium Diet Weight Bearing Status: Weight bearing as tolerated Call your doctor if you observe: Fever of 101 or Higher, Coldness, Increased Pain, Numbness or Tingling, Change in Color, Inability to urinate, Inability to have a bowel movement, Shortness of breath, Dizziness, Fainting spells, Swelling in the ankles, Chest pain, Prolonged hiccupping, Increased palpitations (irregular heartbeat) and Calf discomfort When: IN 2 WEEKS Meaningful Use Info Meaningful Use Meaningful Use Diagnoses (Choose all that apply): None applicable Ischemic Stroke Statin Dosing Therapy Reference: STATIN DOSE THERAPY REFERENCE: * Patients > 75 years receive moderate or high dose statin therapy. * Patients 75 years or YOUNGER should receive HIGH intensity statin dose unless contraindicated. You will be required to document reason for non-treatment if statin daily dose does not meet guidelines. HIGH DOSE STATIN THERAPY DAILY Atorvastatin > than or = to 40 mg Rosuvastatin > than or = to 20 mg Amlodipine + Atorvastatin > than or = to 2.5/40 mg Ezetimibe + Simvastatin 10/80 mg Simvastatin 80mg Discharge Plan Admission Admit Date/Time: 03/29/24 17:01 Primary Reason for Your Visit: CHAO, Fluid overlaod Attending Provider: Deniz Maharaj Primary Care Provider: Wale Melgoza Consulting Providers: Cabrera Bhatti; Genaro Barth; Donnie Barone Discharge Orders/Prescriptions Prescriptions: New carvedilol 6.25 mg Tablet 6.25 mg PO BID 30 Days Qty: 60 2RF Rx Instructions: Hold for heart less than 50 or systolic blood pressure less than 100 mmHg. torsemide 40 mg tablet 40 mg PO BID 30 Days Qty: 60 1RF Continued fluoxetine 40 mg Capsule 40 mg PO DAILY atorvastatin 40 mg Tablet 40 mg PO DAILY Changed spironolactone 25 mg Tablet 12.5 mg PO DAILY PRN (Reason: fluid) 30 Days Qty: 0 0RF Held metolazone 2.5 mg Tablet 2.5 mg PO DAILY Hold Instructions: Hold for 2 weeks until follow-up with the marine electrician lisinopril 40 mg Tablet 20 mg PO DAILY Hold Instructions: Hold for 2 weeks until follow-up with the marine electrician Discontinued carvedilol [Coreg] 25 mg Tablet 25 mg PO BID potassium chloride 10 mEq Tablet Extended Release 20 meq PO DAILY torsemide 100 mg Tablet 100 mg PO DAILY fluoxetine 10 mg capsule 10 mg PO DAILY PRN (Reason: MOOD) Referrals / Follow Up: Aleks Mcleod MD [Med Staff - Active Staff] - Within 1 Month Frank Bailey DO [Med Staff - Active Staff] - Within 2 Weeks Cabrera Bhatti MD [Med Staff - Consulting] - Within 1 Week Wale Melgoza MD [Primary Care Provider] - 04/05/24 10:20 am Disposition Disposition (needs filled in before D/C Order can be placed): Home, Self Care Charges/Coding Visit Charges Inpatient E&M: 42668 Disch Hosp >30min
[2024-04-01 13:57] VITALS: BP 99/51; PULSE 60; RESP 18; TEMP 36.6; O2SAT 96
--- NOTE | 2024-04-01 14:23 | PCM.PN.REN ---
Subjective Subjective Sitting in chair, waiting for discharge to home. No overnight events. Denies any complaints. Objective Data Objective Data Vital Signs: Vital Signs Temp Pulse Resp BP Pulse Ox O2 Del Method O2 Flow Rate 97.8 F 60 18 99/51 L 96 Room Air 4 04/01/24 13:57 04/01/24 13:57 04/01/24 13:57 04/01/24 13:57 04/01/24 13:57 04/01/24 13:57 03/31/24 18:42 Oxygen Flow Rate (L/min) 4 Oxygen Delivery Method Room Air Weight: 152.5 kg Body Mass Index (BMI) 43.1 Intake & Output: Intake and Output for Last 24 Hours 03/30/24 03/31/24 04/01/24 23:59 23:59 23:59 Intake Total 480 / 960 720 / 720 Output Total 3450 / 4100 2575 / 3525 1250 / 1250 Balance -3450 / -3740 -2095 / -2565 -530 / -530 Lab / Micro Data 04/01/24 05:55 04/01/24 05:55 Labs: Laboratory Results - last 24 hr 04/01/24 05:55: WBC 5.7, RBC 3.37 L, Hgb 10.2 L, Hct 30.7 L, MCV 91.1, MCH 30.3, MCHC 33.2, RDW Std Deviation 48.9 H, RDW Coeff of Daniel 14.5, Plt Count 229, MPV 8.9, Immature Gran % (Auto) 0.500, Neut % (Auto) 56.9, Lymph % (Auto) 25.2, [place] % (Auto) 12.1 H, Eos % (Auto) 4.2, Baso % (Auto) 1.1 H, Absolute Neuts (auto) 3.3, Absolute Lymphs (auto) 1.44, Nucleated RBC % 0, Sodium 136, Potassium 3.6, Chloride 99, Carbon Dioxide 31.0, Anion Gap 6, BUN 78 H, Creatinine 2.30 H, Estim Creat Clear Calc 51.30, Est GFR (MDRD) Af Amer 37 L, Est GFR (MDRD) Non-Af 31 L, BUN/Creatinine Ratio 33.9 H, Glucose 104, Calcium 8.9 Physical Exam Narrative Alert and orient x 3, no apparent distress S1, S2, RRR Lung sounds clear Abdomen soft, nontender No pitting edema Assessment & Plan Assessment/Plan (1) CHAO (acute kidney injury): PLAN: Suspect patient has developed acute kidney injury secondary to renal hypoperfusion during episode of hypotension when he had a bout of atrial fibrillation with rapid ventricular response. Currently renal function is stable and heading back towards baseline. SCr 3.28 on admission, today SCr 2.30mg/dL (2) Bilateral lower extremity edema: PLAN: mostly related to his pulmonary hypertension, he was not taking his diuretics for several days. Renal function overall stable with diuretics, had been on Lasix 40 mg IV twice daily. To be discharged home on torsemide 100 mg daily, Aldactone 25 mg daily as needed, metolazone 2.5 mg daily (3) Chronic kidney disease, stage 3b: PLAN: Patient has chronic kidney disease stage IIIb, baseline creatinine ~1.9. Followed by nephrology through [facility]. Encouraged patient to follow-up with his workers compensation legal secretary.
--- NOTE | 2024-04-01 14:43 | PHA.DC_ITS ---
Pharmacy [place] Med Reconciliation Pharmacy Service has performed discharge medication reconciliation for this patient. Patient previously on carvedilol, did not counselling psychologist. Medications reviewed. The patient's discharge medication list was reviewed for discrepancies and discrepancies were resolved. Medications at Discharge Home Medications fluoxetine 40 mg capsule 40 mg PO DAILY DEPRESSION 07/06/21 lisinopril 40 mg tablet 20 mg PO DAILY BP 07/06/21 metolazone 2.5 mg tablet 2.5 mg PO DAILY FLUID 07/06/21 atorvastatin 40 mg tablet 40 mg PO DAILY CHOLESTEROL 05/04/23 carvedilol 6.25 mg tablet 6.25 mg PO BID 30 days #60 tabs 04/01/24 spironolactone 25 mg tablet 12.5 mg (1/2 x 25 mg) PO DAILY PRN fluid 30 days #0 tabs 04/01/24 torsemide 40 mg tablet 40 mg PO BID 1 month #60 tabs 04/01/24
== END 2024-04-01 14:47 | disposition home or self-care (01) | DRG 683 ==
LOC: ED 15:39 → PCU 17:54
PROVIDERS: Physician Assistant; Admitting Provider Hospitalist; Emergency Provider Emergency Medicine; PCP Family Medicine; Visit Provider Internal Medicine
DX: N17.0 Acute kidney failure with tubular necrosis (principal); E87.3 Alkalosis; I13.0 Hypertensive heart and chronic kidney disease with heart failure and stage 1 through stage 4 chronic kidney disease, or unspecified chronic kidney disease; Z68.41 Body mass index [BMI] 40.0-44.9, adult; I50.32 Chronic diastolic (congestive) heart failure; I27.20 Pulmonary hypertension, unspecified; N18.32 Chronic kidney disease, stage 3b; E11.22 Type 2 diabetes mellitus with diabetic chronic kidney disease; E66.01 Morbid (severe) obesity due to excess calories; I48.91 Unspecified atrial fibrillation; F32.A Depression, unspecified; I34.0 Nonrheumatic mitral (valve) insufficiency; I89.0 Lymphedema, not elsewhere classified; E78.5 Hyperlipidemia, unspecified; I87.8 Other specified disorders of veins; G47.33 Obstructive sleep apnea (adult) (pediatric); M54.50 Low back pain, unspecified; Z66 Do not resuscitate; Z87.891 Personal history of nicotine dependence
CPT/HCPCS: 36415; 71045; 80048; 82570; 83735; 83880; 84100; 84132; 84300; 85025; 85027; 93306; 94667; 97110; 97162; 97166; 99284; Q9957; A4216; J1940

== ENCOUNTER 2024-09-01 08:53 | Emergency (ER) | payer SELFPAY ==
[2024-09-01 08:54] VITALS: BP 193/95; PULSE 92; RESP 18; TEMP 36.6; O2SAT 98
--- NOTE | 2024-09-01 09:03 | EDS_ITS ---
HPI History of Present Illness Chief Complaint: Wound Check Informant: patient Onset/Context/Timing Onset: Weeks (1) Context: Gradual Onset Timing: Intermittent Quality: Shortness of breath Location: Chest Worsened by: Exertion Relieved by: Rest Narrative Narrative: Patient presents with increasing leg edema, dyspnea on exertion, and bleeding from his left hand. Patient states this has been getting worse over the past week. Patient states he was sick recently and was unable to take his torsemide. Patient states that since that time his swelling has gotten worse. Patient states he gets short of breath whenever he walks anywhere. Patient states this gets better with rest. Patient denies any chest pain. Patient denies any orthopnea. Patient states that he noted a lesion on the palm of his left hand 1 week ago. Patient states that every time he bumps it, it starts bleeding. Patient states it started again today and he has been unable to stop the bleeding. Patient is unsure of his last tetanus. [facility] Medical History Bilateral lower extremity edema Diabetes Chronic pain Kidney disease Non-smoker CKD (chronic kidney disease) Diabetes mellitus type 2, diet-controlled Former smoker Atrial fibrillation Hypertension Home Medications ?Medication ?Instructions ?Recorded ?Last Taken ?Type fluoxetine 40 mg capsule 40 mg PO DAILY DEPRESSION 07/06/21 05/03/23 History lisinopril 40 mg tablet 20 mg PO DAILY BP 07/06/21 05/03/23 History metolazone 2.5 mg tablet 2.5 mg PO DAILY FLUID 07/06/21 03/27/24 History atorvastatin 40 mg tablet 40 mg PO DAILY CHOLESTEROL 05/04/23 05/03/23 History carvedilol 6.25 mg tablet 6.25 mg PO BID 30 days #60 tabs 04/01/24 Unknown Rx spironolactone 25 mg tablet 12.5 mg (1/2 x 25 mg) PO DAILY PRN 04/01/24 03/27/24 Rx fluid 30 days #0 tabs torsemide 40 mg tablet 40 mg PO BID 1 month #60 tabs 04/01/24 Unknown Rx Allergy/AdvReac Type Severity Reaction Status Date / Time codeine Allergy Swelling Verified 09/01/24 08:54 Surgical History History of appendectomy History of hernia repair (~05/2022) History of exploratory laparotomy (~05/2022) History of elbow surgery Social History Smoking Status: Former smoker ROS ROS ED Constitutional Constitutional ED: Denies chills or fever(s) Eyes Eyes: Denies blurry vision or change in vision ENT ENT ED: Denies rhinorrhea or sore throat Cardiovascular Cardiovascular: Denies chest pain or palpitations Respiratory/Chest Respiratory/Chest: Reports dyspnea and dyspnea on exertion; Denies cough Gastrointestinal Gastrointestinal: Denies nausea or vomiting Genitourinary Genitourinary ED: Denies dysuria or hematuria Musculoskeletal Musculoskeletal: Denies back pain or neck pain Integumentary Denies abscess or rash Neurologic Neurologic: Denies headache(s) or weakness Hematologic/Lymphatic Hematologic/Lymphatic: Reports easy bleeding Allergic/Immunologic Allergic/Immunologic ED: Denies mouth swelling or urticaria EXAM Physical Exam Const Vital Signs: 09/01/24 08:54 09/01/24 10:14 09/01/24 12:22 Temperature 98 F 98.4 F Temperature Source Oral Oral Pulse Rate 92 82 96 Respiratory Rate 18 18 15 Blood Pressure 193/95 H 151/88 H 167/95 H Blood Pressure Mean 127 109 119 Pulse Ox 98 93 94 Oxygen Delivery Method Room Air Room Air Room Air Positive well nourished and well developed General Appearance ED: well developed and NAD HEENT Reports moist mucous membranes Neck supple and no JVD Resp normal respiratory effort and clear to auscultation bilaterally Cardio regular rate Rhythm: abnormal rhythm irregularly irregular GI non-tender and non-distended Palpation: soft Extremity General Extremety ED: Yes edema General Extremity: edema bilateral lower extremity Details: severe Neuro oriented x3, CN's II-XII intact bilaterally and no sensory deficits noted Sensorium / Orientation: alert Motor Exam: strength 5/5 throughout Psych mental status grossly normal Skin Skin Narrative: There is a nodule on the palmar aspect of the left hand over the distal third metacarpal. There is some bleeding noted. There is no tenderness. There is no bony crepitance or step-off noted. Capillary refill was less than 2 seconds in all digits. Sensation was intact to light touch in all digits. Strength is 5/5 bilaterally in the radial, median, and ulnar areas. MDM MDM MDM Narrative Medical decision making narrative: Differential diagnosis includes congestive heart failure, peripheral edema, acute kidney injury, electrolyte abnormality, and coagulopathy. EKG will be obtained to assess for cardiac dysrhythmia and cardiac ischemia. Chest x-ray will be obtained to assess for congestive heart failure and pneumonia. CBC will be obtained to assess for leukocytosis and anemia. Basic metabolic profile will be obtained to assess for electrolyte abnormality and renal function. PT was INR and PTT will be obtained to assess for coagulopathy. BNP will be ordered. However, BNP machine in the laboratory is not currently functioning, so it is unclear if this will be resulted today. Lab Data Attestation: I reviewed the patient's lab results. Lab results narrative: CBC was reviewed. There is a mild anemia with a hemoglobin of 11.4 hematocrit 36.4. Platelets were normal. Basic metabolic profile was reviewed. Potassium was low at 2.8. Creatinine was slightly elevated at 1.59. This is consistent with previous results. PT with INR and PTT were reviewed. Pro time was 16.7 and INR is 1.4. PTT was 38.1. High-sensitivity troponin was reviewed and was normal at 57. Serum magnesium level was reviewed and was normal at 1.7. Labs: Laboratory Results - last 24 hr 09/01/24 10:05 WBC 4.8 RBC 3.91 L Hgb 11.4 L Hct 36.4 L MCV 93.1 MCH 29.2 MCHC 31.3 L RDW Std Deviation 52.9 H RDW Coeff of Daniel 15.5 H Plt Count 192 MPV 8.9 Immature Gran % (Auto) 0.200 Neut % (Auto) 57.6 Lymph % (Auto) 26.9 [place] % (Auto) 9.1 Eos % (Auto) 5.0 Baso % (Auto) 1.2 H Absolute Neuts (auto) 2.8 Absolute Lymphs (auto) 1.30 Nucleated RBC % 0 PT 16.7 H INR 1.4 APTT 38.1 H Sodium 141 Potassium 2.8 L Chloride 101 Carbon Dioxide 33.0 H Anion Gap 7 BUN 11 Creatinine 1.59 H Estim Creat Clear Calc 75.47 Est GFR (MDRD) Af Amer 57 L Est GFR (MDRD) Non-Af 47 L BUN/Creatinine Ratio 6.9 L Glucose 100 Calcium 9.8 Magnesium 1.7 Troponin I High Sens 57 Radiography Chest X-Ray - ED: 2 View, Read by ED Physician, Read by Radiologist and No Acute Disease Diagnostic Testing: Clinical Impression(s) from Imaging Studies Chest X-Ray 09/01/24 10:15 IMPRESSION: No active disease. Electronically Signed: Markie Chun MD at 10:45 EDT Reading Location ID and State: [facility] / [place] Tel , Service support , [place] and lateral chest x-ray was obtained. There are 2 views. On my independent interpretation, lung ramsey are clear. There is normal cardiac silhouette. Bony thorax is normal. There is no acute process noted. Radiologist also interpreted the x-ray and agrees. EKG Initial EKG: Attestation: I personally reviewed and interpreted this EKG as follows: Interpretation: Atrial Fibrillation and Non-Specific ST Changes Comments: EKG was obtained. On my independent interpretation, it shows atrial fibrillation with frequent PVCs with a rate of 87. QRS interval was normal at 106 ms. QTc interval was normal at 483 ms. There is left axis deviation -67. There is an incomplete right bundle branch block pattern noted. There are nonspecific ST-T wave changes. This is unchanged compared to previous EKG Prior EKG tracings: available for review Prior: Unchanged (05/04/2023) Management Discussion w/another healthcare provider: Paster Supervisor (Dr. Rice, plastic surgery) Treatment and Re-Evaluation :: Patient was given a tetanus booster. Gelfoam dressing was applied to the left hand. Patient was given a dose of potassium here. Patient was given a dose of Lasix. Patient was feeling better on reevaluation. Patient was advised of his findings. Patient was given a referral for plastic surgery to follow-up for his lesion on his left hand. Patient was instructed to follow-up with his primary care physician in 3 to 5 days for further evaluation of his peripheral edema. Patient was instructed to return if worse in any way. Patient understood and was agreeable with the plan. All questions were answered. Discharge Plan Triage Chief Complaint: Wound Check ED Provider: Donnie Das Dx/Rx/DC Orders Clinical Impression: Peripheral edema, Nodule of skin of left hand Instructions: ED Peripheral Edema, Bilateral, ED Post Op Wound Check, Bleeding Prescriptions: No Action fluoxetine 40 mg Capsule 40 mg PO DAILY metolazone 2.5 mg Tablet 2.5 mg PO DAILY lisinopril 40 mg Tablet 20 mg PO DAILY atorvastatin 40 mg Tablet 40 mg PO DAILY carvedilol 6.25 mg Tablet 6.25 mg PO BID 30 Days Qty: 60 2RF Rx Instructions: Hold for heart less than 50 or systolic blood pressure less than 100 mmHg. torsemide 40 mg tablet 40 mg PO BID 30 Days Qty: 60 1RF spironolactone 25 mg Tablet 12.5 mg PO DAILY PRN (Reason: fluid) 30 Days Qty: 0 0RF Primary Care Provider: Wale Melgoza Referrals: Wale Melgoza MD [Primary Care Provider] - 3-5 Days Gene Rice MD [Med Staff - Active Staff] - 2 Days (Call tomorrow for an appointment. He may be able to see you on Monday.) Print Language: Persian Disposition Disposition: Home, Self Care
[2024-09-01 09:10] VITALS: BMI 45.5
--- NOTE | 2024-09-01 09:18 | ED.RN ---
pt in for bleeding wound but c/o increase swelling to lower ext and scrotom over last 2 weeks. reported being sick 2 weeks ago with flu and didnt take torsomide as supposed to and trying to get fluid back down ever since restarting it but not working
--- NOTE | 2024-09-01 09:29 | EKG12_ITS ---
Test Reason : Blood Pressure : / mmHG Vent. Rate : 087 BPM Atrial Rate : 000 BPM P-R Int : 000 ms QRS Dur : 106 ms QT Int : 402 ms P-R-T Axes : 000 -67 065 degrees QTc Int : 483 ms Atrial fibrillation with premature ventricular or aberrantly conducted complexes Left axis deviation Incomplete right bundle branch block Possible Anterior infarct , age undetermined Abnormal ECG Confirmed by Everardo Chavez ([id number]), international editorial producer DARYL ZIMMERMAN ([id number]) on 09/02/2024 9:41:21 AM Referred By: Confirmed By:Everardo Chavez
[2024-09-01 10:14] VITALS: BP 151/88; PULSE 82; RESP 18; O2SAT 93
[2024-09-01 10:14] LABS: Absolute Neutrophil Count 2.8 X10^3/uL (2.0-7.7); Basophil# 0.06 X10^3/uL; Basophil% 1.2 % (0-1); Eosinophil# 0.24 X10^3/uL; Hematocrit 36.4 % (40-54); Hemoglobin 11.4 g/dL (13.0-16.5); Lymphocyte % 26.9 % (19-41); Mean Corp Hgb Conc 31.3 g/dL (32-36); Mean Corpuscular Hgb 29.2 pg (27.0-32.0); Mean Corpuscular Volume 93.1 fL (80-94); Mean Platelet Vol. 8.9 fl (6.2-12.0); Monocyte# 0.44 X10^3/uL; Monocyte% 9.1 % (0-10); NRBC Flagged by Analyzer 0 % (0-5); Neutrophil # 2.78 X10^3/uL (2.7-7.7); Neutrophil % 57.6 % (47-70); Platelet Count 192 K/mm3 (150-450); RBC Distribution Width CV 15.5 % (11.6-14.6); RBC Distribution Width SD 52.9 fl (35.1-43.9); Red Blood Count 3.91 M/mm3 (4.6-6.2); White Blood Count 4.8 K/mm3 (4.4-11.0)
--- NOTE | 2024-09-01 10:15 | RAD_ITS ---
STUDY: X-RAY CHEST REASON FOR EXAM: Male, 64 years old. Dyspnea on exertion TECHNIQUE: PA and lateral views of the chest. COMPARISON: 03/29/2024 FINDINGS: The lungs are clear and expanded. Elevated right hemidiaphragm which is unchanged. Normal size heart. Normal mediastinum and luz. Normal visualized pulmonary arteries. Normal visualized aortic arch and descending thoracic aorta. Normal visualized thoracic spine. Normal visualized ribs, clavicles, and shoulders. There is no demonstrated abnormality of the visualized soft tissue structures of the upper abdomen. RAD/Chest PA and Lateral IMPRESSION: No active disease. Electronically Signed: Markie Chun MD at 10:45 EDT ,
[2024-09-01 10:24] LABS: International Normalized Ratio 1.4; Partial Thromboplast Time 38.1 Seconds (24.1-36.2); Prothrombin Time (Protime)PT. 16.7 SECONDS (11.7-14.9)
[2024-09-01 10:44] LABS: Anion Gap 7 (5-15); BUN 11 mg/dL (7-18); BUN/Creat Ratio 6.9 RATIO (10-20); Calcium,Total 9.8 mg/dL (8.5-10.1); Chloride 101 mmol/L (98-107); Creatinine, Serum 1.59 mg/dL (0.70-1.30); EST Glomerular Filtration Rate 47 mL/min (>60); Est Glom Filt Rate - Afr Amer 57 mL/min (>60); Estimated Creatinine Clearance 75.47 ml/min; Glucose 100 mg/dL (74-106); Potassium 2.8 mmol/L (3.5-5.1); Sodium Level 141 mmol/L (136-145); Troponin-I HS 57 pg/mL (3.0-78.0)
[2024-09-01 11:05] LABS: Magnesium 1.7 mg/dL (1.6-2.6)
[2024-09-01] MEDS: Potassium Chloride Oral Tablet 20 MEQ 40 MEQ PO (11:11)
[2024-09-01] MEDS: Acetaminophen 500 MG Tablet 1000 MG PO (11:23)
[2024-09-01] MEDS: Furosemide 40 MG/4 ML Vial IV (11:55)
[2024-09-01 12:22] VITALS: BP 167/95; PULSE 96; RESP 15; TEMP 36.9; O2SAT 94
[2024-09-01 12:52] VITALS: BP 167/95; PULSE 76; RESP 15; TEMP 36.8; O2SAT 95
== END 2024-09-01 12:53 | disposition home or self-care (01) ==
PROVIDERS: Emergency Provider Emergency Medicine; PCP Family Medicine; Visit Provider Emergency Medicine
DX: R22.32 Localized swelling, mass and lump, left upper limb (principal); I48.91 Unspecified atrial fibrillation; E11.22 Type 2 diabetes mellitus with diabetic chronic kidney disease; R06.02 Shortness of breath; N18.9 Chronic kidney disease, unspecified; Z87.891 Personal history of nicotine dependence; I12.9 Hypertensive chronic kidney disease with stage 1 through stage 4 chronic kidney disease, or unspecified chronic kidney disease; Z79.899 Other long term (current) drug therapy; Z90.49 Acquired absence of other specified parts of digestive tract; Z23 Encounter for immunization; E87.6 Hypokalemia
CPT/HCPCS: 71046; 80048; 83735; 83880; 84484; 85025; 85610; 85730; 90715; 93005; 96374; 99284; A4216; J1940

== ENCOUNTER 2024-09-21 14:22 | Emergency (ER) | payer SELFPAY ==
[2024-09-21 14:23] VITALS: BP 185/101; PULSE 52; RESP 20; TEMP 36.6; O2SAT 97; BMI 46.3
--- NOTE | 2024-09-21 15:18 | EDS_ITS ---
HPI History of Present Illness Chief Complaint: Wound Informant: patient Narrative Narrative: Patient 64-year-old male presenting with bleeding from his left hand. Patient has a growth on his palm that he states looks like a mushroom. He notes he has had it for some time but today he bumped it and then he tore the rest of it off. He is continued to have bleeding from the site that he was not able to stop. He denies any other symptoms. Is not on any blood thinners. Is [id number]. Did try putting quick clot on it that he got from the drugstore. No other complaints or concerns at this time. Notes that he previously had been referred to a surgeon to have it removed but had insurance issues was not able to follow-up. [facility] Medical History Bilateral lower extremity edema Diabetes Chronic pain Kidney disease Non-smoker CKD (chronic kidney disease) Diabetes mellitus type 2, diet-controlled Former smoker Atrial fibrillation Hypertension Home Medications ?Medication ?Instructions ?Recorded ?Last Taken ?Type fluoxetine 40 mg capsule 40 mg PO DAILY DEPRESSION 07/06/21 05/03/23 History lisinopril 40 mg tablet 20 mg PO DAILY BP 07/06/21 05/03/23 History metolazone 2.5 mg tablet 2.5 mg PO DAILY FLUID 07/06/21 03/27/24 History atorvastatin 40 mg tablet 40 mg PO DAILY CHOLESTEROL 05/04/23 05/03/23 History carvedilol 6.25 mg tablet 6.25 mg PO BID 30 days #60 tabs 04/01/24 Unknown Rx spironolactone 25 mg tablet 12.5 mg (1/2 x 25 mg) PO DAILY PRN 04/01/24 03/27/24 Rx fluid 30 days #0 tabs torsemide 40 mg tablet 40 mg PO BID 1 month #60 tabs 04/01/24 Unknown Rx Allergy/AdvReac Type Severity Reaction Status Date / Time codeine Allergy Swelling Verified 09/21/24 14:23 Surgical History History of appendectomy History of hernia repair (~05/2022) History of exploratory laparotomy (~05/2022) History of elbow surgery Social History Smoking Status: Former smoker ROS ROS ED Constitutional Constitutional ED: Reports other Details: mild lightheadedness ; Denies chills or fever(s) Cardiovascular Cardiovascular: Denies chest pain Integumentary Reports other Details: bleeding wound on left palm Psychiatric Psychiatric: Reports anxiety Hematologic/Lymphatic Hematologic/Lymphatic: Denies easy bleeding or easy bruising EXAM Physical Exam Const Vital Signs: 09/21/24 14:23 Temperature 97.9 F Temperature Source Temporal Pulse Rate 52 L Respiratory Rate 20 H Blood Pressure 185/101 H Blood Pressure Mean 129 Pulse Ox 97 Oxygen Delivery Method Room Air Positive well nourished and well developed General Appearance ED: well developed and NAD Eyes PERRL Neck supple Chest Wall inspection of chest normal Resp normal respiratory effort and clear to auscultation bilaterally Cardio regular rate and regular rhythm Extremity normal to inspection and full ROM General Extremety ED: Negative for edema General Extremity: Negative for edema Neuro oriented x3 Sensorium / Orientation: alert Psych mental status grossly normal Skin Skin Narrative: Patient has an ulcerated bleeding wound of the left palm over the third MCP joint approximately 1 cm in diameter. It is slowly oozing. There is a large amount of caked on quick clot and dried blood on the palm of his hand as well. MDM MDM MDM Narrative Medical decision making narrative: Patient is evaluate for bleeding wound to his left hand. Appears nontoxic in no acute distress. Vital signs significant for hypertension. He is hemodynamically stable however. Bleeding had initially been controlled however is hard to visualize the wound because there is so much caked on quick clot. This was removed but patient had return of some venous bleeding. Localized pressure applied. I attempted to inject lidocaine with epinephrine 1% into the area but patient refused stating he did not like needles and would not allow it. To silver nitrate sticks used to try to cauterize the area but there continue to be some oozing of blood. Gelfoam then placed over the area with direct pressure and wrapped with Coban. Patient had no further bleeding. Is given the remainder of the Gelfoam to use at home. Counseled on wound care. Given outpatient surgical follow-up is a started as some type of skin growth that then cause the bleeding. Patient given return precautions. I did offer to order CBC but patient declined at this time. He did request something for pain as it is burning a lot. Is given 1 dose of oxycodone but counseled after that he does needs alternate ibuprofen and Tylenol. Patient verbalized agreement understanding with this plan. Discharged home in stable condition. Is given return precautions. Discharge Plan Triage Chief Complaint: Wound ED Provider: Angelica Seevrino Dx/Rx/DC Orders Clinical Impression: Bleeding from wound, Injury of left palm Instructions: ED Bandage Elastic Wrap, ED Wound Care Prescriptions: No Action fluoxetine 40 mg Capsule 40 mg PO DAILY metolazone 2.5 mg Tablet 2.5 mg PO DAILY lisinopril 40 mg Tablet 20 mg PO DAILY atorvastatin 40 mg Tablet 40 mg PO DAILY carvedilol 6.25 mg Tablet 6.25 mg PO BID 30 Days Qty: 60 2RF Rx Instructions: Hold for heart less than 50 or systolic blood pressure less than 100 mmHg. torsemide 40 mg tablet 40 mg PO BID 30 Days Qty: 60 1RF spironolactone 25 mg Tablet 12.5 mg PO DAILY PRN (Reason: fluid) 30 Days Qty: 0 0RF Primary Care Provider: Wale Melgoza Referrals: Wale Melgoza MD [Primary Care Provider] - Odessa Guzman MD [Med Staff - Active Staff] - 2 Days for wound check Activity Restrictions/Additional Instructions: take Tylenol or a short course of ibuprofen/Aleve for further pain. Keep this bandage on for atleast 24 hours. When you do change it, if the underlying gel foam does not come off easily leave it on. If you have further bleeding you can apply direct pressure to that a new piece of Gelfoam to the area. We cannot get the bleeding controlled please return to the emergency room. Please follow-up with your PCP or general surgery for wound check given there was a growth on there to begin with. Print Language: Setswana Disposition Disposition: Home, Self Care
[2024-09-21] MEDS: Silver Nitrate (BKC) 1 EACH TOPICAL (15:26)
[2024-09-21] MEDS: Lidocaine 1% /Epi 1:100 (20ml) 20 ML Vial 5 ML INFILT (15:26)
[2024-09-21] MEDS: oxyCODONE 5 MG Tablet PO (16:57)
== END 2024-09-21 17:00 | disposition home or self-care (01) ==
PROVIDERS: Emergency Provider Emergency Medicine; PCP Family Medicine; Visit Provider Emergency Medicine
DX: S61.402A Unspecified open wound of left hand, initial encounter (principal); I48.91 Unspecified atrial fibrillation; E11.22 Type 2 diabetes mellitus with diabetic chronic kidney disease; Z87.891 Personal history of nicotine dependence; N18.9 Chronic kidney disease, unspecified; I12.9 Hypertensive chronic kidney disease with stage 1 through stage 4 chronic kidney disease, or unspecified chronic kidney disease; Z79.899 Other long term (current) drug therapy; Z90.49 Acquired absence of other specified parts of digestive tract; W22.09XA Striking against other stationary object, initial encounter
CPT/HCPCS: 99282

== ENCOUNTER 2025-04-17 15:44 | Inpatient (IN) | payer OTHER, SELFPAY ==
[2025-04-17] VITALS (12 sets, daily range): BP systolic 98–142; BP diastolic 45–98; PULSE 60–82; RESP 12–19; TEMP 36.1–37.1; O2SAT 93–100; BMI 37.2; BMI 36.8
--- NOTE | 2025-04-17 16:02 | EX.ED.DYSGE1 ---
HPI History of Present Illness Chief Complaint: Weakness Narrative Narrative: Patient is a 64-year-old male with past medical history of hypertension, atrial fibrillation, type 2 diabetes, chronic kidney disease who presents to the [facility] part with chief complaint of shortness of breath, generalized weakness, nausea vomiting and lightheadedness. Triage note states that he is dizzy he is not dizzy after confirmation with the patient he is lightheaded. Patient states that about a week ago he quit taking his torsemide and noted that around Monday he started swelling and having increased bloating. He states that his testicles are very swollen as well. Patient stated he has shortness of breath with exertion [facility] Medical History Bilateral lower extremity edema Diabetes Chronic pain Kidney disease Non-smoker CKD (chronic kidney disease) Diabetes mellitus type 2, diet-controlled Former smoker Atrial fibrillation Hypertension Home Medications ?Medication ?Instructions ?Recorded ?Last Taken ?Type metolazone 2.5 mg tablet 2.5 mg PO DAILY FLUID 07/06/21 03/27/24 History torsemide 40 mg tablet 40 mg PO DAILY 04/17/25 Unknown History Allergy/AdvReac Type Severity Reaction Status Date / Time codeine Allergy Swelling Verified 04/17/25 15:45 Surgical History History of appendectomy History of hernia repair (~05/2022) History of exploratory laparotomy (~05/2022) History of elbow surgery Social History Smoking Status: Former smoker ROS ROS ED ROS Narrative Constitutional: Complains of lightheadedness denies fevers, chills, headaches, dizziness Eyes: Denies change in vision double vision blurry vision Cardiovascular: Denies chest pain or palpitations Respiratory: Complains shortness of breath as noted above denies cough or wheezing Abdomen: Complains of abdominal fullness denies any specific pain complains of nausea vomiting : Denies urinary symptoms Neurological: Complains of generalized weakness Musculoskeletal: Denies back pain Skin: Denies rashes or lesions EXAM Physical Exam Narrative Exam Narrative: General: Patient lying in bed rest comfortably did not appear to be in acute distress Head: Atraumatic, normocephalic Eyes: PERRL bilaterally, EOMI bilateral, no conjunctival injection noted Neck: Soft, supple, trachea midline Cardiovascular: Regular rate and rhythm no murmurs gallops rubs noted Respiratory: Diminished breath sounds bilaterally Abdomen: Soft, nontender to palpation Genitourinary: Patient's testicles are swollen bilaterally he does have evidence of fungal rash noted underneath his pannus no concern for Iggy's gangrene Extremities: Patient has 2+ pitting edema in the bilateral lower extremities, patient has chronic skin changes noted to his lower extremities bilaterally, +4/5 strength noted in the bilateral upper and lower extremities Neurological: Patient following commands knew that he was at [facility] year is 2024 Skin: Warm, dry, tact Const Vital Signs: 04/17/25 15:45 04/17/25 15:48 04/17/25 16:29 Temperature 98.2 F 98.2 F Temperature Source Oral Oral Pulse Rate 71 82 Respiratory Rate 18 18 Respiratory Effort Respiratory Pattern Blood Pressure 136/89 H 126/70 H Blood Pressure Mean 104 88 Pulse Ox 96 95 Oxygen Delivery Method Room Air Room Air Room Air Oxygen Flow Rate (L/min) 04/17/25 16:29 04/17/25 16:48 04/17/25 17:32 Temperature 98.3 F 98.3 F Temperature Source Oral Oral Pulse Rate 75 70 Respiratory Rate 16 13 Respiratory Effort Normal Respiratory Pattern Tachypnea Blood Pressure 136/79 H 142/81 H Blood Pressure Mean 98 101 Pulse Ox 95 94 Oxygen Delivery Method Room Air Oxygen Flow Rate (L/min) 04/17/25 17:45 04/17/25 17:48 04/17/25 18:35 Temperature 98.3 F 98.7 F Temperature Source Oral Pulse Rate 72 65 72 Respiratory Rate 19 H 18 17 Respiratory Effort Respiratory Pattern Blood Pressure 114/98 H 114/98 H 119/57 L Blood Pressure Mean 103 103 77 Pulse Ox 95 95 100 Oxygen Delivery Method Room Air Oxygen Flow Rate (L/min) 04/17/25 19:00 Temperature Temperature Source Pulse Rate 68 Respiratory Rate 12 Respiratory Effort Respiratory Pattern Blood Pressure 108/55 L Blood Pressure Mean 72 Pulse Ox 99 Oxygen Delivery Method Nasal Cannula Oxygen Flow Rate (L/min) 2 MDM MDM MDM Narrative Medical decision making narrative: Patient is a 64-year-old male who presents to the [facility] with chief complaint of dyspnea on exertion, bloating, increased swelling after discontinuing his torsemide about a week ago. On the differential diagnosis includes but not limited to CHF exacerbation, pneumonia, UTI, electrolyte abnormality. Once workup is obtained reviewed he will be reevaluated. While awaiting blood work to return patient did experience wide-complex tachycardia nursing staff notified me I went into the room he was sitting having normal conversation with's and his rate was 153 bpm by the time staff attempted to repeat a EKG with this underlying rhythm the patient came out of the arrhythmia. Did print off a rhythm strip. Patient's original EKG was reviewed which showed multiple PVCs noted with questionable A-fib there is artifact so is difficult to exactly specify. I send this with the rhythm strip to the on-call microwave engineer Dr. Duggan. called back and he went back into the arrhythmia again however nursing staff was unable to catch this however repeat EKG at that point time did show A-fib with a rate of 80 bpm with PVCs noted. Cardiology does agree with me that he is likely going into A-fib RVR with aberrancy. They are recommending amiodarone 150 mg IV bolus followed by a amiodarone drip at 1 mg/min. These were ordered. His echocardiogram from 03/30/2024 was reviewed which showed ejection fraction of 65% with grade 2 diastolic dysfunction therefore we felt Amio is better option as opposed to Cardizem given his diastolic dysfunction. Patient CBC reviewed and was significant for leukocytosis of 5.7, hemoglobin 7.9 which is down from previous blood draw at 11.4, platelet count was 130 indicating thrombocytopenia, sodium normal at 135, patient was hypokalemic with a potassium of 2.3 patient was given 40 mill equivalents of oral supplementation as well as 40 mill equivalents intravenously, patient did have an anion gap of 16, creatinine was elevated 1.72 however he has chronic kidney disease. Patient's troponin was noted be 46 delta troponin pending, proBNP elevated 3034. Patient TSH normal at 2.43, free T4 at 1.40 and T3 at 2.1. Patient's magnesium level is 1.8 however while this was pending given his arrhythmias that he was experiencing with his hypokalemia I did order 2 g of magnesium. Patient chest x-ray reviewed by myself and by radiology which showed findings favoring edema in setting of cardiomegaly. Spoke with hospitalist Dr. Simmons who accept patient for admission. Patient will be started on heparin. Patient was notified is agreeable to plan all course concerns answered. Critical care time 47 minutes Lab Data Labs: Laboratory Results - last 24 hr 04/17/25 04/17/25 15:55 17:56 WBC 5.7 RBC 2.82 L Hgb 7.9 L Hct 24.7 L MCV 87.6 MCH 28.0 MCHC 32.0 RDW Std Deviation 59.0 H RDW Coeff of Daniel 18.3 H Plt Count 130 L MPV 8.3 Immature Gran % (Auto) 0.500 Neut % (Auto) 69.8 Lymph % (Auto) 13.6 L Alpine % (Auto) 14.5 H Eos % (Auto) 0.7 Baso % (Auto) 0.9 Absolute Neuts (auto) 3.9 Absolute Lymphs (auto) 0.77 L Nucleated RBC % 0 Sodium 135 Potassium 2.3 L* Chloride 87 L Carbon Dioxide 31.3 Anion Gap 16 H BUN 19 Creatinine 1.72 H Estim Creat Clear Calc 62.57 Est GFR (MDRD) Non-Af 44 L BUN/Creatinine Ratio 11.0 Glucose 113 H Calcium 9.5 Magnesium 1.8 Troponin T High Sens 46 H Troponin T Hi Sens 2 Hr 47 H NT pro BNP II 3034 H TSH 2.430 Free T4 1.40 Free T3 pg/dL 2.1 L Radiography Diagnostic Testing: Clinical Impression(s) from Imaging Studies Chest X-Ray 04/17/25 16:20 IMPRESSION: Findings favoring edema in the setting of cardiomegaly. Correlate with fever status to exclude infection. Reading Location: [id number] Discharge Plan Dx/Rx/DC Orders Clinical Impression: Atrial fibrillation with rapid ventricular response, Hypokalemia, CHF exacerbation Disposition Disposition: Acute Care [facility]
--- NOTE | 2025-04-17 16:09 | EKG12_ITS ---
Test Reason : repeat Blood Pressure : */* mmHG Vent. Rate : 80 BPM Atrial Rate : * BPM P-R Int : * ms QRS Dur : 124 ms QT Int : 442 ms P-R-T Axes : * -40 118 degrees QTcB Int : 509 ms Atrial fibrillation with premature ventricular or aberrantly conducted complexes Left axis deviation Non-specific intra-ventricular conduction delay Nonspecific ST and T wave abnormality Abnormal ECG When compared with ECG of 17-Apr-2025 16:40, Previous ECG has undetermined rhythm, needs review Nonspecific T wave abnormality, improved in Inferior leads QT has lengthened Confirmed by Everardo Chavez ([id number]), map editor KYM BANDA ([id number]) on 04/22/2025 10:04:54 AM Referred By: Zeyad Cowan Confirmed By: Everardo Chavez
--- NOTE | 2025-04-17 16:20 | RAD_ITS ---
PROCEDURE: CHEST PA AND LATERAL 04/17/2025 REASON FOR EXAM: SOB TECHNIQUE: Frontal and lateral views of the chest. COMPARISON: 09/01/2024. FINDINGS: Hardware: None. Heart: The heart is enlarged. Mediastinum: The mediastinal contour is stable. Lungs: Central predominant airspace opacities and peripheral reticular opacities in a pattern favoring edema. Bones: Degenerative changes are identified within the thoracic spine. RAD/Chest PA and Lateral IMPRESSION: Findings favoring edema in the setting of cardiomegaly. Correlate with fever s tatus to exclude infection. Reading Location: [place] [id number]
[2025-04-17 16:21] LABS: Absolute Lymphocyte Count 0.77 X10^3/uL (0.83-4.51); Absolute Neutrophil Count 3.9 X10^3/uL (2.0-7.7); Basophil# 0.05 X10^3/uL; Basophil% 0.9 % (0-1); Eosinophil# 0.04 X10^3/uL; Eosinophils% 0.7 % (0-5); Hematocrit 24.7 % (40-54); Hemoglobin 7.9 g/dL (13.0-16.5); Lymphocyte # 0.77 X10^3/ul (0.83-4.51); Lymphocyte % 13.6 % (19-41); Mean Corpuscular Volume 87.6 fL (80-94); Mean Platelet Vol. 8.3 fl (6.2-12.0); Monocyte# 0.82 X10^3/uL; Monocyte% 14.5 % (0-10); NRBC Flagged by Analyzer 0 % (0-5); Neutrophil # 3.94 X10^3/uL (2.7-7.7); Neutrophil % 69.8 % (47-70); Platelet Count 130 K/mm3 (150-450); RBC Distribution Width CV 18.3 % (11.6-14.6); Red Blood Count 2.82 M/mm3 (4.6-6.2); White Blood Count 5.7 K/mm3 (4.4-11.0)
[2025-04-17 16:44] LABS: Free T3 2.1 pg/mL (2.18-3.98); Pro- Brain NATRIURETIC PEPTIDE 3034 pg/mL (<=900); Troponin T High Sensitivity 46 ng/L (<=22)
[2025-04-17 16:57] LABS: Anion Gap 16 (5-15); BUN 19 mg/dL (4-19); Calcium,Total 9.5 mg/dL (7.6-11.0); Carbon Dioxide 31.3 mmol/L (21.0-32.0); Chloride 87 mmol/L (98-108); Creatinine, Serum 1.72 mg/dL (0.70-1.20); EST Glomerular Filtration Rate 44 (>60); Estimated Creatinine Clearance 62.57 ml/min (50-250); Glucose 113 mg/dL (70-99); Potassium 2.3 mmol/L (3.3-5.1); Sodium Level 135 mmol/L (133-145)
[2025-04-17] MEDS: Potassium Chloride Oral Tablet 20 MEQ 40 MEQ PO (17:06)
[2025-04-17] MEDS: Amiodarone 150 MG in Dextrose 5%-Water (100mL Bag) 100 ML 600 MG IV BOLUS (17:32)
[2025-04-17] MEDS: Amiodarone 360 MG in Dextrose 5% Viaflo Bag 192.8 ML 33.3 MG CONT INF (17:48)
[2025-04-17 17:51] LABS: Magnesium 1.8 mg/dL (1.5-2.2)
[2025-04-17] MEDS: Potassium Chloride 10mEq/100mL 10 MEQ/100 ML IV.SOLN. 100 MEQ IV BOLUS ×2 (18:02→19:01)
[2025-04-17] MEDS: Magnesium Sulfate 2 GM in Dextrose 5%-Water (100mL Bag) 100 ML IV (18:30)
[2025-04-17 18:35] LABS: Troponin T High Sens 2 HR 47 ng/L (<=22)
--- NOTE | 2025-04-17 18:51 | CM.ED ---
Social work Reason for referral: assisted living information Referral source: Dorothy MARTINEZ This SW was consulted for meeting with patient's son, Tray, in order to provide information on assisted living facilities. Per Dorothy MARTINEZ, patient lives with Tray and Tray states increasing stress related to caring for patient. This SW met with Tray separately, introducing self and role at [facility]. Tray stated just wanting some basic information about assisted livings as Tray is not certain about how the patient will respond and wants to be able to have the conversation at the appropriate time. SW provided list of assisted living options and answered questions as needed. No further needs identified at this time. Callie Haynes, PULP SCREEN OPERATOR, FIELD TRAINING AGENT
--- NOTE | 2025-04-17 19:16 | ECHOD_ITS ---
Reason For Study Reason For Study: ARRHYTHMIA Procedure This was a limited 2D transthoracic echocardiogram. parasternal images only. PT during exam @ 10 am. Exam performed portable in patient room. Left Ventricle Normal left ventricle. The estimated ejection fraction is 55???60 %. Right Ventricle RV not well-visualized. Atria The left atrium is moderately enlarged. RNA not well-visualized Limited study. Mitral Valve The mitral valve is structurally normal. No prolapse or stenosis seen. Trivial mitral valve insufficiency. Tricuspid Valve Normal tricuspid valve. Aortic Valve Trisinus/trileaflet aortic valve. Pulmonic Valve The pulmonic valve is not well visualized. Great Vessels The aortic root is not well visualized. Pericardium/Pleural No pericardial effusion. MMode/2D Measurements & Calculations LVIDd: 5.9 cm IVSd: 1.1 cm Ao root diam: 3.1 cm LVIDs: 3.1 cm LVPWd: 1.1 cm FS: 47.2 % LVAd ap4: 35.8 cm2 SV(MOD-sp4): 86.3 ml SV(sp4-el): 87.4 ml LVLd ap4: 8.2 cm SI(MOD-sp4): 34.1 ml/m2 EDV(MOD-sp4): 130.9 ml EDV(sp4-el): 133.0 ml LVAs ap4: 19.2 cm2 LVLs ap4: 6.8 cm ESV(MOD-sp4): 44.6 ml ESV(sp4-el): 45.6 ml EF(MOD-sp4): 65.9 % EF(sp4-el): 65.7 % LA dimension(2D): 6.6 cm Doppler Measurements & Calculations PA V2 max: 89.3 cm/sec PI dec slope: 167.7 cm/sec2 TR max tam: 228.0 cm/sec TR max P.8 mmHg ECHO/Echo Complete Interpretation Summary The estimated ejection fraction is 55???60 %. RV not well-visualized, appeared enlarged. RA not well-visualized Limited study Overall normal LV???systolic function Difficult to comment on valves or RV As it is a limited study/TDS Previous study revealed severe pulmonary hypertension. Ordering Physician: Linnea Simmons Referring Physician: Wale Melgoza Performed By: Lamar Kramer, ISMAEL, RVT
--- NOTE | 2025-04-17 19:21 | HP.PCM.HOS_ITS ---
HPI - General General Date of Admission: 04/17/25 Date of Service: 04/17/25 Chief Complaint: Worsening shortness of breath HPI Narrative CHERYL HERRERA, with past medical history of HFpEF with severe pulmonary hypertension, CKD stage III, medication noncompliance, prior history of A-fib with RVR who presents to the ED with concerns of worsening shortness of breath for the last few days. Patient is a poor historian, and has negated his health for a long period of time. States that he was previously recommended diuretics by his primary care doctor in [facility] but he discontinued medications last week as it was resulting in nausea. The medication on file was spironolactone and metolazone that were started for his heart failure. Over the last week he has noticed progressive swelling of bilateral legs as well as scrotal edema. He lives by himself, sleeps in an ottoman but denies any PND or orthopnea. Has some progressive exertion dyspnea. No fever or chills. At the time of presentation in the ED blood pressure 108/55, pulse 68, respiratory rate 12, oxygen saturation 99% on nasal cannula 2 L. He had runs of wide-complex tachycardia that was evaluated by cardiology and was suspicious for A-fib with aberrancy. For this he has been started on amiodarone gtt. WBC 5.7, hemoglobin 7.9, platelet count 130, potassium 2.3, sodium 135, chloride 87, BUN 19, creatinine 1.7, high-sensitivity troponin 46 and 47, NT proBNP 3034, TSH 2.4, free T41.4, free T3 2.1. [facility] Medical History Bilateral lower extremity edema Diabetes Chronic pain Kidney disease Non-smoker CKD (chronic kidney disease) Diabetes mellitus type 2, diet-controlled Former smoker Atrial fibrillation Hypertension Home Medications ?Medication ?Instructions ?Recorded ?Last Taken ?Type metolazone 2.5 mg tablet 2.5 mg PO DAILY FLUID 03/27/24 History torsemide 40 mg tablet 40 mg PO DAILY 04/17/25 Unkn own History Allergy/AdvReac Type Severity Reaction Status Date / Time codeine Allergy Swelling Verified 04/17/25 15:45 Surgical History History of appendectomy History of hernia repair (~05/2022) History of exploratory laparotomy (~05/2022) History of elbow surgery Social History Smoking Status: Former smoker ROS Review of Systems ROS Unobtainable: Denies due to encephalopathy, due to endotracheal tube, due to mental condition, due to mental status or other Constitutional Constitutional: Reports change in weight and fatigue Eyes Eyes: Denies blurry vision, change in eye color, change in vision, discharge from eye(s), double vision, erythema, eye pain, loss of vision or other ENT HEENT: Denies abnormal hearing, dysphagia, ear pain, epistaxis, headache(s), hearing loss, nasal congestion, nasal discharge, post nasal drip, sinus pressure, sore throat or other Cardiovascular Cardiovascular: Reports dyspnea on exertion; Denies chest pain, claudication, edema, lightheadedness, orthopnea, palpitations, paroxysmal nocturnal dyspnea, rapid heart rate, syncope or other Respiratory/Chest Respiratory/Chest: Denies cough, dyspnea, excessive phlegm production, hemoptysis, productive cough, shortness of breath at rest, shortness of breath with exertion, wheezing or other Gastrointestinal Gastrointestinal: Denies abdominal pain, coffee ground emesis, constipation, diarrhea, dyspepsia, hematemesis, hematochezia, loose stools, melena, nausea, vomiting or other Genitourinary Genitourinary: Denies burning urination, difficulty urinating, dysuria, hematuria, nocturia, urinary frequency, urinary hesitancy, urinary incontinence, urinary urgency or other Musculoskeletal Musculoskeletal: Denies arthralgias, back pain, joint pain, joint stiffness, joint swelling, myalgias, neck pain or other Neurologic Neurologic: Denies abnormal gait, abnormal speech, confusion, disequilibrium, dizziness, focal weakness, headache(s), numbness, paresthesias, seizure-like activity, seizures, syncope, tingling, tremor(s) or other Psychiatric Psychiatric: Denies anxiety, depression, homicidal ideation, suicidal ideation or other Endocrine Endocrinology: Denies change in body appearance, cold intolerance, excessive sweating, heat intolerance, polydipsia, polyuria or other Hematologic/Lymphatic Hematologic/Lymphatic: Denies anemia, easy bleeding, easy bruising, lymphadenopathy or other Allergic/Immunologic Allergic/Immunologic: Denies rhinitis, hives, eczemia, asthma or other Vital Signs Vital Signs Vital Signs: 04/17/25 15:45 04/17/25 15:48 04/17/25 16:29 Temperature 98.2 F 98.2 F Temperature Source Oral Oral Pulse Rate 71 82 Respiratory Rate 18 18 Respiratory Effort Respiratory Pattern Blood Pressure 136/89 H 126/70 H Blood Pressure Mean 104 88 Pulse Ox 96 95 Oxygen Delivery Method Room Air Room Air Room Air Oxygen Flow Rate (L/min) 04/17/25 16:29 04/17/25 16:48 04/17/25 17:32 Temperature 98.3 F 98.3 F Temperature Source Oral Oral Pulse Rate 75 70 Respiratory Rate 16 13 Respiratory Effort Normal Respiratory Pattern Tachypnea Blood Pressure 136/79 H 142/81 H Blood Pressure Mean 98 101 Pulse Ox 95 94 Oxygen Delivery Method Room Air Oxygen Flow Rate (L/min) 04/17/25 17:45 04/17/25 17:48 04/17/25 18:35 Temperature 98.3 F 98.7 F Temperature Source Oral Pulse Rate 72 65 72 Respiratory Rate 19 H 18 17 Respiratory Effort Respiratory Pattern Blood Pressure 114/98 H 114/98 H 119/57 L Blood Pressure Mean 103 103 77 Pulse Ox 95 95 100 Oxygen Delivery Method Room Air Oxygen Flow Rate (L/min) 04/17/25 19:00 Temperature Temperature Source Pulse Rate 68 Respiratory Rate 12 Respiratory Effort Respiratory Pattern Blood Pressure 108/55 L Blood Pressure Mean 72 Pulse Ox 99 Oxygen Delivery Method Nasal Cannula Oxygen Flow Rate (L/min) 2 Weight Weight: 290 lb 2.053 oz Body Mass Index (BMI) 37.2 Physical Exam Const alert and oriented x3 HEENT normocephalic and head/scalp atraumatic Neck no lymphadenopathy Resp normal respiratory effort Cardio Cardio Narrative: Ejection systolic murmur present GI normal to inspection, nondistended, normoactive bowel sounds Extremity full ROM Extremity Narrative: Bilateral pitting pedal edema Neuro oriented x3 Sensorium / Orientation: awake and alert Psych affect normal Results Medical Records Data Attestation: I reviewed the patient's medical records Lab / Micro Data Attestation: I reviewed the patient's lab results. 04/17/25 15:55 04/17/25 15:55 Labs: Laboratory Results - last 24 hr 04/17/25 15:55: WBC 5.7, RBC 2.82 L, Hgb 7.9 L, Hct 24.7 L, MCV 87.6, MCH 28.0, MCHC 32.0, RDW Std Deviation 59.0 H, RDW Coeff of Daniel 18.3 H, Plt Count 130 L, MPV 8.3, Immature Gran % (Auto) 0.500, Neut % (Auto) 69.8, Lymph % (Auto) 13.6 L , [place] % (Auto) 14.5 H, Eos % (Auto) 0.7, Baso % (Auto) 0.9, Absolute Neuts (auto) 3.9, Absolute Lymphs (auto) 0.77 L, Nucleated RBC % 0, Sodium 135, P otassium 2.3 L*, Chloride 87 L, Carbon Dioxide 31.3, Anion Gap 16 H, BUN 19, C reatinine 1.72 H, Estim Creat Clear Calc 62.57, Est GFR (MDRD) Non-Af 44 L, BUN/Creatinine Ratio 11.0, Glucose 113 H, Calcium 9.5, Magnesium 1.8, Troponin T High Sens 46 H, NT pro BNP II 3034 H, TSH 2.430, Free T4 1.40, Free T3 pg/dL 2.1 L 04/17/25 17:56: Troponin T Hi Sens 2 Hr 47 H Imaging Radiology Impression Chest X-Ray 04/17/25 16:20 IMPRESSION: Findings favoring edema in the setting of cardiomegaly. Correlate with fever status to exclude infection. Reading Location: [place] [id number] Assessment & Plan Assessment/Plan (1) CHF exacerbation: PLAN: Plan 64-year-old male with past history of HFpEF with severe pulmonary hypertension, CKD stage III, medication noncompliance, presents to the ED with concerns regarding acute decompensated heart failure with wide-complex tachycardia secondary to A-fib with aberrancy. His last echocardiogram showed ejection fraction of 65% with grade 2 diastolic dysfunction with severe biatrial dilation, and severe pulmonary hypertension # ADHF # HFpEF with severe pulmonary hypertension - Will start him on diuretics after correction of his potassium - Elevate limb - Strict I's and O's - Daily weight monitoring - Nutrition consult regarding dietary compliance - Cardiology consult - Echocardiogram - Will start him on goal-directed medical therapy after baseline evaluation but his compliance is limited # A-fib with aberrancy - Continue amiodarone drip as per cardiology - Started on enoxaparin for anticoagulation - Admit to PCU for close monitoring and telemetry -Will restart his prior carvedilol # Hypokalemia - Likely diuretic associated - Received oral as well as IV correction in the ED - Repeat potassium levels #Hypomagnesemia - Received magnesium supplementation in the ED #CKD stage III - Likely has a component of cardiorenal syndrome - Will continue with diuresis and monitor creatinine # Hypertension - Continue to monitor blood pressure -Not on any medications at this time # Morbid obesity - Monitor for now
[2025-04-17] MEDS: proCHLORPERazine 10 MG/2 ML Vial 5 MG IV (23:00)
[2025-04-17] MEDS: Acetaminophen 325 MG Tablet 650 MG PO (23:42)
[2025-04-18] VITALS (11 sets, daily range): BP systolic 98–131; BP diastolic 43–70; PULSE 52–86; RESP 13–18; TEMP 35.8; O2SAT 93–100
[2025-04-18] MEDS: Amiodarone 360 MG in Dextrose 5% Viaflo Bag 192.8 ML 16.7 MG CONT INF
[2025-04-18] MEDS: Potassium Chloride Oral Tablet 20 MEQ PO (00:22)
[2025-04-18 06:23] LABS: Absolute Lymphocyte Count 0.75 X10^3/uL (0.83-4.51); Absolute Neutrophil Count 3.5 X10^3/uL (2.0-7.7); Basophil# 0.04 X10^3/uL; Basophil% 0.8 % (0-1); Eosinophil# 0.01 X10^3/uL; Eosinophils% 0.2 % (0-5); Hematocrit 20.3 % (40-54); Hemoglobin 6.5 g/dL (13.0-16.5); Lymphocyte # 0.75 X10^3/ul (0.83-4.51); Lymphocyte % 14.9 % (19-41); Mean Corpuscular Hgb 27.5 pg (27.0-32.0); Mean Platelet Vol. 8.8 fl (6.2-12.0); Monocyte# 0.71 X10^3/uL; Monocyte% 14.1 % (0-10); NRBC Flagged by Analyzer 0 % (0-5); Neutrophil % 69.2 % (47-70); Platelet Count 110 K/mm3 (150-450); RBC Distribution Width CV 18.2 % (11.6-14.6); Red Blood Count 2.36 M/mm3 (4.6-6.2); White Blood Count 5.1 K/mm3 (4.4-11.0)
[2025-04-18 06:50] LABS: ALB/GLOB Ratio 0.8 RATIO (0.9-2.4); AST(SGOT) 16 U/L (<=37); Alanine Aminotransfer ALT/SGPT < 5 U/L (<=46); Albumin, Serum 3.2 g/dL (3.4-4.8); Alkaline Phosphatase 69 U/L (40-129); Anion Gap 11 (5-15); BUN 20 mg/dL (4-19); BUN/Creat Ratio 11.1 RATIO (10-20); Calcium,Total 8.9 mg/dL (7.6-11.0); Carbon Dioxide 32.8 mmol/L (21.0-32.0); Chloride 89 mmol/L (98-108); Creatinine, Serum 1.76 mg/dL (0.70-1.20); EST Glomerular Filtration Rate 43 (>60); Estimated Creatinine Clearance 60.86 ml/min (50-250); Globulin 4.1 g/dL (2.2-4.2); Glucose 107 mg/dL (70-99); Potassium 2.4 mmol/L (3.3-5.1); Protein, Total 7.2 g/dL (5.9-8.4); Sodium Level 133 mmol/L (133-145); Total Bilirubin 1.67 mg/dL (0.00-1.30)
--- NOTE | 2025-04-18 08:21 | PN.HOSP_ITS ---
Reason for Visit Reason for Visit: Diagnoses Heart failure, unspecified (04/17/25) Objective Data Objective Data Vital Signs: Vital Signs Temp Pulse Resp BP Pulse Ox O2 Del Method O2 Flow Rate 96.4 F L 59 L 16 122/66 H 98 Nasal Cannula 2 04/18/25 01:00 04/18/25 08:00 04/18/25 08:00 04/18/25 08:00 04/18/25 08:00 04/18/25 08:00 04/18/25 08:00 Oxygen Flow Rate (L/min) 2 Oxygen Delivery Method Nasal Cannula Weight: 130.4 kg Body Mass Index (BMI) 36.8 Intake & Output: Intake and Output for Last 24 Hours 04/16/25 04/17/25 04/18/25 23:59 23:59 23:59 Intake Total 578.49 / 855.33 910.44 / 910.44 Output Total 750 / 750 Balance 578.49 / 505.33 160.44 / 160.44 Lab / Micro Data 04/18/25 06:14 04/18/25 06:14 Labs: Laboratory Results - last 24 hr 04/17/25 15:55: WBC 5.7, RBC 2.82 L, Hgb 7.9 L, Hct 24.7 L, MCV 87.6, MCH 28.0, MCHC 32.0, RDW Std Deviation 59.0 H, RDW Coeff of Daniel 18.3 H, Plt Count 130 L, MPV 8.3, Immature Gran % (Auto) 0.500, Neut % (Auto) 69.8, Lymph % (Auto) 13.6 L , [place] % (Auto) 14.5 H, Eos % (Auto) 0.7, Baso % (Auto) 0.9, Absolute Neuts (auto) 3.9, Absolute Lymphs (auto) 0.77 L, Nucleated RBC % 0, Sodium 135, P otassium 2.3 L*, Chloride 87 L, Carbon Dioxide 31.3, Anion Gap 16 H, BUN 19, C reatinine 1.72 H, Estim Creat Clear Calc 62.57, Est GFR (MDRD) Non-Af 44 L, BUN/Creatinine Ratio 11.0, Glucose 113 H, Calcium 9.5, Magnesium 1.8, Troponin T High Sens 46 H, NT pro BNP II 3034 H, TSH 2.430, Free T4 1.40, Free T3 pg/dL 2.1 L 04/17/25 17:56: Troponin T Hi Sens 2 Hr 47 H 04/17/25 20:29: Potassium Cancelled 04/18/25 06:14: WBC 5.1, RBC 2.36 L, Hgb 6.5 L, Hct 20.3 L, MCV 86.0, MCH 27.5, MCHC 32.0, RDW Std Deviation 57.0 H, RDW Coeff of Daniel 18.2 H, Plt Count 110 L, MPV 8.8, Immature Gran % (Auto) 0.800, Neut % (Auto) 69.2, Lymph % (Auto) 14.9 L , [place] % (Auto) 14.1 H, Eos % (Auto) 0.2, Baso % (Auto) 0.8, Absolute Neuts (auto) 3.5, Absolute Lymphs (auto) 0.75 L, Nucleated RBC % 0, Sodium 133, P otassium 2.4 L*, Chloride 89 L, Carbon Dioxide 32.8 H, Anion Gap 11, BUN 20 H, C reatinine 1.76 H, Estim Creat Clear Calc 60.86, Est GFR (MDRD) Non-Af 43 L, BUN/Creatinine Ratio 11.1, Glucose 107 H, Hemoglobin A1c 5.0, Calcium 8.9, Total Bilirubin 1.67 H, AST 16, ALT < 5, Alkaline Phosphatase 69, Total Protein 7.2, A lbumin 3.2 L, Globulin 4.1, Albumin/Globulin Ratio 0.8 L Radiography Diagnostic Testing: Radiology Impression Chest X-Ray 04/17/25 16:20 IMPRESSION: Findings favoring edema in the setting of cardiomegaly. Correlate with fever status to exclude infection. Reading Location: [place] [address] Assessment & Plan Assessment/Plan (1) CHF exacerbation: PLAN: Plan 64-year-old male with past history of HFpEF with severe pulmonary hypertension, CKD stage III, medication noncompliance, presents to the ED with concerns regarding acute decompensated heart failure with wide-complex tachycardia secondary to A-fib with aberrancy. His last echocardiogram showed ejection fraction of 65% with grade 2 diastolic dysfunction with severe biatrial dilation, and severe pulmonary hypertension # ADHF # HFpEF with severe pulmonary hypertension - Will start him on diuretics after correction of his potassium - Elevate limb - Strict I's and O's - Daily weight monitoring - Nutrition consult regarding dietary compliance - Cardiology consult - Echocardiogram - Will start him on goal-directed medical therapy after baseline evaluation but his compliance is limited # A-fib with aberrancy - Continue amiodarone drip as per cardiology - Started on enoxaparin for anticoagulation - Admit to PCU for close monitoring and telemetry -Will restart his prior carvedilol # Hypokalemia - Likely diuretic associated - Received oral as well as IV correction in the ED - Repeat potassium levels #Hypomagnesemia - Received magnesium supplementation in the ED #CKD stage III - Likely has a component of cardiorenal syndrome - Will continue with diuresis and monitor creatinine # Hypertension - Continue to monitor blood pressure -Not on any medications at this time # Morbid obesity - Monitor for now
[2025-04-18 08:31] LABS: Magnesium 1.9 mg/dL (1.5-2.2); Phosphorus 3.1 mg/dL (2.7-4.5)
--- NOTE | 2025-04-18 08:40 | NURSING ---
Patient went into SVT while laying in bed. This RN and auditor in charge went into the room and had patient try different techniques to convert rhythm. Patient was able to cough and come out of SVT. This RN asked patient about getting a second IV for access since he was already on a medication that was not compatible with other medications. Patient stated he understood but refused to allow another IV access to be obtained as this RN explain the importance. Patient stated that he felt like we were saying he was not intelligent. Patient continued to refuse IV access.
[2025-04-18] MEDS: Potassium Chloride Oral Tablet 20 MEQ 40 MEQ PO (08:46)
[2025-04-18 09:05] LABS: Ferritin 33 ng/mL (37-417); Iron 20 ug/dL (65-175); Iron Binding Capacity,Total 252 ug/dL (250-450); Iron Binding Capacity,Unsat 232 ug/dL (228-428)
--- NOTE | 2025-04-18 09:15 | NURSING ---
Patient needs another IV for blood transfusion along with IV magnesium replacement. Patient currently on IV amiodarone drip and refusing to allow nurses to place a second IV. Will continue to ask patient and explain importance of this. MD was notified. PICC line order placed per MD verbal order.
--- NOTE | 2025-04-18 10:00 | NURSING ---
Patient had rhythm change on monitor car operator while ECHO was in progress. This RN went into the room and patient was unresponsive, staff assist called, then BLISTER PACK OPERATOR activated. Patient's code status was DNRCCA-No Intubation, so a code blue was not called.
--- NOTE | 2025-04-18 10:09 | CASEMGMT ---
POWER responded to a rapid response. SW attempted to call patient's son Jose Juan. Voice mail has not been set up. SW called Moe another individual listed on contacts with same last name. SW left a message requesting a return call. Patient . POWER reviewed ED SW note and it indicated patient's son Tray was in the ED last night with patient. SW reviewed patient's contacts in the computer and Tray's name and number was listed. SW provided physician with this information. Physician contacted Tray and notified him of patient's . Ashley DSOUZA
--- NOTE | 2025-04-18 11:56 | CASEMGMT ---
Patient's 3 sons arrived at [facility]. SW met with patient's sons. Introduced self and role at [facility]. SW provided emotional support. SW answered questions that SW was able to answer. SW offered water and all 3 requested water. SW provided them with water. They asked to talk with nurse. SW let them know SW will notify the nurse. Nurse notified. Ashley Hoff CLIP LOADING MACHINE FEEDER LIANNA
--- NOTE | 2025-04-18 12:05 | EXP.PCM_ITS ---
Preliminary Cause of Preliminary Cause of Preliminary Cause of : Acute on chronic congestive heart failure with preserved ejection fraction Severe pulmonary pretension Ventricular arrhythmia Date of Admission: 04/17/25 Date of : 04/18/25 Principle Diagnosis Acute on chronic congestive heart failure with preserved ejection fraction Severe pulmonary pretension Torsade de pointes Ventricular arrhythmia Hypokalemia Severe anemia Problem List: Acute on chronic congestive heart failure with preserved ejection fraction Severe pulmonary pretension Torsade de pointes Ventricular arrhythmia Hypokalemia Severe anemia Hospital Course Patient is a 64-year-old gentleman with multiple comorbidities including chronic congestive heart failure with preserved ejection fraction, severe pulmonary hypertension, medication noncompliance who presented to the emergency department with progressive shortness of breath and bipedal edema. An assessment of acute congestive heart failure superimposed on chronic congestive heart failure was made. Patient was admitted to a monitored bed for subsequent management. Patient treatment was initiated with diuretics. While being monitored patient was found to have wide-complex tachycardia as well as torsade. Subsequently started on amiodarone. Patient potassium on the morning of his expiration was 2.4. Magnesium was 1.8 however given findings of torsades on patient monitor and order was given for patient to receive 4 g of magnesium sulfate. Consultati on was placed to cardiology. Had a discussion with patient regarding his critical condition and the need to allow for additional IV access to enable appropriate therapy. Patient declined any further IV access placement. He subsequently requested to change his CODE STATUS from full code to DNR CCA DO NOT INTUBATE. Patient was found to be in ventricular arrhythmia (V-fib) with patient CODE STATUS being DNR CCA DO NOT INTUBATE ACLS protocol was not initiated patient however did receive magnesium bolus. Patient was found without spontaneous breathing and with heart tones on 10 00 on 04/18/2025. Patient was pronounced . Patient's family notified. Visit Charges Inpatient E&M: 69547 Disch Hosp
== END 2025-04-18 10:00 | DRG 291 ==
LOC: ED 19:05 → PCU 20:07
PROVIDERS: Family Medicine; Admitting Provider Internal Medicine; Emergency Provider Emergency Medicine; PCP Family Medicine; Referring Provider Emergency Medicine; Visit Provider Internal Medicine
DX: I13.0 Hypertensive heart and chronic kidney disease with heart failure and stage 1 through stage 4 chronic kidney disease, or unspecified chronic kidney disease (principal); I50.33 Acute on chronic diastolic (congestive) heart failure; I47.21 Torsades de pointes; D69.6 Thrombocytopenia, unspecified; Z66 Do not resuscitate; I27.20 Pulmonary hypertension, unspecified; N18.30 Chronic kidney disease, stage 3 unspecified; E66.01 Morbid (severe) obesity due to excess calories; E11.22 Type 2 diabetes mellitus with diabetic chronic kidney disease; I48.91 Unspecified atrial fibrillation; E87.6 Hypokalemia; E87.8 Other disorders of electrolyte and fluid balance, not elsewhere classified; I49.3 Ventricular premature depolarization; N50.89 Other specified disorders of the male genital organs; Z87.891 Personal history of nicotine dependence; Z90.49 Acquired absence of other specified parts of digestive tract; Z98.890 Other specified postprocedural states
CPT/HCPCS: 71046; 80048; 80053; 82728; 83036; 83540; 83550; 83735; 83880; 84100; 84439; 84443; 84481; 84484; 85025; 93005; 93306; 94762; 99285; Q9957; A4216